=== PATIENT | female | born 2005 | race Caucasian/White ===

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

== ENCOUNTER 2025-08-13 18:49 | Emergency (ER) | payer OTHER, SELFPAY ==
--- OUTSIDE RECORDS SUMMARY | 2025-05-02 09:30 | XMS_ITS ---
Author Organization [facility] Address [address] [place] [address] Care Team Providers Care Hearing Aid Assembly Supervisor Name Role Phone Julieta Zelaya Primary Care Provider [phone] None, No PCP Unavailable Unavailable REASON FOR VISIT Annual Encounters Encounter Location Date Provider Diagnosis [facility] [address] [place] [address] 05/02/2025 Julieta Zelaya Plan Of Treatment Next Appt Details Provider Name:Julieta Zelaya , 04/19/2026 01:00:00 PM, [address], [place], [address], Progress Notes * Bárbara ARIASDOB:2005 (20 yo F)Acc No.[id number]:05/02/2025 Patient: Scott BEARia Provider: Shiela Zelaya D.O. :2005 A ge:20 Y S ex:Female Date:05/02/2025 Address:[address] [id number] Subjective: * Chief Complaints: * 1 . Annual. * Medical History: Objective: * Vitals: Assessment: Plan: * Treatment: * Images: Billing Information: * Visit Code: * Procedure Codes: * Electronic signature of Kimmy Zelaya MD on 08/13/2025 at 06:53 PM PERIODONTAL ASSISTANT Sign off status: Pending * Provider: Shiela Zelaya D.O. Date: 0 05/02/2025 Generated for Yasmin baez/Paolo/Leonid on: 1 10/13/2024 06:53 PM PERIODONTAL ASSISTANT
--- OUTSIDE RECORDS SUMMARY | 2025-06-29 13:30 | XMS_ITS | Encounter Summary ---
Author Organization [facility] Address [address] [place] [address]. [place] [address] Care Team Providers Care Chief Optometry Service Name Role Phone Misti Harrison MD Unavailable [facility] Primary Ca re Provider Etta Ocampo MD Unavailable [phone] Rhina Osullivan MD Unavailable Unavailable Ashley Diaz APRN GUEST REQUEST RUNNER Unavaila ble Delmy Hoffman PA-C Unavailable [phone] Reason for Visit * Diagnostic Imaging XR (Routine) - Pending Review Specialty Diagnoses / Procedures Referred By Contpelon t Referred To Contact Radiology. Diagnoses Rectal prolapse Procedures XR Defecography Delmy Hoffman PA-C [address] [place] [address] Phone: tel: fax: Referral ID Status Reason Start Date Expiration Date V isits Requested Visits Authorized [id number] Pending Review 06/07/2025 06/07/2026 1 1 Encounter Details Date Type Department Care Team (Latest Contact Info) Description 06/29/2025 2:30 PM CDT Ancillary Procedure [facility] Xray [address] [place] [address] Delmy Hoffman PA-C [address] [place] [address] Rectal prolapse Social History Tobacco Use Types Packs/Day Years Used Date Smoking Tobacco: Never Passive Smoke Exposure: Never Smokeless Tobacco: Never Alcohol Use Standard Drinks/Week Comments No 0 (1 standard drink = 0.6 oz pur e alcohol) PHQ-2 Answer Date Recorded PHQ-2 Score 0 05/05/2024 Hunger Vital Sign Answer Date Recorded Within the past 12 months, y ou worried that your food would run out before you got the money to buy more. Never true 03/05/20 23 Within the past 12 months, t he food you bought just didn't last and you didn't have money to get more. Never true 03/05/2023 PRAPARE - Transportation Answer Date Re corded In the past 12 months, has l ack of transportation kept you from medical appointments or from getting medications? No 03/05/2023 Lack of Transportation (Non-Medical) Not on file 03/05/2023 Housing Stability Vital Sign Answer Avel e Recorded In the last 12 months, was t here a time when you were not able to pay the mortgage or rent on time? No 03/05/2023 Number of Places Lived in the Last Year Not on f ile 03/05/2023 In the last 12 months, was t here a time when you did not have a steady place to sleep or slept in a [place] (including now)? No 03/05/2023 Adolescent Education Answer Date Record ed Getting School Help Needed Not on file 06/13 Comments No Sex and Gender Information Value Date Recorded Sex Assigned at Female 04/09/2023 3:22 PM CDT Legal Sex Female 12:17 PM CDT Gender Identity Female 04/09/2023 3:22 PM CDT Sexual Orientation Bisexual 04/09/2023 3: 22 PM CDT documented as of this encounter Plan of Treatment Upcoming Encounters Date Type Department Care Team (Late st Contact Info) Description 08/31/2025 12:40 PM RETAIL OPERATIONS SPECIALIST Therapy Visit [facility] [address] [facility] [address] [place] [address] [place] [address] [place] [address] 09/06/2025 10:10 AM RETAIL OPERATIONS SPECIALIST Therapy Visit [facility] [address] [place] [address] [place] [address] [place] [address] 09/20/2025 10:10 AM RETAIL OPERATIONS SPECIALIST Therapy Visit [facility] [address] [facility] [address] [place] [phone] [place] [address] [place] [address] documented as of this encounter Procedures Procedure Name Priority Date/Time Associated Diagnosis Comments XR DEFECOGRAPHY Routine 06/29/2025 3:29 PM CDT Rectal prolapse documented in this encounter Results * XR Defecography (06/29/2025 3:29 PM CDT) Anatomical Region Laterality Modality Colon Radio Fluoroscop y Impressions 07/05/2025 11:31 AM CDT IMPRESSION: Abnormal descent of middle and posterior compartments. Rectocele measuring 4.6 cm, with retention of contrast. Intraanal intussusception bordering on external anal os. Cul-de-sac hernia that reduces spontaneously. Difficulty initiating evacuation with external sphincter only relaxing under high pressure. I have personally reviewed the examination and initial interpretation and I agree with the findings. JOLENE SPENCE MD Narrative 07/05/2025 11:31 AM CDT XR Defecogram INDICATION: Concern for rectal prolapse, obstructive defecation. FLUOROSCOPY TIME: Less than 3 minutes FINDINGS: Route Driver AP radiograph of lower abdomen and pelvis is unremarkable, other than high colonic stool burden. Approximately 180 cc of thick barium inserted into rectum. Barium paste was also inserted into the vagina. A small BB marker sticker was placed on the perineal body. The patient was then positioned in a Commode chair in lateral projection and a barium tablet was taped to the thigh for calibration purposes. Video and spot images obtained in resting, maximal retention, straining, evacuating and post evacuation states. Ability to retain contrast: Yes Organ configuration and position at rest abnormally low anorectal junction 4.2 cm below the PC line, and rectocele apparent at rest. Anorectal angle was in the range of 130 degrees. Squeeze and strain: Anorectal angle decreased with maximal squeezing/retention. Anorectal angle increased appropriately with straining. No incontinence with straining. Defecation/evacuation: Initiation of evacuation was effortless and accomplished with abnormal descent of anorectal junction to 6.6 cm below PC line, from baseline of 4.2 cm below PC line. Evacuation was incomplete, with retention in the rectocele. There was paradoxical contraction of sphincter during evacuation. Anorectal angle increases with evacuation. Intussusception: Intraanal intussusception reaching the lower end of anal canal Prolapse: No definitive prolapse, but the intussusception reaches the external anal opening. Rectocele: Rectocele measuring 4.6 cm in largest AP measurement Vaginal [place]: Abnormal descent to 1.9 cm below PC line, from baseline of 1.7 cm above PC line. Extra rectal structures (if visible): 5 cm cul-de-sac hernia seen best in third defecogram series Other findings: None Procedure Note Jolene Spence MD - 07/05/2025 XR Defecogram INDICATION: Concern for rectal prolapse, obstructive defecation. FLUOROSCOPY TIME: Less than 3 minutes FINDINGS: Route Driver AP radiograph of lower abdomen and pelvis is unremarkable, other than high colonic stool burden. Approximately 180 cc of thick barium inserted into rectum. Barium paste was also inserted into the vagina. A small BB marker sticker was placed on the perineal body. The patient was then positioned in a Commode chair in lateral projection and a barium tablet was taped to the thigh for calibration purposes. Video and spot images obtained in resting, maximal retention, straining, evacuating and post evacuation states. Ability to retain contrast: Yes Organ configuration and position at rest abnormally low anorectal junction 4.2 cm below the PC line, and rectocele apparent at rest. Anorectal angle was in the range of 130 degrees. Squeeze and strain: Anorectal angle decreased with maximal squeezing/retention. Anorectal angle increased appropriately with straining. No incontinence with straining. Defecation/evacuation: Initiation of evacuation was effortless and accomplished with abnormal descent of anorectal junction to 6.6 cm below PC line, from baseline of 4.2 cm below PC line. Evacuation was incomplete, with retention in the rectocele. There was paradoxical contraction of sphincter during evacuation. Anorectal angle increases with evacuation. Intussusception: Intraanal intussusception reaching the lower end of anal canal Prolapse: No definitive prolapse, but the intussusception reaches the external anal opening. Rectocele: Rectocele measuring 4.6 cm in largest AP measurement Vaginal [place]: Abnormal descent to 1.9 cm below PC line, from baseline of 1.7 cm above PC line. Extra rectal structures (if visible): 5 cm cul-de-sac hernia seen best in third defecogram series Other findings: None IMPRESSION: Abnormal descent of middle and posterior compartments. Rectocele measuring 4.6 cm, with retention of contrast. Intraanal intussusception bordering on external anal os. Cul-de-sac hernia that reduces spontaneously. Difficulty initiating evacuation with external sphincter only relaxing under high pressure. I have personally reviewed the examination and initial interpretation and I agree with the findings. JOLENE SPENCE MD Delmy Hoffman PA-C [facility] Final Result documented in this encounter Visit Diagnoses Diagnosis Rectal prolapse documented in this encounter Administered Medications Inactive Administered Medications - up to 3 most recent administrations Medication Order MAR Action Action Date Dose Rate Site barium sulfate (EZ PAQUE) oral suspension 96% Oral, ONCE, On Fri06/29/25 at 1500, For 1 dose $Given 06/29/2025 3:10 PM CDT 150 mLs barium sulfate (VARIBAR) 40 % pudding/paste 25 mL 25 mL, Oral, ONCE, On Fri06/29/25 at 1500, For 1 dose $Given 06/29/2025 3:10 PM CDT 25 mLs documented in this encounter Additional Health Concerns Assessment Noted Time PHQ-9 Depression Total Score: 3 05/05/20 24 12:58 PM CDT documented as of this encounter Care Teams Chief Optometry Service Relationship Specialty Start Date End Date Clinic - [facility] [address] [place] [phone] PCP - General Clinic 08/19/23 08/02/25 Misti Harrison MD [id number] [place], [place] [id number] brush holder assembler & Neurology - Child & Adolescent Psychiatry 11/29/19 Etta Ocampo MD [address] [facility] [address] [place] [address] Assigned PCP 06/14/24 Rhina Osullivan MD [address] [place] [address] Resident Family Medicine 05/24/25 Ashley Diaz, HOSPITAL ADMITTING CLERK GUEST REQUEST RUNNER [address] [place] [address] [address] [place], [place] [address] Nurse Practitioner Colon & Rectal 05/24/25 Delmy Hoffman PA-C [address] [place], [place] [phone] Assigned Surgical Provider 06/14/25 documented as of this encounter
--- OUTSIDE RECORDS SUMMARY | 2025-07-13 06:15 | XMS_ITS ---
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 Name Role Phone Julieta Zelaya Primary Care Provider None, No PCP Unavailable Unavailable REASON FOR VISIT Lightheadedness Medications Medication SIG (Take, Route, Frequency, Duration) Notes Start Date End Date Status hydrOXYzine HCl 25 MG 1 tablet as needed Orally Once a day; Duration: 30 days Active buPROPion HCl ER (XL) 150 MG 1 tablet in the morning Orally Once a day; Duration: 90 days Active PROzac 10 MG 1 capsule Orally Onc e a day; Duration: 90 days Active FLUoxetine HCl 20 MG 1 capsule Orally On ce a day; Duration: 90 days Active FLUoxetine HCl 10 MG 1 capsule Orally On ce a day; Duration: 90 days 04/19/2025 Active Fluticasone Propionate HFA 110 MCG/ACT 2 puffs Inhalation Twice a day Active Albuterol Sulfate HFA 108 (90 Base) MCG/ACT 1 puff as needed Inhalation every 4 hrs Active Problems Problem Type SNOMED Code ICD Code Onset Dates Problem Status W/U Status Risk Notes Problem Herniation of rectum into vagina (000723500) Rectocele (N81.6) Active confirmed Problem Dizziness (018175681) Dizziness (R42) Active confirmed Vital Signs Height 66.5 in 07/13/2025 Encounters Encounter Location Date Provider Diagnosis [facility] [address] [place] [address] 07/13/2025 Julieta Zelaya Dizziness R42 ; Trem or R25.1 ; Constipation K59.00 ; Rectocele N81.6 and Encounter for counseling regarding contraception Z30.09 Assessments Encounter Date Diagnosis (ICD Code) Assessment Notes Treatment Notes Treatment Clinical Notes Section Notes 07/13/2025 Dizziness (ICD-10 - R42) 07/13/2025 Tremor (ICD-10 - R25.1) 07/13/2025 Constipation (ICD-10 - K59.00) 07/13/2025 Rectocele (ICD-10 - N81.6) 07/13/2025 Encounter for counseling regarding contraception (ICD-10 - Z30.09) 07/13/2025 Richie Arias presents with persistent dizziness and shakiness affecting daily activities, along with ongoing constipation and unilateral sinus symptoms. Persistent dizziness and shakiness Assessment: Patient reports ongoing dizziness and shakiness that occurs unpredictably, including episodes in the morning requiring food intake for relief. Symptoms were previously discussed in March visit along with weight loss, though patient reports weight has stabilized. Episodes occasionally occur in the afternoon but not frequently after eating. Patient denies hot flashes or sweating but reports feeling cold. Previous workup revealed low B12 levels. Patient has been taking daily B12 supplementation with improvement in hand tingling but persistent shakiness. The dizziness causes anxiety for the patient. Differential considerations include hypoglycemia, vitamin deficiency, or anxiety-related symptoms. Plan: - Continue daily B12 supplementation - Previously recommended increased protein intake and pt has not been doing that. Reiterated that recommendation. -Discussed when back from [place] if still symptomatic, would have her consider seeing neuro as potentially exhibiting signs of MS with the dizziness and weakness. Indicates grandfather had hx of MS Constipation Assessment: Patient reports significant bowel movement difficulties requiring self-evacuation at times. Recent evaluation by colorectal specialist with X-ray demonstrating fecal impaction. Patient was previously stable on regular laxatives. Has upcoming appointment with colorectal surgeon next week for further management. Plan: - Follow up with colorectal surgeon appointment next week Unilateral sinus symptoms Assessment: Patient reports worsening allergies with right-sided facial discomfort and asymmetric sinus symptoms. Unilateral sinus thickening can occur and may indicate possible sinus infection, particularly if symptoms are persistent and not improving over time. Plan: - Use warm washcloth on face twice daily - Perform sinus massage to promote natural drainage - Start Flonase nasal spray - Shake well, direct toward outer ear, spray twice daily in each nostril - Will help decrease sinus inflammation and improve drainage - Use Flonase at start of cold or allergy season for prevention of recurrent sinus infectionsThis visit was conducted with the use of audio and video telecommunications system that permits real time communication between the patient and provider. Patient consent for virtual visit was obtained. Contraceptive counseling- pt interested in getting on OCP. Discussed starting low dose. Originating site: [facility] Distant site: pt home Start time: 12:20 Stop time: 12:50 30 minutes spent in chart review, discussing with patient and documentation regarding: - review of previous records - preparation for visit - ordering medications, labs or imaging - documenting visit - Discussing plan of care and management - discussion of care with another health career specialist - direct face to face time with patient including obtaining relevant history, physical exam and discussion of plan of care Patient encouraged to call with any further questions or concerns Plan Of Treatment Treatment Notes Assessment Notes Other Bárbara Arias presents with persistent dizziness and shakiness affecting daily activities, along with ongoing constipation and unilateral sinus symptoms. Persistent dizziness and shakiness Assessment: Patient reports ongoing dizziness and shakiness that occurs unpredictably, including episodes in the morning requiring food intake for relief. Symptoms were previously discussed in March visit along with weight loss, though patient reports weight has stabilized. Episodes occasionally occur in the afternoon but not frequently after eating. Patient denies hot flashes or sweating but reports feeling cold. Previous workup revealed low B12 levels. Patient has been taking daily B12 supplementation with improvement in hand tingling but persistent shakiness. The dizziness causes anxiety for the patient. Differential considerations include hypoglycemia, vitamin deficiency, or anxiety-related symptoms. Plan: - Continue daily B12 supplementation - Previously recommended increased protein intake and pt has not been doing that. Reiterated that recommendation. -Discussed when back from [place] if still symptomatic, would have her consider seeing neuro as potentially exhibiting signs of MS with the dizziness and weakness. Indicates grandfather had hx of MS Constipation Assessment: Patient reports significant bowel movement difficulties requiring self-evacuation at times. Recent evaluation by colorectal specialist with X-ray demonstrating fecal impaction. Patient was previously stable on regular laxatives. Has upcoming appointment with colorectal surgeon next week for further management. Plan: - Follow up with colorectal surgeon appointment next week Unilateral sinus symptoms Assessment: Patient reports worsening allergies with right-sided facial discomfort and asymmetric sinus symptoms. Unilateral sinus thickening can occur and may indicate possible sinus infection, particularly if symptoms are persistent and not improving over time. Plan: - Use warm washcloth on face twice daily - Perform sinus massage to promote natural drainage - Start Flonase nasal spray - Shake well, direct toward outer ear, spray twice daily in each nostril - Will help decrease sinus inflammation and improve drainage - Use Flonase at start of cold or allergy season for prevention of recurrent sinus infectionsThis visit was conducted with the use of audio and video telecommunications system that permits real time communication between the patient and provider. Patient consent for virtual visit was obtained. Contraceptive counseling- pt interested in getting on OCP. Discussed starting low dose. Originating site: [facility] Distant site: pt home Start time: 12:20 Stop time: 12:50 30 minutes spent in chart review, discussing with patient and documentation regarding: - review of previous records - preparation for visit - ordering medications, labs or imaging - documenting visit - Discussing plan of care and management - discussion of care with another health career specialist - direct face to face time with patient including obtaining relevant history, physical exam and discussion of plan of care Patient encouraged to call with any further questions or concerns Next Appt Details Provider Name:Julieta Zelaya , 04/19/2026 01:00:00 PM, [address], [address], [address], Progress Notes * JUANA, BárbaraDOB:2005 (20 yo F)Acc No.[id number]:07/13/2025 Patient: Scott BEARia Provider: Shiela Zelaya D.O. :2005 A ge:20 Y S ex:Female Date:07/13/2025 Address:[address] [place], [place] [address] Subjective: * Chief Complaints: * 1 . Lightheadedness. * HPI: G eneral: Patient presents today for a telemedicine visit. Patient gives permission to be treated with tele/audio communication. History of Present Illness Bárbara Arias returns with persistent dizziness that has been affecting her daily life, along with ongoing gastrointestinal issues and sinus problems. According to Bárbara- The patient continues to experience dizziness that she describes as coming out of nowhere, accompanied by shakiness. These episodes typically occur in the afternoon rather than mornings. This morning she felt shaky and had to eat something for relief. She reports that these symptoms occasionally happen after eating, though not frequently. The dizziness causes her anxiety when it occurs. Since her last visit in March, she is no longer losing weight after previously trying to return to normal eating habits following significant weight loss. She denies hot flashes or sweating but reports feeling cold. She has been taking B12 supplements daily as recommended, which has improved the tingling in her hands, though the shaking persists. Regarding gastrointestinal concerns, she continues to have significant stomach problems and has seen a colorectal specialist. An X-ray showed she was full of stool. She experiences difficulty with bowel movements, sometimes requiring self-evacuation, though she was previously stable with regular laxatives. She has an appointment scheduled with a colorectal surgeon next week. The patient also reports worsening allergies and sinus issues, with the right side of her face feeling off and her sinuses feeling worse on one side compared to the other. Patient would also like to discuss OCP and get on control. She also has forms that need to be filled out for medical clearance for her to travel abroad to [place]. Medical History - Vitamin B12 deficiency with associated peripheral neuropathy (tingling in hands) - Chronic constipation requiring laxative use and manual disimpaction - History of significant weight loss - Recurrent allergic rhinitis/sinusitis Medications and Supplements - B12 supplement by mouth daily - Tingling in hands has improved - Regular laxatives - Was stable with these Allergies - Environmental allergies (specific allergens not specified) Social History - Diet and nutrition: Patient reports trying to return to normal eating habits with focus on increasing protein intake Review of Systems General: Positive for shakiness, negative for weight loss, negative for hot flashes or sweating, positive for feeling cold. HEENT: Positive for allergies, positive for sinus symptoms with right-sided facial discomfort. Gastrointestinal: Positive for constipation with difficulty moving bowels. Neurological: Positive for dizziness, negative for tingling in hands. Psychiatric: Positive for anxiety related to dizziness. * ROS: X ray abdomen - MPRESSION: Abnormal descent of middle and posterior compartments. Rectocele measuring 4.6 cm, with retention of contrast. Intraanal intussusception bordering on external anal os. Cul-de-sac hernia that reduces spontaneously. Difficulty initiating evacuation with external sphincter only relaxing under high pressure. * Medical History: * Surgical History: w isdom teeth 04/04/2025. * Medications: T aking Albuterol Sulfate HFA 108 (90 Base) MCG/ACT Aerosol Solution 1 puff as needed Inhalation every 4 hrs , Taking Fluticasone Propionate HFA 110 MCG/ACT Aerosol 2 puffs Inhalation Twice a day , Taking PROzac 10 MG Capsule 1 capsule Orally Once a day , Taking hydrOXYzine HCl 25 MG Tablet 1 tablet as needed Orally Once a day , Taking buPROPion HCl ER (XL) 150 MG Tablet Extended Release 24 Hour 1 tablet in the morning Orally Once a day , Taking FLUoxetine HCl 20 MG Capsule 1 capsule Orally Once a day , Taking FLUoxetine HCl 10 MG Capsule 1 capsule Orally Once a day Objective: * Vitals: H t: 66.5 in. * Examination: * General Examination: PSYCH: alert, oriented, judgment and insight good. ? Assessment: * Assessment: 1. D izziness - R42 (Primary) 2 . T remor - R25.1 3 . C onstipation - K59.00 4 . R ectocele - N81.6 5 . E ncounter for counseling regarding contraception - Z30.09 Plan: * Treatment: * Images: Billing Information: * Visit Code: 82037 Office Visit, Est Pt., Level 4. * Procedure Codes: * OLOIST Sign off status: Completed true * Provider: Shiela Zelaya DAlOAl Date: Generated for Yasmin baez/Paolo/Leonid on: 10/13/2024 06:52 PM PICCOLOIST History and Physical Notes * HPI (History of Present Illness) Category Sub-Category Detail Notes Category Not es General Patient presents today for a telemedicine visit. Patient gives permission to be treated with tele/audio communication. History of Present Illness Bárbara Arias returns with persistent dizziness that has been affecting her daily life, along with ongoing gastrointestinal issues and sinus problems. According to Bárbara- The patient continues to experience dizziness that she describes as coming out of nowhere, accompanied by shakiness. These episodes typically occur in the afternoon rather than mornings. This morning she felt shaky and had to eat something for relief. She reports that these symptoms occasionally happen after eating, though not frequently. The dizziness causes her anxiety when it occurs. Since her last visit in March, she is no longer losing weight after previously trying to return to normal eating habits following significant weight loss. She denies hot flashes or sweating but reports feeling cold. She has been taking B12 supplements daily as recommended, which has improved the tingling in her hands, though the shaking persists. Regarding gastrointestinal concerns, she continues to have significant stomach problems and has seen a colorectal specialist. An X-ray showed she was full of stool. She experiences difficulty with bowel movements, sometimes requiring self-evacuation, though she was previously stable with regular laxatives. She has an appointment scheduled with a colorectal surgeon next week. The patient also reports worsening allergies and sinus issues, with the right side of her face feeling off and her sinuses feeling worse on one side compared to the other. Patient would also like to discuss OCP and get on control. She also has forms that need to be filled out for medical clearance for her to travel abroad to [place]. Medical History - Vitamin B12 deficiency with associated peripheral neuropathy (tingling in hands) - Chronic constipation requiring laxative use and manual disimpaction - History of significant weight loss - Recurrent allergic rhinitis/sinusitis Medications and Supplements - B12 supplement by mouth daily - Tingling in hands has improved - Regular laxatives - Was stable with these Allergies - Environmental allergies (specific allergens not specified) Social History - Diet and nutrition: Patient reports trying to return to normal eating habits with focus on increasing protein intake Review of Systems General: Positive for shakiness, negative for weight loss, negative for hot flashes or sweating, positive for feeling cold. HEENT: Positive for allergies, positive for sinus symptoms with right-sided facial discomfort. Gastrointestinal: Positive for constipation with difficulty moving bowels. Neurological: Positive for dizziness, negative for tingling in hands. Psychiatric: Positive for anxiety related to dizziness. Examination Category Sub-Category Detail Notes Category Not es *General Examination PSYCH: alert, orie nted, judgment and insight good
--- OUTSIDE RECORDS SUMMARY | 2025-07-18 10:30 | XMS_ITS | Encounter Summary ---
Author Organization [facility] Address [address] [place] [address]. [place] [address] Care Team Providers Care School Plant Consultant Name Role Phone Misti Harrison MD Unavailable [facility] Primary Ca re Provider Etta Ocampo MD Unavailable [phone] Rhina Osullivan MD Unavailable Unavailable Ashley Diaz APRN NETWORK INTELLIGENCE ANALYST Unavaila ble Delmy Hoffman PA-C Unavailable [phone] Reason for Visit * Reason Comments Consult Discuss rectopexy Encounter Details Date Type Department Care Team (Late st Contact Info) Description 07/18/2025 11:30 AM CDT Office Visit [facility] Colon and Rectal Surgery Clinic [address] [place] [address] Yaquelin Ag MD [address] [place] [address] Obstructive defecation (H) (Primary Dx) Social History Tobacco Use Types Packs/Day Years Used Date Smoking Tobacco: Never Passive Smoke Exposure: Never Smokeless Tobacco: Never Tobacco Cessation:Counseling Given: Not Answered Alcohol Use Standard Drinks/Week Comments No 0 (1 standard drink = 0.6 oz pur e alcohol) PHQ-2 Answer Date Recorded PHQ-2 Score 0 05/05/2024 Hunger Vital Sign Answer Date Recorded Within the past 12 months, y ou worried that your food would run out before you got the money to buy more. Never true 03/05/20 Within the past 12 months, t he [...] place to sleep or slept in a alf (including now)? No 03/05/2023 Adolescent Education Answer Date Record ed Getting School Help Needed Not on file 06/13 Comments No Sex and Gender Information Value Date Recorded Sex Assigned at Female 04/09/2023 3:22 PM CDT Legal Sex Female 12:17 PM CDT Gender Identity Female 04/09/2023 3:22 PM CDT Sexual Orientation Bisexual 04/09/2023 3: 22 PM CDT documented as of this encounter Last Filed Vital Signs Vital Sign Reading Time Taken Comments Blood Pressure 112/71 07/18/2025 11:44 AM CDT Pulse 70 07/18/2025 11:44 AM CDT Temperature - - Respiratory Rate - - Oxygen Saturation 98% 07/18/2025 11:44 AM CDT Inhaled Oxygen Concentration - - Weight 70.8 kg (156 lb 1.6 oz) 07/18/2025 11:44 AM CDT Height 168.9 cm (5' 6.5) 07/18/2025 11:44 AM CD T Body Mass Index 24.82 07/18/2025 11:44 AM CDT documented in this encounter Patient Instructions * Patient Instructions* Candie Blank 07/18/2025 11:30 AM CDT Start a daily fiber supplement such as Citrucel or Metamucil POWDER. Start with one tablespoon daily and slowly increase up to three times a day, if needed, over the next 4-6 weeks. *I sent this to your pharmacy Work with pelvic floor physical therapy for a few months then we can follow up with a video visit and see how things are going! Follow up: Please call with any questions or concerns regarding your clinic visit today. It is a pleasure being involved in your health care. Contacts post-consultation depending on your need: Radiology Appointments [phone] Schedule Clinic Appointments [phone] # 1 M-F 7:30 - 5 pm YONAS Schreiber [phone] documented in this encounter Progress Notes * Yaquelin Ag MD - 07/18/2025 11:30 AM CDT Colon and Rectal Surgery Clinic Note RE: Bárbara Arias. : 2005. LEIGHANN: 07/18/2025. Reason for visit: rectocele, intussusception, ODS. HPI: Bárbara is a 20 year old female who presents to clinic for evaluation of pelvic floor dysfunction. She initially saw Delmy SELLERS in our clinic last month. She reports rectal prolapse symptoms since she was 13. She was seen by a Colorectal surgeon at [facility] and reports she was told the prolapse was not severe and to treat with Miralax. Patient feels the tissue prolapse has gotten worse, she cannot tell how much it prolapses out. It does spontaneously reduce. She denies any mucus leakage or rectal bleeding. She endorses symptoms of obstructive defecation. She often has to strain very hard. She has at least one bowel movement a day, usually only small amounts. Stools are small hard pellets mixed with liquid. She takes Miralax once a day, and a multivitamin with fiber in it. Feels that the Miralax helps but not entirely. No fecal incon tinence. She does also endorse intermittent difficulty with urination, where she has to strain moreto pass urine. Has never worked with pelvic floor PT. She had a defecography done on 06/29 which showed a rectocele measuring 4.6 cm with retention of contrast, a 5 cm cul-de-sac hernia that reduces spontaneously, and intra-anal intussusception borderingon the external anal os. Also showed difficulty initiating evacuation with external sphincter only relaxing under high pressure. Delmy reviewed results with patient and ordered pelvic floor physical therapy with biofeedback andreferral to surgeon to discuss possible surgical intervention. No prior anorectal surgeries. No vaginal deliveries. No history of fecal incontinence. XR Defecography (06/29/25) Ability to retain contrast: Yes Organ configuration [...] 4.6 cm in largest AP measurement Vaginal [place]: Abnormal descent to 1.9 cm below PC [...] external sphincter only relaxing under high pressure. Medical history: Past Medical History: Diagnosis Date SANTIAGO (generalized anxiety disorder) Intermittent asthma Surgical history: Knee surgery x 2 Family history: Family History Problem Relation Age of Onset Anxiety Disorder Mother Arthritis Mother Kidney Disease Mother Autism Spectrum Disorder Father Depression Father Cerebrovascular Disease Father Anxiety Disorder Maternal Grandmother Depression Maternal Grandmother Arthritis Maternal Grandmother Anxiety Disorder Paternal Grandmother Autism Spectrum Disorder Paternal Grandfather No Known Problems Mother No Known Problems Father No Hx of IBD or GI malignancy Medications: Current Outpatient Medications Medication Sig Dispense Refill buPROPion (WELLBUTRIN XL) 150 MG 24 hr tablet TAKE 1 TABLET BY MOUTH EVERY MORNING 90 tablet 0 FLUoxetine (PROZAC) 10 MG capsule TAKE 1 CAPSULE BY MOUTH DAILY WITH ONE 20 MG CAPSULE FOR A TOTAL DAILY DOSE OF 30 MG. 90 capsule 1 FLUoxetine (PROZAC) 20 MG capsule TAKE 1 CAPSULE BY MOUTH DAILY WITH ONE 10 MG CAPSULE FOR TOTAL DAILY DOSE OF 30 MG. 90 capsule 1 hydrOXYzine (ATARAX) 25 MG tablet Take 12.5-25 mg by mouth up to three times a day for anxiety. 45 tablet 0 methylcellulose (CITRUCEL) powder Take 0.3 g (1.05 teaspoonful) by mouth 3 times daily as needed. Start with once daily and increase to three times daily as needed 454 g 5 polyethylene glycol (MIRALAX) 17 GM/Dose powder Take 17 g (1 Capful) by mouth daily. 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 Marital status: single. ROS: A complete review of systems was performed with the patient and all systems negative except as per HPI. Physical Examination: BP 112/71 (BP Location: Left arm, Patient Position: Sitting, Cuff Size: Adult Regular) Pulse 70 Ht 1.689 m (5' 6.5) Wt 70.8 kg (156 lb 1.6 oz) LMP 07/05/2025 (Exact Date) SpO2 98% BMI 24.82 kg/m?? Exam was chaperoned by MIGUEL Quevedo General: Well hydrated. No acute distress. Abdomen: Soft, NT, ND. Perianal external examination: Perianal skin: Intact with no excoriation or lichenification. Lesions: No evidence of an external lesion, nodularity, or induration in the perianal region. Eversion of buttocks: There was not evidence of an anal fissure. Skin tags or external hemorrhoids: No. Digital rectal examination: Was performed. Sphincter tone and squeeze function are within normal. No palpable lesions. Moderate rectocele appreciated on bearing down. Rectal intussusception to the low anal canal, no full thickness rectal prolapse. No levator ani tenderness. Bimanual examination was performed. Anoscopy: Was performed. Hemorrhoids: No significant internal hemorrhoids. Lesions: No Laboratory values reviewed: Recent Labs Lab Test 03/05/23 1522 01/01/22 0748 05/15/21 1741 12/12/20 1419 08/14/20 1141 WBC 9.8 < > 8.7 < > 6.5 HGB 12.9 < > 11.7 < > 13.5 PLT 357 < > 314 < > 338 CR -- -- -- -- 0.67 ALBUMIN -- -- -- -- 4.3 BILITOTAL -- -- -- -- 0.3 ALKPHOS -- -- -- -- 131 ALT -- -- -- -- 18 AST -- -- -- -- 12 INR -- -- 0.98 < > -- < > = values in this interval not displayed. Imaging personally reviewed by me: Defecography as above ASSESSMENT Bárbara Arias is a 20 year old female with dyssynergic defecation, moderate rectocele, cul-de-sac hernia and grade IV rectal intussusception. We had a lengthy discussion about rectal prolapse and treatment options. Surgical correction of prolapse with ventral mesh rectopexy could be considered to restore normal anatomy. I believe that durability of repair would be better if this is performed after she completes pelvic floor PT with biofeedback first to retrain the pelvic floor and address dyssynergia, particularly given her young age. I also recommend initiation of fiber to help improve stool consistency. She understood and her questions were answered to her satisfaction. When we are getting closer to scheduling surgery I will plan to refer her to Urogynecology to see if there is a role for vaginal apical support with uterosacral ligament plication at the time of surgery. PLAN 1. Proceed with pelvic floor PT with biofeedback 2. Start Citrucel fiber supplement with total fiber goal 30 grams per day 3. Anticipate scheduling robotic ventral mesh rectopexy surgery in the future - timing to be determined 4. Video visit follow up in a few months after PT Risks, benefits, and alternatives of operative treatment were thoroughly discussed with the patient, she understands these well and agrees to proceed. Time spent: 30 minutes spent on the date of encounter performing chart review, history and exam, documentation and further activities as noted above. Yaquelin Ag MD Colon & Rectal Surgery [facility] Referring Provider: Delmy Hoffman PA-C [address] [place] [address] Primary Care Provider: Ej - Jimmy [facility] LEAD documented in this encounter Nursing Notes * Yana Malcolm EMT - 07/18/2025 11:30 AM CDT Chief Complaint Patient presents with Consult Discuss rectopexy Vitals: 07/18/25 1144 BP: 112/71 BP Location: Left arm Patient Position: Sitting Cuff Size: Adult Regular Pulse: 70 SpO2: 98% Weight: 156 lb 1.6 oz Height: 5' 6.5 Body mass index is 24.82 kg/m??. MIGUEL Quevedo documented in this encounter Plan of Treatment Upcoming Encounters Date Type Department Care Team (Late st Contact Info) Description 08/31/2025 12:40 PM HUB LEAD [facility] [id number] [place] [address] [place] [phone] [place] [address] [address] [place] [address] 09/06/2025 10:10 AM HUB LEAD [facility] [address] [place] [address] [place] [phone] [place] [address] [address] [place] [address] 09/20/2025 10:10 AM HUB LEAD [facility] [address] [place] [phone] [place] [address] [facility] [address] [place] [address] documented as of this encounter Procedures Procedure Name Priority Date/Time Associated Diagnosis Comments CA ANOSCOPY W/WO BRUSH/WASH Routine 07/25/2025 7:57 PM HUB LEAD Obstructive defecation (H) documented in this encounter Visit Diagnoses Diagnosis Obstructive defecation (H)- Primary documented in this encounter Additional Health Concerns Assessment Noted Time PHQ-9 Depression Total Score: 3 05/05/20 24 12:58 PM CDT documented as of this encounter Care Teams School Plant Consultant Relationship Specialty Start Date End Date Clinic - [facility], [facility] [address] [place] [phone] PCP - General Clinic 08/19/23 08/02/25 [place] [address] [place], [place] [id number] [place], [place] [phone] purchasing and fiscal clerk & Neurology - Child & Adolescent Psychiatry 11/29/19 Etta Ocampo MD [address] [facility] [address] [place], [place] [phone] Assigned PCP 06/14/24 Rhina Osullivan MD [address] [facility] [address] [place] [address] Resident Family Medicine 05/24/25 Ashley Diaz APRN NETWORK INTELLIGENCE ANALYST [address] [place] [address] [address] [place], [place] [phone] Nurse Practitioner Colon & Rectal 05/24/25 Delmy Hoffman PA-C [address] [place] [address] Assigned Surgical Provider 06/14/25 documented as of this encounter
--- OUTSIDE RECORDS SUMMARY | 2025-08-03 10:50 | XMS_ITS | Encounter Summary ---
Author Organization [facility] Address [address] [place] [address]. [place] [address] Care Team Providers Care Head Of Commission Department Name Role Phone Misti Harrison MD Unavailable Etta Ocampo MD Unavailable [phone] Rhina Osullivan MD Unavailable Unavailable Ashley Diaz APRN CASINO DUTY MANAGER Unavaila ble Delmy Hoffman PA-C Unavailable [phone] Julieta Zelaya MD Primary Care Provider [phone] Reason for Visit * Rehab Therapy Physical Therapy (Routine: Next available opening) - Authorized Specialty Diagnoses / Procedures Referred By Contac t Referred To Contact Physical Therapy Diagnoses Obstructive defecation (H) [facility] [address] [place] [phone] Phone: tel: Referral ID Status Reason Start Date Expiration Date V isits Requested Visits Authorized [id number] Authorized 07/21/2025 09/21/2025 365 365 Encounter Details Date Type Department Care Team (Latest Contact Info) Description 08/03/2025 10:50 AM VENEER SAWYER Therapy Visit [facility] [address] [facility] [address] [place] [address] [place] [address] [address] [place] [phone] Pelvic floor dysfunction in female (Primary Dx); Obstructive defecation (H) Social History Tobacco Use Types Packs/Day Years [...] place to sleep or slept in a mcc (including now)? No 03/05/2023 Adolescent Education Answer Date Record ed Getting School Help Needed Not on file 06/13 Comments No Sex and Gender Information Value Date Recorded Sex Assigned at Female 04/09/2023 3:22 PM CDT Legal Sex Female 12:17 PM CDT Gender Identity Female 04/09/2023 3:22 PM CDT Sexual Orientation Bisexual 04/09/2023 3: 22 PM CDT documented as of this encounter Progress Notes * Lexus Huitorn, PT - 08/03/2025 10:50 AM CST PHYSICAL THERAPY EVALUATION Type of Visit: Evaluation Fall Risk Screen: Have you fallen 2 or more times in the past year?: No Have you fallen and had an injury in the past year?: No Subjective Prolapse present since 13yo -- saw colorectal at [facility] and was told it wasn't bad but use Miralax. Feels sx are worsening. Will spontaneously reduce. Daily BM but hard and small. Intermittent difficulty with urination and having to force urine stream to start. She doesn't splint externally. Taking Miralax daily (usually around lunch), multi-supplement with fiber in it, recommended fiber supplement but she hasn't started it. Active with dance for her major in school. Presenting condition or subjective complaint: rectocele, intussusception, ODS Date of onset: 07/06/25 (date of PT orders) Relevant medical history: Dates & types of surgery: 2 knee surgeries in 2019 and 2020 Prior diagnostic imaging/testing results: X-ray 06/29 = defecography w/+rectocele She had a defecography done on 06/29 which showed a rectocele measuring 4.6 cm with retention of contrast, a 5 cm cul-de-sac hernia that reduces spontaneously, and intra-anal intussusception bordering on the external anal os. Also showed difficulty initiating evacuation with external sphincter only relaxing under high pressure. Prior therapy history for the same diagnosis, illness or injury: No Prior Level of Function Transfers: Independent Ambulation: Independent ADL: Independent IADL: Independent Living Environment Social support: Alone Type of home: Other Stairs to enter the home: No Ramp: No Stairs inside the home: No Help at home: None Equipment owned: Employment: Not Applicable Hobbies/Interests: Patient goals for therapy: sucsesfully pass bowel movements In school for dance and [employer]. Objective PELVIC EVALUATION ADDITIONAL HISTORY: Sex assigned at : Female Gender identity: Female Pronouns: She/Her Hers Bladder History: Feels bladder filling: Yes Triggers for feeling of inability to wait to go to the bathroom: No How long can you wait to urinate: Gets up at night to urinate: Yes 2 Can stop the flow of urine when urinating: Volume of urine usually released: Small Other issues: Straining to pass urine; Slow or hesitant urine stream; Trouble emptying bladder completely Number of bladder infections in last 12 months: Fluid intake per day: drinking 2-3 water bottles/day (40oz); 1 coffee/day; drinking yogurt protein Vegetarian diet -- breakfast = veggie sausage, egg, potatoes; beans Medications taken for bladder: No Activities causing urine leak: Amount of urine typically leaked: Pads used to help with leaking: Bowel History: Caroline stool mostly 1-2, occasional 3 Frequency of bowel movement: 2 times a week Consistency of stool: Hard Ignores the urge to defecate: Sometimes Other bowel issues: Pain when pooping; Loss of gas; Straining to have bowel movement Length of time spent trying to have a bowel movement: 5 minutes Waking up around the same time daily around 8am. Going to bed around 11pm/12am. Eating breakfast right away in the morning. Does better with snacks during the day rather than big meals. Random sense of her ugency to void BM. Does try to respond to that urge right away. Sexual Function History: Sexual orientation: Bisexual Sexually active: Yes Lubrication used: No No Pelvic pain: Pain or difficulty with orgasms/erection/ejaculation: No State of menopause: Perimenopause (have not gone through menopause yet) Hormone medications: No Are you currently : No Have you been diagnosed with pelvic prolapse or abdominal separation: No Do you get regular exercise: Yes I do this type of exercise: dance Have you tried pelvic floor strengthening exercises for 4 weeks: No Do you have any history of trauma that is relevant to your care that you???d like to share: No Discussed reason for referral regarding pelvic health needs and external/internal pelvic floor muscle examination with patient/guardian. Opportunity provided to ask questions and verbal consent for assessment and intervention was given. POSTURE: WNL LUMBAR SCREEN: AROM WNL PELVIC EXAM External Visual Inspection: At rest: Elevated perineal body With voluntary pelvic floor contraction: Perineal elevation Relaxation of PFM: Yes With intra-abdominal pressure: Cough: Perineal descent Bearing down as defecation: Perineal descent, minimal Integumentary: Introitus: Tight Anal: no concerns External Digital Palpation per Perineum: Ischiocavernosis: Unremarkable Transverse perineal: Tenderness Levator ani: Tenderness Perineal body: Tightness, Tenderness Coccyx: Unremarkable Internal Digital Palpation: Per Vagina: Power = 2/5. Endurance = 8 seconds. Reps = 10. Minimal ability to bulge. Good relaxation post contraction. No prolapse visualized. Tone and tenderness at transverse perineal muscle. Per Rectum: Power = 3/5. Endurance = 10 seconds. Reps = 8 with some delayed relaxation. Good ability to bulge initially, then with increased sense of urge with exam, she was rachel rather than relaxing PFM. EAS with decreased endurance (~8 second hold) but no tension with initial palpation. Min-mod tension at puborectalis and rectocele palpable. Will capture balloon rectal test next visit. ABDOMINAL ASSESSMENT No tenderness with abdominal palpation, minimal restriction palpated over descending colon today. Abdominal Activation/Strength: good ability to contract TA. Assessment & Plan CLINICAL IMPRESSIONS Medical Diagnosis: Obstructive defecation (H); prolapse. PFPT with biofeedback. Treatment Diagnosis: Pelvic floor dysfunction, constipation, urinary hesistancy Impression/Assessment: Patient is a 20 year old female with constipation and rectocele complaints. The following significant findings have been identified: Pain, Decreased proprioception, Impaired muscle performance, and Decreased activity tolerance. These impairments interfere with their ability to perform self care tasks and recreational activities as compared to previous level of function. Clinical Decision Making (Complexity): Clinical Presentation: Stable/Uncomplicated Clinical Presentation Rationale: based on medical and personal factors listed in PT evaluation Clinical Decision Making (Complexity): Low complexity PLAN OF CARE Treatment Interventions: Modalities: Biofeedback, Cryotherapy, Cupping, Dry Needling, E-stim, Hot Pack, Ultrasound Interventions: Gait Training, Manual Therapy, Neuromuscular Re-education, Therapeutic Activity, Therapeutic Exercise, Self-Care/Home Management Half-Way Goals PT Goal 1 Goal Identifier: Bowel Movement Goal Description: She will report ability to have a bowel movement without pain. Rationale: to maximize safety and independence with performance of ADLs and functional tasks;to maximize safety and independence with self cares Target Date: 10/26/25 PT Goal 2 Goal Identifier: Bladder Goal Description: She will report ability to fully empty bladder without straining and without pain. Rationale: to maximize safety and independence with self cares;to maximize safety and independence with performance of ADLs and functional tasks Target Date: 10/26/25 Frequency of Treatment: 1x/week for 1 month, then 2x/month Duration of Treatment: 12 weeks Education Assessment: Learner/Method: Patient;No Barriers to Learning;Listening;Reading;Demonstration;Pictures/Video Education Comments: Educated the patient on HEP with demonstration/picture/verbal instruction. Educated on role of PT and recommended POC. Reviewed goals. Pt reported understanding. Risks and benefits of evaluation/treatment have been explained. Patient/Family/caregiver agrees with Plan of Care. Evaluation Time: Signing Clinician: Lexus Huitron PT ER SAWYER documented in this encounter Plan of Treatment Upcoming Encounters Date Type Department Care Team (Late st Contact Info) Description 08/31/2025 12:40 PM VENEER SAWYER Therapy Visit [address] [phone] [place] [address] [place] [phone] 09/06/2025 10:10 AM VENEER SAWYER Therapy Visit [address] [phone] [place] [address] GO[address] [place] [address] 09/20/2025 10:10 AM VENEER SAWYER Therapy Visit [address] [phone] [place] [address] GO[address] [place] [phone] documented as of this encounter Visit Diagnoses Diagnosis Pelvic floor dysfunction in female- Primary Obstructive defecation (H) documented in this encounter Additional Health Concerns Assessment Noted Time PHQ-9 Depression Total Score: 3 05/05/20 24 12:58 PM CDT documented as of this encounter Care Teams Head Of Commission Department Relationship Specialty Start Date End Date Julieta Zelaya MD [address] [place] [address] PCP - General Family Medicine 08/03/25 Misti Harrison MD [id number] [place] [address] senior qa automation engineer & Neurology - Child & Adolescent Psychiatry 11/29/19 Etta Ocampo MD 10[address] [facility] 100 [place], [place] [phone] Assigned PCP 06/14/24 Rhina Osullivan MD 10[address] [facility] [address] [place] [address] Resident Family Medicine 05/24/25 Ashley Diaz APRN CASINO DUTY MANAGER [address] [place] [address] [address] [place] [address] Nurse Practitioner Colon & Rectal 05/24/25 Delmy Hoffman PA-C [address] [place] [address] Assigned Surgical Provider 06/14/25 documented as of this encounter
--- OUTSIDE RECORDS SUMMARY | 2025-08-13 18:52 | XMS_ITS | Encounter Summary ---
Author Organization [place] Address [address] [place] [address] Care Team Providers Care Fiscal Technician Name Role Phone Misti Harrison MD Unavailable Misti Harrison MD Unavailable Ashley Lopez MD Unavailable [phone] Rhianna Hess MD Unavailable Bell Little MD Primary Care Provid er Siddhartha Cardoso MD Unavailable [phone] Rhianna Hess MD Unavailable Bell Little MD Unavailable + [phone] [facility] re Provider Barbi Guy MD Unavailable Etta Ocampo MD Unavailable [phone] Rhina Osullivan MD Unavailable Unavailable Ashley Diaz APRN SHIRT IRONER Unavaila ble Delmy Hoffman PA-C Unavailable [phone] Julieta Zelaya MD Primary Care Provider + [phone] Encounter Details Date Type Department Care Team (Late st Contact Info) Description 11/26/[address] [facility] [address] [place] [address] Misti Harrison MD [address] [place] [address] [address] [place] [address] Social History Tobacco Use Types Packs/Day Years Used Date Smoking Tobacco: Never Smokeless Tobacco: Never Alcohol Use Standard Drinks/Week Comments No 0 (1 standard drink = 0.6 oz pur e alcohol) PHQ-2 Answer Date Recorded PHQ-2 Score 2 06/19/2021 Comments No Sex and Gender Information Value Date Recorded Sex Assigned at Female 04/09/2023 3:22 PM CDT Legal Sex Female 12:17 PM CDT Gender Identity Female 04/09/2023 3:22 PM CDT Sexual Orientation Bisexual 04/09/2023 3: 22 PM CDT COVID-19 Exposure Response Date Recorded In the last month, have you been in contact with someone who was confirmed or suspected to have Coronavirus / COVID-19? No / Unsure 11/08/2021 11:38 AM SPINNING LATHE OPERATOR HYDRAULIC documented as of this encounter Plan of Treatment Upcoming Encounters Date Type Department Care Team (Late st Contact Info) Description 08/31/2025 12:40 PM SPINNING LATHE OPERATOR HYDRAULIC Therapy Visit [facility] [address] [facility] [address] [place] [phone] [place] [address] [place] [address] 09/06/2025 10:10 AM SPINNING LATHE OPERATOR HYDRAULIC Therapy Visit [facility] [address] [facility] [address] [place] [phone] [place] [address] [place] [address] 09/20/2025 10:10 AM SPINNING LATHE OPERATOR HYDRAULIC Therapy Visit [facility] [address] [facility] [address] [place] [phone] [place] [address] [facility] 300 [place] [address] documented as of this encounter Visit Diagnoses Not on filedocumented in this encounter Additional Health Concerns Assessment Noted Time PHQ-9 Depression Total Score: 0 11/14/19 8:41 AM SPINNING LATHE OPERATOR HYDRAULIC documented as of this encounter Care Teams Fiscal Technician Relationship Specialty Start Date End Date Bell Little MD [address] [place], [place] [address] PCP - General Pediatrics 04/11/21 08/18/23 Clinic - [facility] 2535 [place] [phone] PCP - General Clinic 08/19/23 08/02/25 [place] [address] [place] [phone] PCP - General Family Medicine 08/03/25 Misti Harrison MD [address] [place] [address] [phone] plastics tooling engineer & Neurology - Child & Adolescent Psychiatry 11/29/19 Misti Harrison MD [facility] [address] 593574 Assigned Behavioral Health Provider 07/14/20 04/12/24 Ashley Lopez MD 909 [place] [address] Assigned Musculoskeletal Provider 11/19/20 05/17/22 Rhianna Hess MD [address] [place] [address] Assigned PCP 11/19/20 08/23/22 Siddhartha Cardoso MD [address] 505 [place] [address] Assigned Pediatric Specialist Provider 04/27/22 07/25/23 Rhianna Hess MD 202 [place] [address] Assigned PCP 08/24/22 05/09/23 Bell Little MD 1021 [facility] 100 [place] [address] Assigned PCP 05/10/23 10/15/23 Barbi Guy MD 717 [facility] 370 [place] [address] Assigned PCP 10/16/23 06/13/24 Etta Ocampo MD [address] [facility] 100 [place] [address] Assigned PCP 06/14/24 Rhina Osullivan MD [address] [facility] 100 [place] [address] Resident Family Medicine 05/24/25 Ashley Diaz, AUTOPSY PATHOLOGIST SHIRT IRONER 420 [facility] 450 [place] [address] Nurse Practitioner Colon & Rectal 05/24/25 Delmy Hoffman PA-C 9 [place] [address] Assigned Surgical Provider 06/14/25 documented as of this encounter
--- OUTSIDE RECORDS SUMMARY | 2025-08-13 18:52 | XMS_ITS | Encounter Summary ---
Author Organization [facility] Address [address] [place] [address] Care Team Providers Care House Designer Name Role Phone Misti Harrison MD Unavailable Misti Harrison MD Unavailable Ashley Lopez MD Unavailable [phone] Rhianna Hess MD Unavailable Bell Little MD Primary Care Provid er Siddhartha Cardoso MD Unavailable [phone] Rhianna Hess MD Unavailable Bell Little MD Unavailable + [phone] [facility] re Provider Barbi uGy MD Unavailable Etta Ocampo MD Unavailable [phone] Rhina Osullivan MD Unavailable Unavailable Ashley Diaz APRN AUTO STRIPER Unavaila ble Delmy Hoffman PA-C Unavailable [phone] Julieta Zelaya MD Primary Care Provider [phone] Encounter Details Date Type Department Care Team (Late st Contact Info) Description 05/08/2022 MyC Medical Advice [facility] 2024 [place] [address] Andrea Barraza Social History Tobacco Use Types Packs/Day Years Used Date Smoking Tobacco: Never Smokeless Tobacco: Never Alcohol Use Standard Drinks/Week Comments No 0 (1 standard drink = 0.6 oz pur e alcohol) PHQ-2 Answer Date Recorded PHQ-2 Score 0 01/21/2022 Comments No Sex and Gender Information Value Date Recorded Sex Assigned at Female 04/09/2023 3:22 PM CDT Legal Sex Female 12:17 PM CDT Gender Identity Female 04/09/2023 3:22 PM CDT Sexual Orientation Bisexual 04/09/2023 3: 22 PM CDT documented as of this encounter Plan of Treatment Upcoming Encounters Date Type Department Care Team (Late st Contact Info) Description 08/31/2025 12:40 PM SPECIAL MACHINE OPERATOR Therapy Visit [address] [place] [phone] [place] [address] [place] [address] 09/06/2025 10:10 AM SPECIAL MACHINE OPERATOR Therapy Visit [address] [place] [phone] [place] [address] [address] 300 [place] [address] 09/20/2025 10:10 AM SPECIAL MACHINE OPERATOR Therapy Visit [address] [place] [phone] [place] [address] [address] [place] [address] documented as of this encounter Visit Diagnoses Not on filedocumented in this encounter Additional Health Concerns Assessment Noted Time PHQ-9 Depression Total Score: 0 11/14/19 8:41 AM SPECIAL MACHINE OPERATOR documented as of this encounter Care Teams House Designer Relationship Specialty Start Date End Date Bell Little MD 2024 [place] [address] PCP - General Pediatrics 04/11/21 08/18/23 Clinic - [address] [phone] PCP - General Clinic 08/19/23 08/02/25 Julieta Zelaya MD [address] [place] [address] PCP - General Family Medicine 08/03/25 Misti Harrison MD [address] [place] [address] cutter v groove & Neurology - Child & Adolescent Psychiatry 11/29/19 Misti Harrison MD [address] [address] Assigned Behavioral Health Provider 07/14/20 04/12/24 Ashley Lopez MD 909 [place] [address] Assigned Musculoskeletal Provider 11/19/20 05/17/22 Rhianna Hess MD 2024 [place] [address] Assigned PCP 11/19/20 08/23/22 Siddhartha Cardoso MD [address]50 [address] 505 [place] [address] Assigned Pediatric Specialist Provider 04/27/22 07/25/23 Rhianna Hess MD [address] [place] [address] Assigned PCP 08/24/22 05/09/23 Bell Little MD [facility]21 [facility] 100 [place], [place] [phone] Assigned PCP 05/10/23 10/15/23 Barbi Guy MD 717 [facility] [address] 370 [place], [place] 149785 Assigned PCP 10/16/23 06/13/24 Etta Ocampo MD [address] 100 [place], [place] [phone] Assigned PCP 06/14/24 Rhina Osullivan MD [address] [facility] 100 [place] [address] Resident Family Medicine 05/24/25 Ashley Diaz, HAM CLERK AUTO STRIPER 420 [facility] 450 [place] [address] Nurse Practitioner Colon & Rectal 05/24/25 Delmy Hoffman PA-C 909 [facility] [address] Assigned Surgical Provider 06/14/25 documented as of this encounter
--- OUTSIDE RECORDS SUMMARY | 2025-08-13 18:52 | XMS_ITS | Encounter Summary ---
Author Organization [place] Address [address] [place] [address]. [place] [address] Care Team Providers Care Glove Brusher Name Role Phone Misti Harrison MD Unavailable [facility] Primary Ca re Provider Etta Ocampo MD Unavailable [phone] Rhina Osullivan MD Unavailable Unavailable Ashley Diaz APRN DISBURSEMENT CLERK Unavaila ble Delmy Hoffman PA-C Unavailable [phone] Reason for Referral * Rehab Therapy Physical Therapy (Routine: Next available opening) - Authorized Specialty Diagnoses / Procedures Referred By Contpelon t Referred To Contact Physical Therapy Diagnoses Obstructive defecation (H) [facility] [address] [place] [phone] Phone: tel: Referral ID Status Reason Start Date Expiration Date V isits Requested Visits Authorized [id number] Authorized 07/21/2025 09/21/2025 365 365 Question Answer Course of Action: Evaluation and Treatment Specialty Services: Pelvic Health Pelvic Health: Obstructive Defecation, Prolapse Patient Scheduling Instructions: [facility] will call you to coordinate your care as prescribed by your provider. If you don't hear from a outside sales representative insurance within 2 business days, please call . Additional Information: Pelvic floor physical therapy with biofeedback. Comments Please be aware that coverage of these services is subject to the terms and limitations of your health insurance plan. Call member services at your health plan with any benefit or coverage questions. [facility] will call you to coordinate your care as prescribed by your provider. If you don't hear from a outside sales representative insurance within 2 business days, please call . Encounter Details Date Type Department Care Team (Late st Contact Info) Description 07/06/2025 Orders Only [facility] [address] [address] Delmy Hoffman PA-C 909 [place], [place] 219055 Obstructive defecation (H) (Primary Dx) Social History [...] place to sleep or slept in a detention (including now)? No 03/05/2023 Adolescent Education Answer [...] st Contact Info) Description 08/31/2025 12:40 PM VIDEOGAME DESIGNER Therapy Visit [facility] [id number] [place] [address] [place] [phone] [place] [address] [place] [address] 09/06/2025 10:10 AM VIDEOGAME DESIGNER Therapy Visit [facility] [id number] [place], [place] [address] [address] [place] [address] [place] [address] [facility] [address] [place] [address] 09/20/2025 10:10 AM VIDEOGAME DESIGNER Therapy Visit [address] [facility] [address] [place] [phone] [place] [address] [place] [address] Scheduled Referrals Name Type Priority Associated Diagnoses Orde r Schedule Physical Therapy Photovoltaic Installation Technician Referral Referral Routine: Next available opening Obstructive defecation (H) Expected: 07/06/2025 (Approximate), Expires: 07/06/2026 documented as of this encounter Visit Diagnoses Diagnosis Obstructive defecation (H)- Primary documented in this encounter Additional Health Concerns Assessment Noted Time PHQ-9 Depression Total Score: 3 05/05/20 24 12:58 PM CDT documented as of this encounter Care Teams Glove Brusher Relationship Specialty Start Date End Date Clinic - [place] [address] [place] [phone] PCP - General Clinic 08/19/23 08/02/25 Misti Harrison MD [address] [place] [id number] [place] [address] stitch bonding machine tender helper & Neurology - Child & Adolescent Psychiatry 11/29/19 Etta Ocampo MD 1099 [facility] 100 [place], [place] [phone] Assigned PCP 06/14/24 Rhina Osullivan MD [address] [address] Resident Family Medicine 05/24/25 Ashley Diaz APRN DISBURSEMENT CLERK 420 [facility] 450 [place], [place] 563455 Nurse Practitioner Colon & Rectal 05/24/25 Delmy Hoffman PA-C 909 [place], [place] 189805 Assigned Surgical Provider 06/14/25 documented as of this encounter
--- OUTSIDE RECORDS SUMMARY | 2025-08-13 18:52 | XMS_ITS | Encounter Summary ---
Author Organization [place] Address [address] [place] [address]. [place] [address] Care Team Providers Care Desk Top Publisher Name Role Phone Misti Harrison MD Unavailable [facility] Primary Ca re Provider Etta Ocampo MD Unavailable [phone] Rhina Osullivan MD Unavailable Unavailable Ashley Diaz APRN EXCELLENCE MANAGER Unavaila ble Delmy Hoffman PA-C Unavailable Reason for Visit * Reason Onset Date Comments Appointment 07/07/2025 New patient Encounter Details Date Type Department Care Team (Late st Contact Info) Description 07/07/2025 [facility] Colon and Rectal Surgery [address] [place] [address] Yaquelin Ag MD [address] [place] [address] Appointment (New patient ) Social History Tobacco Use Types Packs/Day Years [...] place to sleep or slept in a assisted (including now)? No 03/05/2023 Adolescent Education Answer Date Record ed Getting School Help Needed Not on file 06/13 Comments No Sex and Gender Information Value Date Recorded Sex Assigned at Female 04/09/2023 3:22 PM CDT Legal Sex Female 12:17 PM CDT Gender Identity Female 04/09/2023 3:22 PM CDT Sexual Orientation Bisexual 04/09/2023 3: 22 PM CDT documented as of this encounter Miscellaneous Notes * Telephone Encounter - Brea Shannon - 07/07/2025 11:02 AM CDT Patient confirmed scheduled appointment: Date: 07/18/25 Time: 1130 am Visit type: New Patient Provider: Location: [facility] Testing/imaging: n/a Additional notes: discuss potential rectopexy documented in this encounter Plan of Treatment Upcoming Encounters Date Type Department Care Team (Late st Contact Info) Description 08/31/2025 12:40 PM MONOGRAM OPERATOR Therapy Visit [facility] [address] [place] [phone] [place] [address] [place] [address] 09/06/2025 10:10 AM MONOGRAM OPERATOR Therapy Visit [facility] [address] [place] [address] 300 [place] [phone] [place] [address] [place] [address] 09/20/2025 10:10 AM MONOGRAM OPERATOR Therapy Visit [address] [phone] [place] [address] [place] [address] documented as of this encounter Visit Diagnoses Not on filedocumented in this encounter Additional Health Concerns Assessment Noted Time PHQ-9 Depression Total Score: 3 05/05/20 24 12:58 PM CDT documented as of this encounter Care Teams Desk Top Publisher Relationship Specialty Start Date End Date Clinic - [facility] 2535 [place] [phone] PCP - General Clinic 08/19/23 08/02/25 Misti Harrison MD [address] [place] [phone] [place] [address] assistant refinery operator & Neurology - Child & Adolescent Psychiatry 11/29/19 Etta Ocampo MD 1099 [facility] 100 [place] [address] Assigned PCP 06/14/24 Rhina Osullivan MD 1099 [address] 100 [place] [address] Resident Family Medicine 05/24/25 Ashley Diaz APRN EXCELLENCE MANAGER [address] [place] [address] 450 [place], [place] 221925 Nurse Practitioner Colon & Rectal 05/24/25 Delmy Hoffman PA-C [address] [place] [address] Assigned Surgical Provider 06/14/25 documented as of this encounter
--- OUTSIDE RECORDS SUMMARY | 2025-08-13 18:52 | XMS_ITS | Encounter Summary ---
Author Organization [place] Address [address] [place] [address] Care Team Providers Care Condominium Association Manager Name Role Phone Misti Harrison MD Unavailable Misti Harrison MD Unavailable Ashley Lopez MD Unavailable [phone] Rhianna Hess MD Unavailable Bell Little MD Primary Care Provid er Siddhartha Cardoso MD Unavailable [phone] Rhianna Hess MD Unavailable Bell Little MD Unavailable + [phone] [employer] re Provider Barbi Guy MD Unavailable Etta Ocampo MD Unavailable [phone] Rhina Osullivan MD Unavailable Unavailable Ashley Diaz APRN BLINTZE ROLLER Unavaila ble Delmy Hoffman PA-C Unavailable [phone] Julieta Zelaya MD Primary Care Provider [phone] Encounter Details Date Type Department Care Team (Late st Contact Info) Description 12/11/2021 MyC Medical Advice [facility] 2024 [place] [address] Misti Harrison MD [address] [facility] F[address] [place] [address] Social History Tobacco Use Types Packs/Day Years [...] st Contact Info) Description 08/31/2025 12:40 PM NURSING UNIT MANAGER Therapy Visit [address] [phone] [place] [address] [address] [place] [address] 09/06/2025 10:10 AM NURSING UNIT MANAGER Therapy Visit [address] [place] [phone] [place] [address] [address] 300 [place] [address] 09/20/2025 10:10 AM NURSING UNIT MANAGER Therapy Visit [address] [place] [phone] [place] [address] [address] 300 [place], [place] 896667 documented as of this encounter Visit Diagnoses Not on filedocumented in this encounter Additional Health Concerns Assessment Noted Time PHQ-9 Depression Total Score: 0 11/14/19 21 8:41 AM NURSING UNIT MANAGER documented as of this encounter Care Teams Condominium Association Manager Relationship Specialty Start Date End Date Bell Little MD [address] [place] [address] PCP - General Pediatrics 04/11/21 08/18/23 Clinic - [address] [phone] PCP - General Clinic 08/19/23 08/02/25 Julieta Zelaya MD [address] [place] [address] [phone] PCP - General Family Medicine 08/03/25 Misti Harrison MD [address] [place] [address] long filler cigar roller machine & Neurology - Child & Adolescent Psychiatry 11/29/19 Misti Harrison MD [address] [place] [address] Assigned Behavioral Health Provider 07/14/20 04/12/24 Ashley Lopez MD 909 [place] [address] Assigned Musculoskeletal Provider 11/19/20 05/17/22 Rhianna Hess MD [address] [place] [address] Assigned PCP 11/19/20 08/23/22 Siddhartha Cardoso MD [address] 505 [place] [address] Assigned Pediatric Specialist Provider 04/27/22 07/25/23 Rhianna Hess MD [address] [place] [address] Assigned PCP 08/24/22 05/09/23 Bell Little MD 1021 [facility] 100 [place], [place] [phone] Assigned PCP 05/10/23 10/15/23 Barbi Guy MD 717 [facility] 370 [place] [address] Assigned PCP 10/16/23 06/13/24 Etta Ocampo MD 1099 [facility] 100 [place], [place] [phone] Assigned PCP 06/14/24 Rhina Osullivan MD 1099 [facility] 100 [place] [address] Resident Family Medicine 05/24/25 Ashley Diaz, CONFERENCE COORDINATOR BLINTZE ROLLER 420 [facility] 450 [place], [place] 6[address] Nurse Practitioner Colon & Rectal 05/24/25 Delmy Hoffman, SIA 909 [place], [place] 855525 Assigned Surgical Provider 06/14/25 documented as of this encounter
--- OUTSIDE RECORDS SUMMARY | 2025-08-13 18:52 | XMS_ITS | Encounter Summary ---
Author Organization [facility] Address [address] [place] [address] Care Team Providers Care Cable Coverer Name Role Phone Misti Harrison MD Unavailable Misti Harrison MD Unavailable Rhianna Hess MD Unavailable Bell Little MD Primary Care Provid er Siddhartha Cardoso MD Unavailable [phone] Rhianna Hess MD Unavailable Bell Little MD Unavailable [phone] [facility] Primary Ca re Provider Barbi Guy MD Unavailable Etta Ocampo MD Unavailable [phone] Rhina Osullivan MD Unavailable Unavailable Ashley Diaz APRN HAND TUFTER Unavaila ble Delmy Hoffman PA-C Unavailable [phone] Julieta Zelaya MD Primary Care Provider +- [phone] Encounter Details Date Type Department Care Team (Late st Contact Info) Description 05/23/2022 MyC Medical Advice [facility] 2024 [place] [address] Andrea Barraza Social History Tobacco [...] st Contact Info) Description 08/31/2025 12:40 PM SALES ACCOUNT DIRECTOR Therapy Visit [address] [phone] [place] [address] [address] [place] [address] 09/06/2025 10:10 AM SALES ACCOUNT DIRECTOR Therapy Visit [address] [phone] [place] [address] [address] [place] [address] 09/20/2025 10:10 AM SALES ACCOUNT DIRECTOR Therapy Visit [address] [phone] [place] [address] [address] [place] [address] documented as of this encounter Visit Diagnoses Not on filedocumented in this encounter Additional Health Concerns Assessment Noted Time PHQ-9 Depression Total Score: 0 11/14/19 8:41 AM SALES ACCOUNT DIRECTOR documented as of this encounter Care Teams Cable Coverer Relationship Specialty Start Date End Date Bell Little MD 2024 [place] [address] PCP - General Pediatrics 04/11/21 08/18/23 Clinic - [place] [address] [place] [phone] PCP - General Clinic 08/19/23 08/02/25 Julieta Zelaya MD [address] [place] [phone] PCP - General Family Medicine 08/03/25 [place] [address] [place] [address] nurse anesthesia program director & Neurology - Child & Adolescent Psychiatry 11/29/19 Misti Harrison MD [facility] [address] [address] Assigned Behavioral Health Provider 07/14/20 04/12/24 Rhianna Hess MD 2024 [place] [address] Assigned PCP 11/19/20 08/23/22 Siddhartha Cardoso MD [address] [place] [address] Assigned Pediatric Specialist Provider 04/27/22 07/25/23 Rhianna Hess MD 2025 [place] [address] Assigned PCP 08/24/22 05/09/23 Bell Little MD 1021 [facility] E [facility] 100 [place] [address] Assigned PCP 05/10/23 10/15/23 Barbi Guy MD 717 [facility] 370 [place] [address] Assigned PCP 10/16/23 06/13/24 Etta Ocampo MD [address] [facility] 100 [place], [place] [phone] Assigned PCP 06/14/24 Rhina Osullivan MD 10[address] [facility] 100 [place] [address] Resident Family Medicine 05/24/25 Ashley Diaz, PLUMBER GASFITTER HAND TUFTER 420 [facility] 450 [place] [address] Nurse Practitioner Colon & Rectal 05/24/25 Delmy Hoffman PA-C 909 [place], [place] 938845 Assigned Surgical Provider 06/14/25 documented as of this encounter
--- OUTSIDE RECORDS SUMMARY | 2025-08-13 18:52 | XMS_ITS | Encounter Summary ---
Author Organization [place] Address [address] [place] [address]. [place] [address] Care Team Providers Care Private Equity Associate Name Role Phone Misti Harrison MD Unavailable [facility] Primary Ca re Provider Etta Ocampo MD Unavailable [phone] Rhina Osullivan MD Unavailable Unavailable Ashley Diaz APRN BUSINESS CASE ANALYST Unavaila ble Delmy Hoffman PA-C Unavailable [phone] Encounter Details Date Type Department Care Team (Latest Contact Info) Description 06/29/2025 Travel Social History Tobacco Use Types Packs/Day Years [...] st Contact Info) Description 08/31/2025 12:40 PM BRIDGE OPERATOR Therapy Visit [address] [place] [phone] [place] [address] [address] [place] [address] 09/06/2025 10:10 AM BRIDGE OPERATOR Therapy Visit [address] [place] [phone] [place] [address] [address] [place] [address] 09/20/2025 10:10 AM BRIDGE OPERATOR Therapy Visit [address] [facility] [address] [place] [phone] [place] [address] [address] [place] [address] documented as of this encounter Visit Diagnoses Not on filedocumented in this encounter Additional Health Concerns Assessment Noted Time PHQ-9 Depression Total Score: 3 05/05/20 24 12:58 PM CDT documented as of this encounter Care Teams Private Equity Associate Relationship Specialty Start Date End Date Clinic - [facility] 2535 [place] [phone] PCP - General Clinic 08/19/23 08/02/25 Misti Harrison MD [address] [place], [place] [address] probation and patrol agent & Neurology - Child & Adolescent Psychiatry 11/29/19 Etta Ocampo MD 1099 [facility] 100 [place] [address] Assigned PCP 06/14/24 Rhina Osullivan MD 1099 [facility] 100 [place] [address] Resident Family Medicine 05/24/25 Ashley Diaz APRN BUSINESS CASE ANALYST [address] [place] [address] 450 [place] [address] Nurse Practitioner Colon & Rectal 05/24/25 Delmy Hoffman PA-C 909 [place], [place] [address] Assigned Surgical Provider 06/14/25 documented as of this encounter
--- OUTSIDE RECORDS SUMMARY | 2025-08-13 18:52 | XMS_ITS | Encounter Summary ---
Author Organization [place] Address [address] [place] [address]. [place] [address] Care Team Providers Care Hose Finisher Name Role Phone ArmanibrunoMisti valenzuela MD Unavailable [facility] Primary Ca re Provider Etta Ocampo MD Unavailable [phone] Rhina Osullivan MD Unavailable Unavailable Ashley Diaz APRN DEEP TISSUE MASSAGE THERAPIST Unavaila ble Delmy Hoffman PA-C Unavailable [phone] Julieta Zelaya MD Primary Care Provider [phone] Reason for Visit * Reason Onset Date Comments Call Back 07/04/2025 Results 07/04/2025 Encounter Details Date Type Department Care Team ([facility] st Contact Info) Description 07/04/2025 [facility] [address] [phone] Delmy Hoffman PA-C 909 [place] [address] Call Back; Results Social History Tobacco Use Types Packs/Day Years [...] place to sleep or slept in a correction (including now)? No 03/05/2023 Adolescent Education Answer [...] encounter Miscellaneous Notes * Telephone Encounter - Agus Salas - 07/04/2025 10:04 AM CDT [facility] Phone Message May a detailed message be left on voicemail: yes Reason for Call: Requesting call back in regards to defecography and x ray results. Action Taken: Other: clr Travel Screening: Not Applicable Date of Service: documented in this encounter Plan of Treatment Upcoming Encounters Date Type Department Care Team (Late st Contact Info) Description 08/31/2025 12:40 PM TENDERIZER TENDER Therapy Visit [facility] [address] [employer] [address] [place] [phone] [place] [address] [place] [address] 09/06/2025 10:10 AM TENDERIZER TENDER Therapy Visit [facility] [address] [place] [address] 300 [place] [phone] [place] [address] [place] [address] 09/20/2025 10:10 AM TENDERIZER TENDER Therapy Visit [facility] [address] [place] [phone] [place] [address] [place] [address] documented as of this encounter Visit Diagnoses Not on filedocumented in this encounter Additional Health Concerns Assessment Noted Time PHQ-9 Depression Total Score: 3 05/05/20 24 12:58 PM CDT documented as of this encounter Care Teams Hose Finisher Relationship Specialty Start Date End Date Clinic - [facility] 2535 [place] [phone] PCP - General Clinic 08/19/23 08/02/25 Julieta Zelaya MD 1687 [place], [place] [phone] PCP - General Family Medicine 08/03/25 Misti Harrison MD [address] [place], [place] [phone] [place] [address] mix maker & Neurology - Child & Adolescent Psychiatry 11/29/19 Etta Ocampo MD 1099 [facility] 100 [place] [address] Assigned PCP 06/14/24 Rhina Osullivan MD 1099 [facility] 100 [place] [address] Resident Family Medicine 05/24/25 Ashley Diaz APRN DEEP TISSUE MASSAGE THERAPIST [address] [place] [address] 450 [place] [address] Nurse Practitioner Colon & Rectal 05/24/25 Delmy Hoffman PA-C 909 [place] [address] Assigned Surgical Provider 06/14/25 documented as of this encounter
--- OUTSIDE RECORDS SUMMARY | 2025-08-13 18:52 | XMS_ITS | Encounter Summary ---
Author Organization [place] Address [address] [place] [address]. [place] [address] Care Team Providers Care Belt Molder Name Role Phone Misti Harrison MD Unavailable [facility] Primary Ca re Provider Etta Ocampo MD Unavailable [phone] Rhina Osullivan MD Unavailable Unavailable Ashley Diaz APRN BALL ENDER Unavaila ble Delmy Hoffman PA-C Unavailable [phone] Reason for Visit * Reason Onset Date Comments Appointment 07/06/2025 New patient Encounter Details Date Type Department Care Team (Late st Contact Info) Description 07/06/2025 [facility] Colon and Rectal Surgery [address] [place] [address] Yaquelin Ag MD [address] [place] [address] Appointment (New patient ) Social History [...] place to sleep or slept in a [facility] (including now)? No 03/05/2023 Adolescent Education Answer [...] * Telephone Encounter - Brea Shannon - 07/06/2025 12:59 PM CDT Left Voicemail (1st Attempt) and Sent Mychart (1st Attempt) for the patient to call back and schedule the following: Appointment type: New Patient Provider: Return date: next available Specialty phone number: [phone] Additional appointment(s) needed: n/a Additonal Notes: discuss potential rectopexy documented in this encounter Plan of Treatment Upcoming Encounters Date Type Department Care Team (Late st Contact Info) Description 08/31/2025 12:40 PM COMPRESSOR BATTERY PELLETS Therapy Visit [facility] [address] [facility] [address] [place] [phone] [place] [address] [place] [address] 09/06/2025 10:10 AM COMPRESSOR BATTERY PELLETS Therapy Visit [facility] [address] [place] [address] [address] [place] [phone] [place] [address] [place], [place] [phone] 09/20/2025 10:10 AM COMPRESSOR BATTERY PELLETS Therapy Visit [address] [phone] [place] [address] [place], [place] [address] documented as of this encounter Visit Diagnoses Not on filedocumented in this encounter Additional Health Concerns Assessment Noted Time PHQ-9 Depression Total Score: 3 05/05/20 24 12:58 PM CDT documented as of this encounter Care Teams Belt Molder Relationship Specialty Start Date End Date Clinic - [facility] 2535 [place] [phone] PCP - General Clinic 08/19/23 08/02/25 Misti Harrison MD [address] [place], [place] [phone] [place], [place] [address] portable machine cutter & Neurology - Child & Adolescent Psychiatry 11/29/19 Etta Ocampo MD 1099 [facility] 100 [place], [place] [phone] Assigned PCP 06/14/24 Rhina Osullivan MD 1099 [facility] 100 [place] [address] Resident Family Medicine 05/24/25 Ashley Diaz APRN BALL ENDER [address] [address] Nurse Practitioner Colon & Rectal 05/24/25 Delmy Hoffman PA-C 909 [place] [address] Assigned Surgical Provider 06/14/25 documented as of this encounter
--- OUTSIDE RECORDS SUMMARY | 2025-08-13 18:52 | XMS_ITS | Encounter Summary ---
Author Organization [place] Address [address] [place] [address]. [place] [address] Care Team Providers Care Exercise Instruct Name Role Phone ArmanibrunoMisti valenzuela MD Unavailable [facility] Primary Ca re Provider Etta Ocampo MD Unavailable [phone] Rhina Osullivan MD Unavailable Unavailable Ashley Diaz APRN FUNCTIONAL TESTER Unavaila ble Delmy Hoffman PA-C Unavailable [phone] Julieta Zelaya MD Primary Care Provider [phone] Encounter Details Date Type Department Care Team (Late st Contact Info) Description 07/04/2025 [facility] Colon and Rectal Surgery Clinic [address] [place] [address] Delmy Hoffman PA-C [address] [place] [address] Social History Tobacco Use Types Packs/Day Years [...] place to sleep or slept in a nursing home (including now)? No 03/05/2023 Adolescent Education Answer [...] st Contact Info) Description 08/31/2025 12:40 PM BOTTLE SELECTOR Therapy Visit [facility] [address] [facility] [address] [place] [phone] [place] [address] [address] [place] [address] 09/06/2025 10:10 AM BOTTLE SELECTOR Therapy Visit [facility] [address] [address] [facility] [address] [place] [phone] [place] [address] [address] [place] [address] 09/20/2025 10:10 AM BOTTLE SELECTOR Therapy Visit [facility] [address] [place] [phone] [place] [address] [place] [address] documented as of this encounter Visit Diagnoses Not on filedocumented in this encounter Additional Health Concerns Assessment Noted Time PHQ-9 Depression Total Score: 3 05/05/20 24 12:58 PM CDT documented as of this encounter Care Teams Exercise Instruct Relationship Specialty Start Date End Date Clinic - [facility] 2535 [facility] [place] [phone] PCP - General Clinic 08/19/23 08/02/25 Julieta Zelaya MD [address] [place] [phone] PCP - General Family Medicine 08/03/25 Misti Harrison MD [address] [place] [phone] [place], [place] [phone] under sheriff & Neurology - Child & Adolescent Psychiatry 11/29/19 Etta Ocampo MD [address] [facility] 100 [place], [place] [phone] Assigned PCP 06/14/24 Rhina Osullivan MD [address] [place] [address] [place] [address] Resident Family Medicine 05/24/25 Ashley Diaz, SIDE STAPLER FUNCTIONAL TESTER [address] [address] Nurse Practitioner Colon & Rectal 05/24/25 Delmy Hoffman PA-C [address] [place] [address] Assigned Surgical Provider 06/14/25 documented as of this encounter
--- OUTSIDE RECORDS SUMMARY | 2025-08-13 18:52 | XMS_ITS | Encounter Summary ---
Author Organization [place] Address 2450 [facility] [place] [address] Care Team Providers Care Epic Professional Name Role Phone Misti Harrison MD Unavailable [facility] Primary Ca re Provider Etta Ocampo MD Unavailable [phone] Rhina Osullivan MD Unavailable Unavailable Ashley Diaz APRN BATTERY FILLER Unavaila ble Delmy Hoffman PA-C Unavailable [phone] Julieta Zelaya MD Primary Care Provider [phone] Encounter Details Date Type Department Care Team (Late st Contact Info) Description 06/16/2025 My[facility] Medical Advice [facility] [address] [place] [address] Kaye Robb, CONSUMER SERVICES CONSULTANT Social History Tobacco Use Types Packs/Day Years [...] st Contact Info) Description 08/31/2025 12:40 PM MONOMER RECOVERY OPERATOR Therapy Visit [facility] [address] [place] [address] [place] [phone] [place] [address] [place] [address] 09/06/2025 10:10 AM MONOMER RECOVERY OPERATOR Therapy Visit [facility] [address] [facility] [address] [place] [phone] [place] [address] [place] [address] 09/20/2025 10:10 AM MONOMER RECOVERY OPERATOR Therapy Visit [facility] [address] [facility] [address] [place] [phone] [place] [address] [facility] [address] [place] [address] documented as of this encounter Visit Diagnoses Not on filedocumented in this encounter Additional Health Concerns Assessment Noted Time PHQ-9 Depression Total Score: 3 05/05/20 24 12:58 PM CDT documented as of this encounter Care Teams Epic Professional Relationship Specialty Start Date End Date Clinic - [facility] [address]35 [place] [phone] PCP - General Clinic 08/19/23 08/02/25 Julieta Zelaya MD [address] [place] [phone] PCP - General Family Medicine 08/03/25 Misti Harrison MD [address] [place], [place] [address] [place], [place] [address] paper processing machine helper & Neurology - Child & Adolescent Psychiatry 11/29/19 Etta Ocampo MD [address] [id number] Assigned PCP 06/14/24 Rhina Osullivan MD [address] [address] Resident Family Medicine 05/24/25 Ashley Diaz, VICKI BATTERY FILLER [address] [place] [address] 450 [place], [place] [address] Nurse Practitioner Colon & Rectal 05/24/25 Delmy Hoffman PA-C 9 [place] [address] Assigned Surgical Provider 06/14/25 documented as of this encounter
--- OUTSIDE RECORDS SUMMARY | 2025-08-13 18:52 | XMS_ITS | Clinical Summary ---
Author Organization [place] Address [address] [place] [address] Care Team Providers Care Operating System Designer Name Role Phone Misti Harrison MD Unavailable Etta Ocampo MD Unavailable [phone] Rhina Osullivan MD Unavailable Unavailable Ashley Diaz APRN LIFE SKILLS INSTRUCTOR Unavaila ble Delmy Hoffman PA-C Unavailable [phone] Julieta Zelaya MD Primary Care Provider [phone] Allergies Active Allergy Reactions Criticality Noted Date Comments Seasonal Allergies 07/18/2025 Medications hydrOXYzine (ATARAX) 25 MG tabletIndicatio ns:Generalized anxiety disorder Take 12.5-25 mg by mouth up to three times a day for anxiety. 45 tablet 11/08/2022 Active FLUoxetine (PROZAC) 10 MG capsuleIndicati ons:Generalized anxiety disorder,Separa tion anxiety disorder TAKE 1 CAPSULE BY MOUTH DAILY WITH ONE 20 MG CAPSULE FOR A TOTAL DAILY DOSE OF 30 MG. 90 capsule 1 05/13/2023 Active FLUoxetine (PROZAC) 20 MG capsuleIndicati ons:Generalized anxiety disorder,Separa tion anxiety disorder TAKE 1 CAPSULE BY MOUTH DAILY WITH ONE 10 MG CAPSULE FOR TOTAL DAILY DOSE OF 30 MG. 90 capsule 1 05/13/2023 Active buPROPion (WELLBUTRIN XL) 150 MG 24 hr tabletIndicatio ns:Generalized anxiety disorder,Separa tion anxiety disorder TAKE 1 TABLET BY MOUTH EVERY MORNING 90 tablet 08/18/2023 Active polyethylene glycol (MIRALAX) 17 GM/Dose powderIndicatio ns:Rectal prolapse Take 17 g (1 Capful) by mouth daily. Start with 1 capful daily, can increase to 2 capfuls daily if needed 850 g 05/21/2025 Active methylcellulose (CITRUCEL) powderIndicatio ns:Obstructive defecation (H) Take 0.3 g (1.05 teaspoonful) by mouth 3 times daily as needed. Start with once daily and increase to three times daily as needed 454 g 5 07/18/2025 Active Active Problems Problem Noted Date Diagnosed Date Obstructive defecation 08/03/2025 Pelvic floor dysfunction in female 08/03/2025 Autism 02/07/2021 Separation anxiety disorder 02/09/2020 Vegetarian 07/29/2019 Rectal prolapse 01/04/2019 Popliteal fullness 03/17/2018 Fibroma of right foot 03/17/2018 Environmental allergies 09/03/2017 Resolved Problems Problem Noted Date Diagnosed Date Resolved Date Generalized anxiety disorder 02/09/2020 09/23/2021 Right knee pain, unspecified chronicity 05/11/2019 05/11/2019 Patellar instability of both knees 05/11/2019 05/11/2019 Gastroesophageal reflux dise ase without esophagitis 09/03/2017 03/05/2023 Anxiety 03/05/2017 09/23/2021 Slow transit constipation 03/05/2017 Encounters Date Type Department Care Team Description 08/03/2025 10:50 AM HEAT TREAT WORKER Therapy [facility] [address] [facility] [address] [place] [address] Lexus Huitron PT Pelvic floor dysfunction in female (Primary Dx); Obstructive defecation (H) 08/03/2025 Travel 07/18/2025 11:30 AM CDT Office [facility] [address] [address] Yaquelin Ag MD Obstructive defecation (H) (Primary Dx) 07/18/2025 Travel 07/18/2025 PRE VISIT [facility] [address] [address] Yaquelin Ag MD Previsit 07/07/2025 Telephone [facility] [address] [address] Yaquelin Ag MD Appointment (New patient ) 07/06/2025 Telephone [facility] [address] [phone] Yaquelin Ag MD Appointment (New patient ) 07/06/2025 Results Follow-Up [facility] [address] [phone] Delmy Hoffman PA-C Subj: Defecography results 07/06/2025 Orders Only [facility] [address] [phone] Delmy Hoffman PA-C Obstructive defecation (H) (Primary Dx) 07/04/2025 MyC Medical Advice [facility] [address] [phone] Delmy Hoffman PA-C 07/04/2025 Telephone [facility] [address] [phone] Delmy Hoffman PA-C Call Back; Results 06/30/2025 MyC Medical Advice [facility] [address] [place] [phone] Kaye Robb, ROUNDHOUSE SUPERVISOR 06/29/2025 2:30 PM CDT Ancillary Procedure [facility] [address] [place] [address] Delmy Hoffman PA-C Rectal prolapse 06/29/2025 Travel 06/16/2025 MyC Medical Advice [facility] [address] [place] [address] Kaye Robb, ROUNDHOUSE SUPERVISOR 06/07/2025 8:00 AM CDT Office [facility] [address] [phone] Rhina Osullivan MD Christensen, Kelsey, PA-C Rectal prolapse 06/07/2025 Travel 06/07/2025 PRE VISIT [facility] [address] [address] Delmy Hoffman PA-C Previsit 06/02/2025 Travel 05/24/2025 Telephone [facility] [address] [phone] None Referral (Rectal prolapse [K62.3]) 05/21/2025 2:35 PM CDT [facility] Visit [facility] [address] [address] Rhina Osullivan MD Rectal prolapse (Primary Dx) 05/21/2025 Travel from Last 3 Months Immunizations Immunization Administration Dates Next Due COVID-19 MONOVALENT 12+ (Pfizer) 09/21/2021 DTAP (<7y) 2005,2005,2005 DTAP-IPV, <7Y (QUADRACEL/KINRIX) 03/19/2010 DTaP/HepB/IPV 06/09/2006 HEPA 10/01/2006,03/18/2006 HIB (PRP-T) 06/09/2006 HPV 05/28/2016 HepB 2005,2005 Influenza Vaccine >6 months,quad, PF ,08/14/2020,07/14/2017,2009,08/21/2009,08/02/2008 Influenza vaccine ages 6-35 months 08/18/2007,,07/25/2006 MMR (MMRII) 03/19/2010 MMR/V (Proquad) 06/09/2006 Meningococcal ACWY (Menactra ) 03/17/2018 Meningococcal ACWY (Menveo ) 05/28/2016 Pneumococcal (PCV 7) 06/19/2006,03/18/20 06,2005,2004 Poliovirus, inactivated (IPV) 2005, 005 TDAP Vaccine (Boostrix) 05/28/2016 Varicella (Varivax) 03/19/2010 Family History Medical History Relation Comments Autism Spectrum Disorder Father Cerebrovascular Disease Father Depression Father No Known Problems Father Anxiety Disorder Maternal Grandmother Arthritis Maternal Grandmother Depression Maternal Grandmother Anxiety Disorder Mother Arthritis Mother Kidney Disease Mother No Known Problems Mother Autism Spectrum Disorder Paternal Grandfather Anxiety Disorder Paternal Grandmother Relation Status Comments Father Maternal Grandmother Mother Paternal Grandfather Paternal Grandmother Sister Alive Social History Tobacco Use Types Packs/Day Years [...] place to sleep or slept in a penitentiary (including now)? No 03/05/2023 Adolescent Education Answer Date Record ed Getting School Help Needed Not on file 06/13 Comments No Sex and Gender Information Value Date Recorded Sex Assigned at Female 04/09/2023 3:22 PM CDT Legal Sex Female 12:17 PM CDT Gender Identity Female 04/09/2023 3:22 PM CDT Sexual Orientation Bisexual 04/09/2023 3: 22 PM CDT Last Filed Vital Signs Vital Sign Reading Time Taken Comments Blood Pressure 112/71 07/18/2025 11:44 AM CDT Pulse 70 07/18/2025 11:44 AM CDT Temperature 36.9 C (98.5 F) 05/21/2025 2:40 PM CDT Respiratory Rate 20 05/21/2025 2:40 PM CDT Oxygen Saturation 98% 07/18/2025 11:44 AM CDT Inhaled Oxygen Concentration - - Weight 70.8 kg (156 lb 1.6 oz) 07/18/2025 11:44 AM CDT Height 168.9 cm (5' 6.5) 07/18/2025 11:44 AM CD T Body Mass Index 24.82 07/18/2025 11:44 AM CDT Plan of Treatment Upcoming Encounters Date Type Department Care Team (Late st Contact Info) Description 08/31/2025 12:40 PM HEAT TREAT WORKER Therapy Visit [facility] [id number] [place] [address] [place] [phone] [place] [address] [address] [place] [address] 09/06/2025 10:10 AM HEAT TREAT WORKER Therapy Visit [facility] [address] [place] [phone] [place] [address] [address] [place] [address] 09/20/2025 10:10 AM HEAT TREAT WORKER Therapy Visit [facility] [address] [place] [address] [place] [address] [place] [address] Health Maintenance Due Date Last Done Comments ADVANCE CARE PLANNING 2005 ANNUAL REVIEW OF HM ORDERS 2005 DEPRESSION ACTION PLAN 2005 HPV VACCINE (2 - 2-dose series) 11/25/2016 05/28/2016 HIV SCREENING 2020 MENINGITIS B VACCINE (1 of 2 - Standard) 2021 HEPATITIS C SCREENING 2023 PHQ-9 11/05/2024 05/05/2024, 02/20, 07/01/2022, Additional history exists COVID-19 VACCINE ( season) 2025 06/23/2024, 09/21/2021, 03/01/2021, Additional history exists INFLUENZA VACCINE (#1) 2025 , 09/21/2021, 08/14/2020, Additional history exists YEARLY PREVENTIVE VISIT 04/19/2026 04/19/20 25, 04/19/2025, 06/15/2024, Additional history exists DTAP/TDAP/TD VACCINE (7 - Td or Tdap) 05/28/2026 05/28/2016, 03/19/2010, 06/09/2006, Additional history exists ZOSTER VACCINE (1 of 2) 2055 HEPATITIS B VACCINE Completed 06/09/2006, 2005, 2005 PNEUMOCOCCAL VACCINE: PEDIATRICS (0 to 5 YEARS) AND AT-RISK PATIENTS (6 to 49 YEARS) Aged Out 06/19/2006, 03/18/2006, 2005, Additional history exists No longer eligible based on patient's age to complete this topic MENINGITIS VACCINE Aged Out 03/17/2018, 05/28/2016 No longer eligible based on patient's age to complete this topic Procedures Procedure Name Priority Date/Time Associated Diagnosis Comments LA ANOSCOPY W/WO BRUSH/WASH Routine 07/25/2025 7:57 PM HEAT TREAT WORKER Obstructive defecation (H) XR DEFECOGRAPHY Routine 06/29/2025 3:29 PM CDT Rectal prolapse LA ANOSCOPY W/WO BRUSH/WASH Routine 06/07/2025 9:35 AM CDT Rectal prolapse from Last 3 Months Results * XR Defecography (06/29/2025 3:29 PM [...] and I agree with the findings. JOLENE PAREDES MD Narrative 07/05/2025 11:31 AM CDT XR Defecogram INDICATION: Concern for rectal prolapse, obstructive defecation. FLUOROSCOPY TIME: Less than 3 minutes FINDINGS: Attending Physician AP radiograph of lower abdomen and pelvis [...] 4.6 cm in largest AP measurement Vaginal Cornish: Abnormal descent to 1.9 cm below PC line, from baseline of 1.7 cm above PC line. Extra rectal structures (if visible): 5 cm cul-de-sac hernia seen best in third defecogram series Other findings: None Procedure Note Jolene Paredes MD - 07/05/2025 XR Defecogram INDICATION: Concern for rectal prolapse, obstructive defecation. FLUOROSCOPY TIME: Less than 3 minutes FINDINGS: Attending Physician AP radiograph of lower abdomen and pelvis [...] 4.6 cm in largest AP measurement Vaginal Cornish: Abnormal descent to 1.9 cm below PC [...] and I agree with the findings. JOLENE PAREDES MD Delmy Hoffman PA-C IMG DIAGNOSTIC IMAGING O RDERABLES Final Result from Last 3 Months Insurance MEDICA IF BOLD MEDICA IFB BOLD Care Teams Operating System Designer Relationship Specialty Start Date End Date Julieta Zelaya MD [address] [place] [address] [phone] PCP - General Family Medicine 08/03/25 Misti Harrison MD [address] [place] [address] [id number] rehab director occupational therapist & Neurology - Child & Adolescent Psychiatry 11/29/19 Etta Ocampo MD [address] [phone] Assigned PCP 06/14/24 Rhina Osullivan MD [address] [address] Resident Family Medicine 05/24/25 Ashley Diaz, FUEL CELL ENGINEER LIFE SKILLS INSTRUCTOR [address] [place] [address] [address] [place] [address] Nurse Practitioner Colon & Rectal 05/24/25 Delmy Hoffman PA-C [address] [place], [place] [phone] Assigned Surgical Provider 06/14/25
--- OUTSIDE RECORDS SUMMARY | 2025-08-13 18:52 | XMS_ITS | Encounter Summary ---
Author Organization [place] Address [address] [place] [address]. [place] [address] Care Team Providers Care Adobe Maker Name Role Phone ArmanibrunoMisti valenzuela MD Unavailable [facility] Primary Ca re Provider Etta Ocampo MD Unavailable [phone] Rhina Osullivan MD Unavailable Unavailable Ashley Diaz APRN SOLDER DEPOSIT OPERATOR Unavaila ble Delmy Hoffman PA-C Unavailable [phone] Julieta Zelaya MD Primary Care Provider [phone] Encounter Details Date Type Department Care Team (Latest Contact Info) Description 07/06/2025 Results Follow-Up [facility] [address] [place] [address] Delmy Hoffman PA-C [address] [place] [address] Subj: Defecography results Social History Tobacco Use Types Packs/Day Years [...] place to sleep or slept in a custodial (including now)? No 03/05/2023 Adolescent Education Answer [...] st Contact Info) Description 08/31/2025 12:40 PM STILL PUMP OPERATOR Therapy Visit [facility] [address] [facility] [address] [place] [phone] Lexus Huitron, PT [address] [place] [address] [address] [place] [address] 09/06/2025 10:10 AM STILL PUMP OPERATOR Therapy Visit [facility] [address] [facility] [address] [place] [phone] [place] [address] [place] [address] 09/20/2025 10:10 AM STILL PUMP OPERATOR Therapy Visit [facility] [address] [facility] [address] [place] [phone] [place] [address] [place] [address] documented as of this encounter Visit Diagnoses Not on filedocumented in this encounter Additional Health Concerns Assessment Noted Time PHQ-9 Depression Total Score: 3 05/05/20 24 12:58 PM CDT documented as of this encounter Care Teams Adobe Maker Relationship Specialty Start Date End Date Clinic - [facility] [address]35 [place] [phone] PCP - General Clinic 08/19/23 08/02/25 Julieta Zelaya MD [address] [place] [address] [phone] PCP - General Family Medicine 08/03/25 Misti Harrison MD [address] [place] [address] 115264 door assembler & Neurology - Child & Adolescent Psychiatry 11/29/19 Etta Ocampo MD [address] [facility] [address] [facility] 100 [place], [place] [phone] Assigned PCP 06/14/24 Rhina Osullivan MD [address] [facility] 100 [place] [address] Resident Family Medicine 05/24/25 Ashley Diaz, RELIGIOUS EDUCATOR SOLDER DEPOSIT OPERATOR [address] [place] [address] Nurse Practitioner Colon & Rectal 05/24/25 Delmy Hoffman PA-C [address] [place] [address] Assigned Surgical Provider 06/14/25 documented as of this encounter
--- OUTSIDE RECORDS SUMMARY | 2025-08-13 18:52 | XMS_ITS | Encounter Summary ---
Author Organization [place] Address [address] [facility] [place] [address] Care Team Providers Care Director Case Name Role Phone Misti Harrison MD Unavailable [facility] Primary Ca re Provider Etta Ocampo MD Unavailable [phone] Rhina Osullivan MD Unavailable Unavailable Ashley Diaz APRN HAND TAPPER Unavaila ble Delmy Hoffman PA-C Unavailable [phone] Julieta Zelaya MD Primary Care Provider [phone] Encounter Details Date Type Department Care Team (Late st Contact Info) Description 06/30/2025 MyC Medical Advice [facility] [address] [place] [phone] Kaye Robb, RETAIL INTERIOR DESIGNER Social History Tobacco Use Types Packs/Day Years [...] st Contact Info) Description 08/31/2025 12:40 PM BILINGUAL TEACHER ASSISTANT Therapy Visit [facility] [address] [place] [address] [place] [phone] [place] [address] [place] [address] 09/06/2025 10:10 AM BILINGUAL TEACHER ASSISTANT Therapy Visit [facility] [address] [facility] [address] [place] [phone] [place] [address] [place] [address] 09/20/2025 10:10 AM BILINGUAL TEACHER ASSISTANT Therapy Visit [facility] [address] [facility] [address] [place] [phone] [place] [address] [facility] [address] [place] [address] documented as of this encounter Visit Diagnoses Not on filedocumented in this encounter Additional Health Concerns Assessment Noted Time PHQ-9 Depression Total Score: 3 05/05/20 24 12:58 PM CDT documented as of this encounter Care Teams Director Case Relationship Specialty Start Date End Date Clinic - [facility] [address] [place] [phone] PCP - General Clinic 08/19/23 08/02/25 Julieta Zelaya MD [address] [place] [address] [phone] PCP - General Family Medicine 08/03/25 Misti Harrison MD [address] [place], [place] [phone] [place], [place] 675034 frame feeder & Neurology - Child & Adolescent Psychiatry 11/29/19 Etta Ocampo MD [address] [phone] Assigned PCP 06/14/24 Rhina Osullivan MD [address] [address] Resident Family Medicine 05/24/25 Ashley Diaz, VICKI HAND TAPPER [address] [place] [address] 450 [place], [place] 084425 Nurse Practitioner Colon & Rectal 05/24/25 Delmy Hoffman PA-C [address] [place] [address] Assigned Surgical Provider 06/14/25 documented as of this encounter
--- OUTSIDE RECORDS SUMMARY | 2025-08-13 18:52 | XMS_ITS | Encounter Summary ---
Author Organization [place] Address [address] [place] [address] Care Team Providers Care Professor Of Biological Sciences Name Role Phone Misti Harrison MD Unavailable Misti Harrison MD Unavailable Rhianna Hess MD Unavailable Bell Little MD Primary Care Provid er Siddhartha Cardoso MD Unavailable [phone] Rhianna Hess MD Unavailable Bell Little MD Unavailable [phone] [facility] Primary Ca re Provider Barbi Guy MD Unavailable Etta Ocampo MD Unavailable [phone] Rhina Osullivan MD Unavailable Unavailable Ashley Diaz APRN INSURANCE FOLLOW UP REP Unavaila ble Delmy Hoffman PA-C Unavailable [phone] Julieta Zelaya MD Primary Care Provider [phone] Encounter Details Date Type Department Care Team (Late st Contact Info) Description 05/23/2022 MyC Medical Advice [facility] [address] [place] [phone] Bell Little MD [address] [place] [address] Social History Tobacco Use Types Packs/Day Years [...] st Contact Info) Description 08/31/2025 12:40 PM AUTOMOTIVE PARTS COUNTER ASSISTANT Therapy Visit [address] [place] [phone] [place] [address] [place] [address] 09/06/2025 10:10 AM AUTOMOTIVE PARTS COUNTER ASSISTANT Therapy Visit [address] [place] [phone] [place] [address] [address] [place] [address] 09/20/2025 10:10 AM AUTOMOTIVE PARTS COUNTER ASSISTANT Therapy Visit [address] [place] [phone] [place] [address] [address] [place] [address] documented as of this encounter Visit Diagnoses Not on filedocumented in this encounter Additional Health Concerns Assessment Noted Time PHQ-9 Depression Total Score: 0 11/14/19 8:41 AM AUTOMOTIVE PARTS COUNTER ASSISTANT documented as of this encounter Care Teams Professor Of Biological Sciences Relationship Specialty Start Date End Date Bell Little MD [address] [place] [address] PCP - General Pediatrics 04/11/21 08/18/23 Clinic - [place] [address] [place] [phone] PCP - General Clinic 08/19/23 08/02/25 Julieta Zelaya MD [address] [place] [address] [phone] PCP - General Family Medicine 08/03/25 Misti Harrison MD [address] 333[address] seaman & Neurology - Child & Adolescent Psychiatry 11/29/19 Misti Harrison MD [facility] [address] 738284 Assigned Behavioral Health Provider 07/14/20 04/12/24 Rhianna Hess MD [address] [place] [address] Assigned PCP 11/19/20 08/23/22 Siddhartha Cardoso MD [address]50 [facility] 505 [place], [place] 991014 Assigned Pediatric Specialist Provider 04/27/22 07/25/23 Rhianna Hess MD [address] [place] [address] Assigned PCP 08/24/22 05/09/23 Bell Little MD [facility] [address] [place], [place] [phone] Assigned PCP 05/10/23 10/15/23 Brabi Guy MD [address] [facility] [address] [place], [place] [address] Assigned PCP 10/16/23 06/13/24 Etta Ocampo MD [address] [place], [place] [phone] Assigned PCP 06/14/24 Rhina Osullivan MD [address] [place] [address] Resident Family Medicine 05/24/25 Ashley Diaz, BAR ROLLER INSURANCE FOLLOW UP REP [address] [facility] 450 [place] [address] Nurse Practitioner Colon & Rectal 05/24/25 Delmy Hoffman PA-C [address] [facility] [place] [address] Assigned Surgical Provider 06/14/25 documented as of this encounter
--- OUTSIDE RECORDS SUMMARY | 2025-08-13 18:52 | XMS_ITS | Encounter Summary ---
Author Organization [facility] Address [address] [place] [address]. [place] [address] Care Team Providers Care Commutator Assembler Name Role Phone Misti Harrison MD Unavailable [facility] Primary Ca re Provider Etta Ocampo MD Unavailable [phone] Rhina Osullivan MD Unavailable Unavailable Ashley Diaz APRN ROD FILLER Unavaila ble Delmy Hoffman PA-C Unavailable [phone] Reason for Visit * Reason Onset Date Comments Previsit 07/18/2025 Encounter Details Date Type Department Care Team (Late st Contact Info) Description 07/18/2025 PRE VISIT [facility] [place] [address] [facility] [address] [place] [address] Yaquelin Ag MD [address] [place] [address] Previsit Social History Tobacco Use Types Packs/Day Years [...] place to sleep or slept in a half-way (including now)? No 03/05/2023 Adolescent Education Answer [...] encounter Miscellaneous Notes * Telephone Encounter - Ashley Srivastava - 07/12/2025 9:47 AM CDT Diagnosis, Referred by & from: Rectal prolapse and referred by Dr. Rhina Osullivan, per patient's mom - Mary. Records in [facility], per patient. (No pelvic floor testing, per patient.) Appt date: 07/18/25 NOTES STATUS DETAILS OFFICE NOTE from referring provider Internal 05/21/25 - OV OFFICE NOTE from other specialist Internal [facility]: 01/21/22, 01/04/19 - OV Siddhartha Cardoso MD 08/14/20, 07/29/19, 12/23/18 - Bell Grover MD MEDICATION LIST Internal IMAGING (DISC & REPORT) XRAY Internal [facility]: 06/29/25 - xr defecography documented in this encounter Plan of Treatment Upcoming Encounters Date Type Department Care Team (Late st Contact Info) Description 08/31/2025 12:40 PM MORTGAGE PROCESSING MANAGER Therapy Visit [facility] [address] [facility] [address] [place] [phone] [place] [address] [place], [place] [address] 09/06/2025 10:10 AM MORTGAGE PROCESSING MANAGER Therapy Visit [facility] [address] [facility] [address] [place] [phone] [place] [address] [place], [place] [phone] 09/20/2025 10:10 AM MORTGAGE PROCESSING MANAGER Therapy Visit [facility] [address] [facility] [address] [place] [phone] [place] [address] [place], [place] 47[address] documented as of this encounter Visit Diagnoses Not on filedocumented in this encounter Additional Health Concerns Assessment Noted Time PHQ-9 Depression Total Score: 3 05/05/20 24 12:58 PM CDT documented as of this encounter Care Teams Commutator Assembler Relationship Specialty Start Date End Date Clinic - [facility] [address] [place] [phone] PCP - General Clinic 08/19/23 08/02/25 Misti Harrison MD [address] [place] [address] granulating machine operator & Neurology - Child & Adolescent Psychiatry 11/29/19 Etta Ocampo MD [address] [address] Assigned PCP 06/14/24 Rhina Osullivan MD [address] [place] [address] Resident Family Medicine 05/24/25 Ashley Diaz, VICKI ROD FILLER [address] [place] [address] 450 [place], [place] 5[address]35 Nurse Practitioner Colon & Rectal 05/24/25 Delmy Hoffman PA-C [address]09 [place], [place] [address] Assigned Surgical Provider 06/14/25 documented as of this encounter
--- OUTSIDE RECORDS SUMMARY | 2025-08-13 18:53 | XMS_ITS | Encounter Summary ---
Author Organization [place] Address [address] [place] [address]. [place] [address] Care Team Providers Care Central Office Equipment Installer Name Role Phone Misti Harrison MD Unavailable [facility] Primary Ca re Provider Etta Ocampo MD Unavailable [phone] Rhina Osullivan MD Unavailable Unavailable Ashley Diaz APRN FACEPIECE LINE SUPERVISOR Unavaila ble Delmy Hoffman PA-C Unavailable [phone] Julieta Zelaya MD Primary Care Provider [phone] Reason for Visit * Reason Onset Date Comments Referral 05/24/2025 Rectal prolapse [K62.3] Encounter Details Date Type Department Care Team (Late st Contact Info) Description 05/24/2025 [facility] [address] [place] [address] None Referral (Rectal prolapse [K62.3]) Social History Tobacco Use Types Packs/Day Years [...] place to sleep or slept in a retirement (including now)? No 03/05/2023 Adolescent Education Answer [...] encounter Miscellaneous Notes * Telephone Encounter - Tao Daniel - 05/24/2025 11:54 AM CDT [facility] Phone Message May a detailed message be left on voicemail: no Reason for Call: Appointment Intake Referring Provider Name: Rhina Osullivan MD Diagnosis and/or Symptoms: Received referral for Rectal prolapse [K62.3]. Sending high priority message for review per protocols. Action Taken: Message routed to: [facility] Travel Screening: Not Applicable documented in this encounter Plan of Treatment Upcoming Encounters Date Type Department Care Team (Late st Contact Info) Description 08/31/2025 12:40 PM ARC CUTTER PLASMA ARC [facility] [address] [place] [address] [address] [place] [phone] [place] [address] [place] [address] 09/06/2025 10:10 AM ARC CUTTER PLASMA ARC Therapy Visit [address] [place] [phone] [place] [address] [place], [place] [phone] 09/20/2025 10:10 AM ARC CUTTER PLASMA ARC Therapy Visit [address] [phone] [place] [address] [place] [address] documented as of this encounter Visit Diagnoses Not on filedocumented in this encounter Additional Health Concerns Assessment Noted Time PHQ-9 Depression Total Score: 3 05/05/20 24 12:58 PM CDT documented as of this encounter Care Teams Central Office Equipment Installer Relationship Specialty Start Date End Date Clinic - [facility] 2535 [place] [phone] PCP - General Clinic 08/19/23 08/02/25 Julieta Zelaya MD 1687 [place], [place] [phone] PCP - General Family Medicine 08/03/25 Misti Harrison MD [address] [place], [place] [phone] [place] [address] rn new grad & Neurology - Child & Adolescent Psychiatry 11/29/19 Etta Ocampo MD [address] [id number] Assigned PCP 06/14/24 Rhina Osullivan MD [address] [address] Resident Family Medicine 05/24/25 Ashley Diaz, VICKI FACEPIECE LINE SUPERVISOR [address] [place] [address] 450 [place], [place] [address] Nurse Practitioner Colon & Rectal 05/24/25 Delmy Hoffman PA-C 909 [place], [place] 4[address] Assigned Surgical Provider 06/14/25 documented as of this encounter
--- OUTSIDE RECORDS SUMMARY | 2025-08-13 18:53 | XMS_ITS | Encounter Summary ---
Author Organization [place] Address [address] [place] [address] Care Team Providers Care Gem Setter Name Role Phone Misti Harrison MD Unavailable Misti Harrison MD Unavailable Rhianna Hess MD Unavailable Bell Little MD Primary Care Provid er Siddhartha Cardoso MD Unavailable [phone] Rhianna Hess MD Unavailable Bell Little MD Unavailable [phone] [facility] re Provider Barbi Guy MD Unavailable Etta Ocampo MD Unavailable [phone] Rhina Osullvian MD Unavailable Unavailable Ashley Diaz APRN SPRING MANUFACTURING SET UP TECHNICIAN Unavaila ble Delmy Hoffman PA-C Unavailable [phone] Julieta Zelaya MD Primary Care Provider [phone]- [phone] Reason for Visit * Reason Comments Medication Refill Encounter Details Date Type Department Care Team (Late st Contact Info) Description 08/13/2022 Refill [facility] 2024 [place] [address] Misti Harrison MD [address] [facility] [address] [place] [address] Medication Refill Social History Tobacco Use Types Packs/Day Years Used Date Smoking Tobacco: Never Smokeless Tobacco: Never Alcohol Use Standard Drinks/Week Comments No 0 (1 standard drink = 0.6 oz pur e alcohol) PHQ-2 Answer Date Recorded PHQ-2 Score 2 07/01/2022 Comments No Sex and Gender Information Value Date Recorded Sex Assigned at Female 04/09/2023 3:22 PM CDT Legal Sex Female 12:17 PM CDT Gender Identity Female 04/09/2023 3:22 PM CDT Sexual Orientation Bisexual 04/09/2023 3: 22 PM CDT documented as of this encounter Plan of Treatment Upcoming Encounters Date Type Department Care Team (Late st Contact Info) Description 08/31/2025 12:40 PM IT PROGRAMMER ANALYST Therapy Visit [address] [place] [phone] [place] [address] [place] [address] 09/06/2025 10:10 AM IT PROGRAMMER ANALYST Therapy Visit [address] [place] [phone] [place] [address] [place] [address] 09/20/2025 10:10 AM IT PROGRAMMER ANALYST Therapy Visit [address] [place] [phone] [place] [address] [place] [address] documented as of this encounter Visit Diagnoses Diagnosis Generalized anxiety disorder Separation anxiety disorder documented in this encounter Additional Health Concerns Assessment Noted Time PHQ-9 Depression Total Score: 14 022 11:32 AM CDT documented as of this encounter Care Teams Gem Setter Relationship Specialty Start Date End Date Bell Little MD 2024 [place] [address] PCP - General Pediatrics 04/11/21 08/18/[address] [phone] PCP - General Clinic 08/19/23 08/02/25 Julieta Zelaya MD [address] [place] [phone] PCP - General Family Medicine 08/03/25 [place] [address] [place] [address] industrial maintenance repairer & Neurology - Child & Adolescent Psychiatry 11/29/19 Misti Harrison MD [address] [place] [address] Assigned Behavioral Health Provider 07/14/20 04/12/24 Rhianna Hess MD 2024 [place] [address] Assigned PCP 11/19/20 08/23/22 Siddhartha Cardoso MD [address] [place] [address] 505 [place] [address] Assigned Pediatric Specialist Provider 04/27/22 07/25/23 Rhianna Hess MD [address] [place] [address] Assigned PCP 08/24/22 05/09/23 Bell Little MD 1021 [facility] [address] [place] [address] Assigned PCP 05/10/23 10/15/23 Barbi Guy MD 717 [facility] [address] [place] [address] Assigned PCP 10/16/23 06/13/24 Etta Ocampo MD [address] [place], [place] [phone] Assigned PCP 06/14/24 Rhina Osullivan MD [address] [facility] 100 [place] [address] Resident Family Medicine 05/24/25 Ashley Diaz, SHIP BOAT OR BARGE MATE SPRING MANUFACTURING SET UP TECHNICIAN 420 [facility] M[facility] 450 [place] [address] Nurse Practitioner Colon & Rectal 05/24/25 Delmy Hoffman PA-C 909 [place], [place] 7[address]25 Assigned Surgical Provider 06/14/25 documented as of this encounter
--- OUTSIDE RECORDS SUMMARY | 2025-08-13 18:53 | XMS_ITS | Encounter Summary ---
Author Organization [facility] Address [address] [place] [address] Care Team Providers Care Heater Operator Helper Name Role Phone Misti Harrison MD Unavailable Etta Ocampo MD Unavailable [phone] Rhina Osullivan MD Unavailable Unavailable Ashley Diaz APRN CRUDE OIL TREATER Unavaila ble Delmy Hoffman PA-C Unavailable [phone] Julieta Zelaya MD Primary Care Provider [phone] Encounter Details Date Type Department Care Team (Latest Contact Info) Description 08/03/2025 Travel Social History Tobacco Use Types Packs/Day [...] place to sleep or slept in a fci (including now)? No 03/05/2023 Adolescent Education Answer [...] st Contact Info) Description 08/31/2025 12:40 PM MANAGER PRODUCT Therapy Visit [address] [place] [phone] [place] [address] [address] [place] [address] 09/06/2025 10:10 AM MANAGER PRODUCT Therapy Visit [address] [facility] [address] [place] [phone] [place] [address] [address] [place] [address] 09/20/2025 10:10 AM MANAGER PRODUCT Therapy Visit [address] [facility] [address] [place] [phone] [place] [address] [address] [place] [address] documented as of this encounter Visit Diagnoses Not on filedocumented in this encounter Additional Health Concerns Assessment Noted Time PHQ-9 Depression Total Score: 3 05/05/20 24 12:58 PM CDT documented as of this encounter Care Teams Heater Operator Helper Relationship Specialty Start [place] [address] [place] [address] PCP - General Family Medicine 08/03/25 Misti Harrison MD [address] [facility] [address] [place], [place] [address] web marketing intern & Neurology - Child & Adolescent Psychiatry 11/29/19 tEta Ocampo MD 1099 [facility] [address] [place], [place] [phone] Assigned PCP 06/14/24 Rhina Osullivan MD [address] [place] [address] Resident Family Medicine 05/24/25 Ashley Diaz, VICKI CRUDE OIL TREATER 420 [facility] 450 [place] [address] Nurse Practitioner Colon & Rectal 05/24/25 Delmy Hoffman PA-C 909 [facility] [place], [place] 27[address] Assigned Surgical Provider 06/14/25 documented as of this encounter
--- OUTSIDE RECORDS SUMMARY | 2025-08-13 18:53 | XMS_ITS | Encounter Summary ---
Author Organization [facility] Address [address] [place] [address] Care Team Providers Care Production Support Consultant Name Role Phone Bell Little MD Primary Care Provid er Bell Little MD Unavailable [phone] Misti Harrison MD Unavailable Venkatesh Valenzuela NP Unavailable [phone] Ashley Lopez MD Unavailable [phone] Misti Harrison MD Unavailable Ashley Lopez MD Unavailable [phone] Rhianna Hess MD Unavailable Lisa Singh DO Primary Care Provider [phone] Bell Little MD Primary Care Provid er Siddhartha Cardoso MD Unavailable [phone] Rhianna Hess MD Unavailable Bell Little MD Unavailable [phone] [facility] Provider Barbi Guy MD Unavailable Etta Ocampo MD Unavailable [phone] Rhina Osullivan MD Unavailable Unavailable Ashley Diaz APRN LOOP MACHINE OPERATOR Unavaila ble Delmy Hoffman PA-C Unavailable [phone] Julieta Zelaya MD Primary Care Provider [phone] Encounter Details Date Type Department Care Team (Late st Contact Info) Description 04/17/2020 MyC Medical Advice [facility] [place] [id number] [address] [address] Misti Harrison MD [facility] [address] [address] Social History Tobacco Use Types Packs/Day Years Used Date Smoking Tobacco: Never Smokeless Tobacco: Never Alcohol Use Standard Drinks/Week Comments No 0 (1 standard drink = 0.6 oz pur e alcohol) PHQ-2 Answer Date Recorded PHQ-2 Score 2 11/17/2019 Comments No Sex and Gender Information Value Date Recorded Sex Assigned at Female 04/09/2023 3:22 PM CDT Legal Sex Female 12:17 PM CDT Gender Identity Female 04/09/2023 3:22 PM CDT Sexual Orientation Bisexual 04/09/2023 3: 22 PM CDT documented as of this encounter Plan of Treatment Upcoming Encounters Date Type Department Care Team (Late Contact Info) Description 08/31/2025 12:40 PM MEDICAL CLAIMS EXAMINER Therapy Visit [facility] [address] [facility] 300 [place] [phone] [place] [address] [facility] [place] 300 [place], [place] [phone] 09/06/2025 10:10 AM MEDICAL CLAIMS EXAMINER Therapy Visit [facility] [address] [facility] [address] [place] [address] [place] [address] [place] [address] 09/20/2025 10:10 AM MEDICAL CLAIMS EXAMINER Therapy Visit [facility] [address] [facility] [address] [place] [phone] [place] [address] [place] [address] documented as of this encounter Visit Diagnoses Not on filedocumented in this encounter Additional Health Concerns Assessment Noted Time PHQ-9 Depression Total Score: 5 11/17/19 20 8:44 AM MEDICAL CLAIMS EXAMINER documented as of this encounter Care Teams Production Support Consultant Relationship Specialty Start Date End Date Bell Little MD PCP - General Pediatrics 07/11/17 12/11/20 Lisa Singh DO 2024 [place] [address] PCP - General 12/12/20 04/10/21 Bell Little MD PCP - General Pediatrics 04/11/21 08/18/23 Clinic - [facility] [address] [place] [phone] PCP - General Clinic 08/19/23 08/02/25 Julieta Zelaya MD 1687 [place] [address] PCP - General Family Medicine 08/03/25 Bell Little MD 1021 [facility] [address] [place] [address] Assigned PCP 11/10/16 11/18/20 Misti Harrison MD [address] [place] [address] accountancy professor & Neurology - Child & Adolescent Psychiatry 11/29/19 Venkatesh Valenzuela, GAS LOAD DISPATCHER [address] [facility] [place] [address] Assigned Pediatric Specialist Provider 07/14/20 11/18/20 Ashley Lopez MD [address] [place] [address] Assigned Musculoskeletal Provider 07/14/20 11/11/20 Misti Harrison MD [address] [place] [address] Assigned Behavioral Health Provider 07/14/20 04/12/24 Ashley Lopez MD [address] [place] [address] Assigned Musculoskeletal Provider 11/19/20 05/17/22 Rhianna Hess MD [address] [place], [place] [address] Assigned PCP 11/19/20 08/23/22 Siddhartha Cardoso MD [address] [place] [address] [place], [place] [address]28[address] Assigned Pediatric Specialist Provider 04/27/22 07/25/23 Rhianna Hess MD [address] [place] [address] Assigned PCP 08/24/22 05/09/23 Bell Little MD [address] [place], [place] [phone] Assigned PCP 05/10/23 10/15/23 Barbi Guy MD 717 [facility] [address] [place], [place] [address] Assigned PCP 10/16/23 06/13/24 Etta Ocampo MD [address] [place], [place] [phone] Assigned PCP 06/14/24 Rhina Osullivan MD [address] [place] [address] Resident Family Medicine 05/24/25 Ashley Diaz, VICKI LOOP MACHINE OPERATOR 420 [facility] 450 [place] [address] Nurse Practitioner Colon & Rectal 05/24/25 Delmy Hoffman PA-C 909 [facility] [place] [address] Assigned Surgical Provider 06/14/25 documented as of this encounter
--- OUTSIDE RECORDS SUMMARY | 2025-08-13 18:53 | XMS_ITS | Encounter Summary ---
Author Organization [facility] [place] Address [address] [place] [address] Care Team Providers Care Motor Coach Chauffeur Name Role Phone Misti Harrison MD Unavailable Misti Harrison MD Unavailable Bell Little MD Primary Care Provid er Siddhartha Cardoso MD Unavailable [phone] Rhianna Hess MD Unavailable Bell Little MD Unavailable + [phone] [facility] [place] Ca re Provider Barbi Guy MD Unavailable Etta Ocampo MD Unavailable [phone] Rhina Osullivan MD Unavailable Unavailable Ashley Diaz APRN CHILD WELFARE CASEWORKER Unavaila ble Delmy Hoffman PA-C Unavailable [phone] Julieta Zelaya MD Primary Care Provider [phone]- [phone] Encounter Details Date Type Department Care Team (Late st Contact Info) Description 12/18/2022 [facility] Medical Advice [facility] 2024 [place] [phone] Misti Harrison MD [address] [place], [place] [phone] [place] [address] Social History Tobacco Use Types Packs/Day Years [...] st Contact Info) Description 08/31/2025 12:40 PM PURCHASER Therapy Visit [address] [place] [phone] [place] [address] [place] [address] 09/06/2025 10:10 AM PURCHASER Therapy Visit [address] [place] [phone] [place] [address] [place] [address] 09/20/2025 10:10 AM PURCHASER Therapy Visit [address] [place] [phone] [place] [address] [place] [address] documented as of this encounter Visit Diagnoses Not on filedocumented in this encounter Additional Health Concerns Assessment Noted Time PHQ-9 Depression Total Score: 14 022 11:32 AM CDT documented as of this encounter Care Teams Motor Coach Chauffeur Relationship Specialty Start Date End Date Bell Little MD [address] [place] [address] PCP - General Pediatrics 04/11/21 08/18/23 Clinic - [address] [phone] PCP - General Clinic 08/19/23 08/02/25 Julieta Zelaya MD [address] [place] [address] PCP - General Family Medicine 08/03/25 Misti Harrison MD [address] [place] [address] tie binder & Neurology - Child & Adolescent Psychiatry 11/29/19 Misti Harrison MD [address] [place] [address] Assigned Behavioral Health Provider 07/14/20 04/12/24 Siddhartha Cardoso MD 2450 [facility] 505 [place] [address] Assigned Pediatric Specialist Provider 04/27/22 07/25/23 Rhianna Hess MD [address] [place] [address] Assigned PCP 08/24/22 05/09/23 Bell Little MD [address] [place] [address] Assigned PCP 05/10/23 10/15/23 Barbi Guy MD 717 [facility] [address] [place], [place] [address] Assigned PCP 10/16/23 06/13/24 Etta Ocampo MD [address] [place], [place] [phone] Assigned PCP 06/14/24 Rhina Osullivan MD [address] [facility] 100 [place] [address] Resident Family Medicine 05/24/25 Ashley Diaz, COMPRESSOR MECHANIC CHILD WELFARE CASEWORKER 420 [facility] 450 [place] [address] Nurse Practitioner Colon & Rectal 05/24/25 Delmy Hoffman PA-C 909 [place] [address] Assigned Surgical Provider 06/14/25 documented as of this encounter
--- OUTSIDE RECORDS SUMMARY | 2025-08-13 18:53 | XMS_ITS | Encounter Summary ---
Author Organization [place] Address [address] [place] [address] Care Team Providers Care Inspector General Name Role Phone Misti Harrison MD Unavailable Misti Harrison MD Unavailable Ashley Lopez MD Unavailable [phone] Rhianna Hess MD Unavailable Lisa Singh DO Primary Care Provider [phone] Bell Little MD Primary Care Provid er Siddhartha Cardoso MD Unavailable [phone] Rhianna Hess MD Unavailable Bell Little MD Unavailable + [phone] [facility] Primary Id re Provider Barbi Guy MD Unavailable Etta Ocampo MD Unavailable [phone] Rhina Osullivan MD Unavailable Unavailable Ashley Diaz APRN V BELT FINISHER Unavaila ble Delmy Hoffman PA-C Unavailable [phone] Julieta Zelaya MD Primary Care Provider [phone] Encounter Details Date Type Department Care Team (Late Contact Info) Description 02/06/2021 MyC Medical Advice [facility] [address] 1[address] Floor, [address] [place] [address] Misti Harrison MD [address] [place] [address] [address]275 [place] [address] Social History Tobacco Use Types Packs/Day Years Used Date Smoking Tobacco: Never Smokeless Tobacco: Never Alcohol Use Standard Drinks/Week Comments No 0 (1 standard drink = 0.6 oz pur e alcohol) PHQ-2 Answer Date Recorded PHQ-2 Score 0 11/14/2020 Comments No Sex and Gender Information Value [...] have Coronavirus / COVID-19? No / Unsure 01/11/2021 9:16 AM CDT documented as of this encounter Plan of Treatment Upcoming Encounters Date Type Department Care Team (Late Contact Info) Description 08/31/2025 12:40 PM IMMIGRATION ASSOCIATE Therapy Visit [facility] [address] [facility] [address] [place] [phone] [place] [address] [place], [place] [address] 09/06/2025 10:10 AM IMMIGRATION ASSOCIATE Therapy Visit [facility] [address] [facility] [address] [place] [phone] [place] [address] [place], [place] [phone] 09/20/2025 10:10 AM IMMIGRATION ASSOCIATE Therapy Visit [facility] [address] [facility] [address] [place] [phone] [place] [address] [facility] [address] [place] [address] documented as of this encounter Visit Diagnoses Not on filedocumented in this encounter Additional Health Concerns Assessment Noted Time PHQ-9 Depression Total Score: 0 11/14/19 8:41 AM IMMIGRATION ASSOCIATE documented as of this encounter Care Teams Inspector General Relationship Specialty Start Date End Date Lisa Singh DO 2024 [place] [address] PCP - General 12/12/20 04/10/21 Bell Little MD 2024 [place] [address] PCP - General Pediatrics 04/11/21 08/18/23 Clinic - [facility] 2535 [place] [phone] PCP - General Clinic 08/19/23 08/02/25 Julieta eZlaya MD 1687 [place] [address] PCP - General Family Medicine 08/03/25 Misti Harrison MD [address] [place], [place] [address] [place] [address] egg processor & Neurology - Child & Adolescent Psychiatry 11/29/19 Misti Harrison MD [address] [facility] [address] [place] [address] Assigned Behavioral Health Provider 07/14/20 04/12/24 Ashley Lopez MD 909 [place] [address] Assigned Musculoskeletal Provider 11/19/20 05/17/22 Rhianna Hess MD [address] [place] [address] Assigned PCP 11/19/20 08/23/22 Siddhartha Cardoso MD 2450 [facility] 505 [place] [address] Assigned Pediatric Specialist Provider 04/27/22 07/25/23 Rhianna Hess MD 2025 [place] [address] Assigned PCP 08/24/22 05/09/23 Bell Little MD 1021 [facility] E [facility] 100 [place] [address] Assigned PCP 05/10/23 10/15/23 Barbi Guy MD 717 [facility] 370 [place] [address] Assigned PCP 10/16/23 06/13/24 Etta Ocampo MD 1099 [facility] 100 [place] [address] Assigned PCP 06/14/24 Rhina Osullivan MD [address] 100 [place] [address] Resident Family Medicine 05/24/25 Ashley Diaz APRN V BELT FINISHER [address] [place] [address] 450 [place] [address] Nurse Practitioner Colon & Rectal 05/24/25 Delmy Hoffman PA-C [address] [place] [address] Assigned Surgical Provider 06/14/25 documented as of this encounter
--- OUTSIDE RECORDS SUMMARY | 2025-08-13 18:53 | XMS_ITS | Encounter Summary ---
Author Organization [place] Address [address] [place] [address] Care Team Providers Care Director Check Name Role Phone Misti Harrison MD Unavailable Misti Harrison MD Unavailable Ashley Lopez MD Unavailable [phone] Rhianna Hess MD Unavailable Lisa Singh DO Primary Care Provider [phone] Bell Little MD Primary Care Provid er Siddhartha Cardoso MD Unavailable [phone] Rhianna Hess MD Unavailable Bell Little MD Unavailable + [phone] [facility] Primary Ny re Provider Barbi Guy MD Unavailable Etta Ocampo MD Unavailable [phone] Rhina Osullivan MD Unavailable Unavailable Ashley Diaz APRN COLLECTION SYSTEMS TECHNICIAN Unavaila ble Delmy Hoffman PA-C Unavailable [phone] Julieta Zelaya MD Primary Care Provider [phone] Encounter Details Date Type Department Care Team (Late st Contact Info) Description 04/09/[address] [facility] Pediatric Specialty Clinic [facility] [address] 1[address] Floor, [address] [place] [phone] Misti Harrison MD [address] [place] [address] [address] [place] [address] Generalized anxiety disorder; Separation anxiety disorder Social History Tobacco Use Types Packs/Day Years [...] 3:22 PM CDT Sexual Orientation Bisexual 04/09/2023 3 :22 PM CDT documented as of this encounter Plan of Treatment Upcoming Encounters Date Type Department Care Team (Late st Contact Info) Description 08/31/2025 12:40 PM BACTERIOLOGIST FOOD Therapy Visit [address] [place] [phone] [place] [address] [place] [address] 09/06/2025 10:10 AM BACTERIOLOGIST FOOD Therapy Visit [address] [place] [phone] [place] [address] [place] [address] 09/20/2025 10:10 AM BACTERIOLOGIST FOOD Therapy Visit [address] 300 [place] [phone] [place] [address] [facility] 300 [place], [place] [address] documented as of this encounter Visit Diagnoses Diagnosis Generalized anxiety disorder Separation anxiety disorder documented in this encounter Additional Health Concerns Assessment Noted Time PHQ-9 Depression Total Score: 0 11/14/19 8:41 AM BACTERIOLOGIST FOOD documented as of this encounter Care Teams Director Check Relationship Specialty Start Date End Date Lisa Singh DO [address] [place] [place], [place] [address] PCP - General 12/12/20 04/10/21 Bell Little MD [address] [place] [place], [place] [address]184 PCP - General Pediatrics 04/11/21 08/18/23 Clinic - [place] [address] [place] [phone] PCP - General Clinic 08/19/23 08/02/25 Julieta Zelaya MD 1687 [place], [place] [phone] PCP - General Family Medicine 08/03/25 Misti Harrison MD [address] [facility] [address] [place], [place] [phone] pacs specialist & Neurology - Child & Adolescent Psychiatry 11/29/19 Misti Harrison MD [address] [facility] [address] [place], [place] [phone] Assigned Behavioral Health Provider 07/14/20 04/12/24 Ashley Lopez MD 909 [place] [address] Assigned Musculoskeletal Provider 11/19/20 05/17/22 Rhianna Hess MD 2025 [place] [address] Assigned PCP 11/19/20 08/23/22 Siddhartha Cardoso MD 2450 [facility] 505 [place], [place] [address] Assigned Pediatric Specialist Provider 04/27/22 07/25/23 Rhianna Hess MD 2024 [place] [address] Assigned PCP 08/24/22 05/09/23 Bell Little MD 1021 [facility] 100 [place] [address] Assigned PCP 05/10/23 10/15/23 Barbi Guy MD 717 [facility] 370 [place] [address] Assigned PCP 10/16/23 06/13/24 Etta Ocampo MD [address] [facility] [address] [facility] 100 [place], [place] [id number] Assigned PCP 06/14/24 Rhina [place] MD 10[address] [facility] 100 [place] [address] Resident Family Medicine 05/24/25 Ashley Diaz, FORM SETTER [employer] COLLECTION SYSTEMS TECHNICIAN 420 [facility] 450 [place], [place] [address] Nurse Practitioner Colon & Rectal 05/24/25 Delmy Hoffman PA-C 909 [place], [place] [address] Assigned Surgical Provider 06/14/25 documented as of this encounter
--- OUTSIDE RECORDS SUMMARY | 2025-08-13 18:53 | XMS_ITS | Encounter Summary ---
Author Organization [place] Address [address] [place] [address] Care Team Providers Care Sharepoint Admin Name Role Phone Misti Harrison MD Unavailable Misti Harrison MD Unavailable Rhianna Hess MD Unavailable Bell Little MD Primary Care Provid er Siddhartha Cardoso MD Unavailable [phone] Rhianna Hess MD Unavailable Bell Little MD Unavailable [phone] [facility] Primary Ca re Provider Barbi Guy MD Unavailable Etta Ocampo MD Unavailable [phone] Rhina [place] MD Unavailable Unavailable Ashley Diaz APRN MAJOR APPLIANCE ASSEMBLY SUPERVISOR Unavaila ble Delmy Hoffman PA-C Unavailable [phone] Julieta Zelaya MD Primary Care Provider [phone] Encounter Details Date Type Department Care Team (Late st Contact Info) Description 08/13/2022 MyC Medical Advice [facility] 2024 [place] [address] Misti Harrison MD [address] [facility] [address] [place] [address] Social History Tobacco Use Types Packs/Day Years [...] encounter Miscellaneous Notes * Telephone Encounter - Yris Braxton RN - 08/13/2022 3:[address] Somewhat unclear dispense history as provided by pharmacy staff today (08/13/22) given the staggered pickups of the 10mg and 20mg strength capsules. Additionally, older prescriptions were used out oforder from newer prescriptions, though in general, it does appear that the patient has been consistently taking at least 20mg of fluoxetine daily for the last year. Limited dispense history obtained from pharmacy: 03/23 Fluoxetine 20mg #90 06/11 fluoxetine 20mg #30 06/11 fluoxetine 10mg #30 07/26 fluoxetine 20mg #[address] documented in this encounter Plan of Treatment Upcoming Encounters Date Type Department Care Team (Late st Contact Info) Description 08/31/2025 12:[address] Therapy Visit [facility] Specialty [place] [address] [facility] [address] [place] [phone] [place] [address] [facility] 300 [place] [address] 09/06/2025 10:[address] Therapy Visit [facility] [address] [facility] [address] [place] [phone] [place] [address] [place] [address] 09/20/2025 10:[address] Therapy Visit [facility] [address] [facility] [address] [place] [phone] [place] [address] [place], [place] [phone] documented as of this encounter Visit Diagnoses Not on filedocumented in this encounter Additional Health Concerns Assessment Noted Time PHQ-9 Depression Total Score: 14 022 11:32 AM CDT documented as of this encounter Care Teams Sharepoint Admin Relationship Specialty Start Date End Date Bell Little MD [address] [place], [place] [address] PCP - General Pediatrics 04/11/21 08/18/23 Clinic - [facility] 2535 [place] [phone] PCP - General Clinic 08/19/23 08/02/25 Julieta Zelaya MD 1687 [place] [address] PCP - General Family Medicine 08/03/25 Misti Harrison MD [address] [place] [address] [address] [place] [address] color control supervisor & Neurology - Child & Adolescent Psychiatry 11/29/19 Misti Harrison MD [address] [facility] [address] [place] [address] Assigned Behavioral Health Provider 07/14/20 04/12/24 Rhianna Hess MD [address] [place] [address] Assigned PCP 11/19/20 08/23/22 Siddhartha Cardoso MD [address] [facility] 505 [place], [place] [address] Assigned Pediatric Specialist Provider 04/27/22 07/25/23 Rhianna Hess MD 20[address] [place] [address] Assigned PCP 08/24/22 05/09/23 Bell Little MD 1021 [facility] 100 [place] [address] Assigned PCP 05/10/23 10/15/23 Barbi Guy MD 717 [facility] 370 [place], [place] [address] Assigned PCP 10/16/23 06/13/24 Etta Ocampo MD [address] [facility] [address] [facility] 100 [place], [place] [id number] Assigned PCP 06/14/24 Rhina [place] MD 1099 [facility] 100 [place] [address] Resident Family Medicine 05/24/25 Ashley Diaz, WEEDER THINNER MAJOR APPLIANCE ASSEMBLY SUPERVISOR 420 [facility] 450 [place], [place] [address] Nurse Practitioner Colon & Rectal 05/24/25 Delmy Hoffman PA-C 909 [place], [place] [address] Assigned Surgical Provider 06/14/25 documented as of this encounter
--- OUTSIDE RECORDS SUMMARY | 2025-08-13 18:53 | XMS_ITS | Encounter Summary ---
Author Organization [place] Address [address] [place] [address] Care Team Providers Care Customer Experience Leader Name Role Phone Bell Little MD Primary Care Provid er Misti Harrison MD Unavailable Misti Harrison MD Unavailable Ashley Lopez MD Unavailable [phone] Rhianna Hess MD Unavailable Lisa Singh DO Primary Care Provider [phone] Bell Little MD Primary Care Provid er Siddhartha Cardoso MD Unavailable [phone] Rhianna Hess MD Unavailable Bell Little MD Unavailable + [phone] [facility] Provider Barbi Guy MD Unavailable Etta Ocampo MD Unavailable [phone] Rhina [place] MD Unavailable Unavailable Ashley Diaz APRN RESEARCH AND DEVELOPMENT CHEMIST Unavaila ble Delmy Hoffman PA-C Unavailable Julieta Zelaya MD Primary Care Provider [phone] Encounter Details Date Type Department Care Team (Late st Contact Info) Description 11/22/2020 MyC Medical Advice [facility] Pediatric Specialty Clinic [facility] [address] 1[address], [address] [place] [phone] Misti Harrison MD [address] [place] [address] [address] [place] [address] Social History Tobacco Use Types [...] st Contact Info) Description 08/31/2025 12:40 PM RISK SPECIALIST Therapy Visit Psychiatric [address] [place] [address] [address] [place] [phone] [place] [address] [place] [address] 09/06/2025 10:10 AM RISK SPECIALIST Therapy Visit Psychiatric [address] [facility] [address] [place] [phone] [place] [address] [place] [address] 09/20/2025 10:10 AM RISK SPECIALIST Therapy Visit [facility] [address] [facility] [address] [place] [phone] [place] [address] [facility] [address] [place] [address] documented as of this encounter Visit Diagnoses Not on filedocumented in this encounter Additional Health Concerns Assessment Noted Time PHQ-9 Depression Total Score: 0 11/14/19 8:41 AM RISK SPECIALIST documented as of this encounter Care Teams Customer Experience Leader Relationship Specialty Start Date End Date Bell Little MD PCP - General Pediatrics 07/11/17 12/11/20 Lisa Singh DO [address] [place] [address] PCP - General 12/12/20 04/10/21 Bell Little MD PCP - General Pediatrics 04/11/21 08/18/23 Clinic - [facility] 2535 [place] [address] PCP - General Clinic 08/19/23 08/02/25 Julieta Zelaya MD 1687 [place] [address] PCP - General Family Medicine 08/03/25 Misti Harrison MD [facility] [place] [id number] [place] [address] boat and plant utility supervisor & Neurology - Child & Adolescent Psychiatry 11/29/19 Misti Harrison MD [address] [place] [address] Assigned Behavioral Health Provider 07/14/20 04/12/24 Ashley Lopez MD 909 [facility] [place] [address] Assigned Musculoskeletal Provider 11/19/20 05/17/22 Rhianna Hess MD [address] [place] [address] Assigned PCP 11/19/20 08/23/22 Siddhartha Cardoso MD 2450 [facility] 505 [place] [address] Assigned Pediatric Specialist Provider 04/27/22 07/25/23 Rhianna Hess MD [address] [place] [address] Assigned PCP 08/24/22 05/09/23 Bell Little MD 1021 [facility] 100 [place] [address] Assigned PCP 05/10/23 10/15/23 Barbi Guy MD 717 [facility] 370 [place] [address] Assigned PCP 10/16/23 06/13/24 Etta Ocampo MD 1099 [facility] 100 [place] [address] Assigned PCP 06/14/24 hRina Os[place] MD 1099 [facility] 100 [place] [address] Resident Family Medicine 05/24/25 Ashley Diaz APRN RESEARCH AND DEVELOPMENT CHEMIST 420 [facility] 450 [place], [place] [address] Nurse Practitioner Colon & Rectal 05/24/25 Delmy Hoffman PA-C 909 [place], [place] [address] Assigned Surgical Provider 06/14/25 documented as of this encounter
--- OUTSIDE RECORDS SUMMARY | 2025-08-13 18:53 | XMS_ITS | Patient Health Record ---
Author Organization [facility] Address [address] [place] [address] Care Team Providers Care Transcript Evaluator Name Role Phone Garcia Julieta Primary Care Provider [phone] None, No PCP Unavailable Unavailable Mary Horne Unavailable [phone] Allergies No Known Allergies Results Component Value Reference Range Notes IRON, TIBC AND FERRITIN PANE L Reviewed date:04/21/2025 06:21:10 AM Interpretation: Performing Lab:DON [facility]-DDRdrive [id number] Mittel [employer]Guide, Wutsat [id number] Thomas Shelby Notes/Report: 0 0 0 0 IRON, TOTAL 52 40-190 mcg/dL IRON BINDING CAPACITY 344 250-450 mcg/dL (lilliana c) % SATURATION 15 16-45 % (calc) FERRITIN 35 16-154 ng/mL LIPID PANEL Reviewed date:04/21/2025 06:21:11 AM Interpretation: Performing Lab:DON Wayger [id number] Mittel [employer], Wutsat [id number] Thomas Shelby Notes/Report: 0 0 0 0 CHOLESTEROL, TOTAL 148 <200 mg/dL HDL CHOLESTEROL 58 > OR = 50 mg/dL TRIGLYCERIDES 90 <150 mg/dL LDL-CHOLESTEROL 73 Reference range: <100 Desirable range <100 mg/dL for primary prevention; <70 mg/dL for patients with CHD or diabetic patients with > or = 2 CHD risk factors. LDL-C is now calculated using the Tom-Alexandre calculation, which is a validated novel method providing better accuracy than the Friedewald equation in the estimation of LDL-C. Tom SS et al. DEBBI. 2013;310(02): 5259-2174 (http://education.Link Trigger/faq/RQW730) CHOL/HDLC RATIO 2.6 <5.0 (calc) NON HDL CHOLESTEROL 90 <130 mg/dL (calc) For patients with diabetes plus 1 major ASCVD risk factor, treating to a non-HDL-C goal of <100 mg/dL (LDL-C of <70 mg/dL) is considered a therapeutic option. COMPREHENSIVE METABOLIC PANE L (CMP) Reviewed date:04/21/2025 06:21:11 AM Interpretation: Performing Lab:DON, [facility]-[id number] [address], Wutsat [id number] Thomas Shelby Notes/Report: 0 0 0 0 GLUCOSE 78 65-99 mg/dL Fasting reference interval UREA NITROGEN (BUN) 8 7-25 mg/dL CREATININE 0.71 0.50-0.96 mg/dL EGFR 125 > OR = 60 mL/min/1.73m2 BUN/CREATININE RATIO SEE NOTE: 6-22 (calc) Not Reported: BUN and Creatinine are within reference range. SODIUM 138 135-146 mmol/L POTASSIUM 4.5 3.5-5.3 mmol/L CHLORIDE 103 98-110 mmol/L CARBON DIOXIDE 27 20-32 mmol/L CALCIUM 10.0 8.6-10.2 mg/dL PROTEIN, TOTAL 7.5 6.1-8.1 g/dL ALBUMIN 4.9 3.6-5.1 g/dL GLOBULIN 2.6 1.9-3.7 g/dL (calc) ALBUMIN/GLOBULIN RATIO 1.9 1.0-2.5 (calc) BILIRUBIN, TOTAL 0.3 0.2-1.2 mg/dL ALKALINE PHOSPHATASE 69 31-125 U/L AST 16 10-30 U/L ALT 16 6-29 U/L VITAMIN B12 Reviewed date:04/21/2025 06:21:11 AM Interpretation: Performing Lab:DON [facility] [id number], SeaWell [id number] Thomas Shelby Notes/Report: 0 0 0 0 VITAMIN B12 508 072-3673 pg/mL Please Note: Although the reference range for vitamin B12 is 200-1100 pg/mL, it has been reported that between 5 and 10% of patients with values between 200 and 400 pg/mL may experience neuropsychiatric and hematologic abnormalities due to occult B12 deficiency; less than 1% of patients with values above 400 pg/mL will have symptoms. CBC w/ 5-part Diff (IH) Reviewed date:04/21/2025 06:21:11 AM Interpretation: Performing Lab: Notes/Report: Manager Decision Support: LAB [facility] 520 ([facility]) [place] - Lab Reason For Referral No Information Medications Medication SIG (Take, Route, Frequency, Duration) Notes Start Date End Date Status hydrOXYzine HCl 25 MG 1 tablet as needed Orally Once a day; Duration: 30 days Active buPROPion HCl ER (XL) 150 MG 1 tablet in the morning Orally Once a day; Duration: 90 days Active Aviane 0.1-20 MG-MCG 1 tablet Orally Onc e a day; Duration: 84 days 07/26/2025 Active Fluticasone Propionate HFA 110 MCG/ACT 2 puffs Inhalation Twice a day Active PROzac 10 MG 1 capsule Orally Onc e a day; Duration: 90 days Active FLUoxetine HCl 20 MG 1 capsule Orally On ce a day; Duration: 90 days Active FLUoxetine HCl 10 MG 1 capsule Orally On ce a day; Duration: 90 days 04/19/2025 Active Albuterol Sulfate HFA 108 (90 Base) MCG/ACT 1 puff as needed Inhalation every 4 hrs Active Immunizations Vaccine Route Administration Date Status Comme nts Varicella Unknown 03/19/2010 Administered TDAP Unknown 05/28/2016 Administered Spikevax 12+ VFC Unknown 06/23/2024 Administered Rubella (CVX 94) Unknown 06/09/2006 Administered Pneumococcal conjugate PCV 7 Unknown 2005 Adminis tered Pneumococcal conjugate PCV 7 Unknown 2005 Adminis tered Pneumococcal conjugate PCV 7 Unknown 03/18/2006 Adminis tered Pneumococcal conjugate PCV 7 Unknown 06/19/2006 Adminis tered MMR Unknown 03/19/2010 Administered Meningococcal MCV4O (CVX 136) Unknown 05/28/2016 Admini stered Meningococcal MCV4O (CVX 114) Unknown 03/17/2018 Admini stered IPV Unknown 2005 Administered IPV Unknown 2005 Administered HPV (human papillomavirus), bivalent, 3 dose schedule Unknown 05/28/2016 Administered Hib (PRP-OMP), 3 dose schedule Unknown 06/09/2006 Admin istered Hep B, adolescent or pediatr ic (11-19), 3 dose schedule Unknown 2005 Administered Hep B, adolescent or pediatr ic (11-19), 3 dose schedule Unknown 2005 Administered Hep A, ped/adol, 2 dose Unknown 03/18/2006 Administered Hep A, ped/adol, 2 dose Unknown 10/01/2006 Administered Fluzone Quadravalent .5mL syringe Unknown 07/14/2017 Ad ministered Fluzone Quadravalent .5mL syringe Unknown 08/14/2020 Ad ministered Fluzone Quadravalent .5mL syringe Unknown 09/21/2021 Ad ministered Flu vaccine no Preserv 3 and > Unknown 07/25/2006 Admin istered Flu vaccine no Preserv 3 and > Unknown 09/02/2006 Admin istered Flu vaccine no Preserv 3 and > Unknown 08/18/2007 Admin istered Flu vaccine no Preserv 3 and > Unknown 08/02/2008 Admin istered Flu vaccine no Preserv 3 and > Unknown 08/21/2009 Admin istered Flu vaccine no Preserv 3 and > Unknown 07/31/2010 Admin istered Flu vaccine no Preserv 3 and > Unknown 06/23/2024 Admin istered DTaP-IPV Unknown 03/19/2010 Administered DTaP-Hep B-IPV Unknown 06/09/2006 Administered DTaP Unknown 2005 Administered DTaP Unknown 2005 Administered DTaP Unknown 2005 Administered Social History Tobacco Use: Social History Observation Description Date Details (start date - stop date) Never Smoker NA - NA Tobacco Use/Smoking Question Answer Notes Are you a nonsmoker Problems Problem Type SNOMED Code ICD Code Onset Dates Problem Status W/U Status Risk Notes Problem Herniation of rectum into vagina (307971790) Rectocele (N81.6) Active confirmed Problem Family history of stroke (538569614) Family history of stroke (Z82.3) Active confirmed Problem Constipation (40230464) Constipation (K59.00) Active confirmed Problem Family history of breast cancer (208722162) Family history of breast cancer (Z80.3) Active confirmed Problem Dizziness (882878881) Dizziness (R42) Active confirmed Problem Autism (33523696) Autism (F84.0) 1 Active confirmed Problem Paresthesia of both hands (002018006) Paresthesia of both hands (R20.2) Active confirmed Problem Tremor (28707956) Tremor (R25.1) Active confirmed Problem Generalized anxiety disorder (00935671) [place] (generalized anxiety disorder) (F41.1) Active confirmed Problem Mild intermittent asthma (069239074) Mild intermittent asthma (J45.20) Active confirmed Vital Signs Heart Rate 65 /min 04/19/2025 Oximetry 98 % 04/19/2025 Blood pressure diastolic 58 mm Hg 04/19/2025 Height 66.5 in 07/13/2025 Blood pressure systolic 122 mm Hg 04/19/2025 Weight 155.2 lbs 04/19/2025 BMI 24.67 kg/m2 04/19/2025 Encounters Encounter Location Date Provider Diagnosis [facility] [place] [address] 04/19/2025 Julitea Zelaya Paresthesia of both hands R20.2 ; Encounter for annual general medical examination with abnormal findings in adult Z00.01 ; Constipation K59.00 and Tremor R25.1 [facility] [place] [address] 07/13/2025 Julieta Zelaya Dizziness R42 ; Tremor R25.1 ; Constipation K59.00 ; Rectocele N81.6 and Encounter for counseling regarding contraception Z30.09 [facility] [place] [address] 07/15/2025 Julieta Zelaya [facility] [place] [address] 07/13/2025 Julieta Zelaya [facility] [place] [address] 07/13/2025 Julieta Zelaya [facility] [place] [address] 06/30/2025 Julieta Zelaya [facility] [place] [address] 06/29/2025 Julieta Zelaya [facility] [place] [address] 06/23/2025 Julieta Zelaya [facility] [place] [address] 06/22/2025 Julieta Zelaya [facility] [place] [address] 06/21/2025 Julieta Zelaya [facility] [address] [place], [place] [id number] 05/19/2025 Julieta Zelaya [facility] [place] [address] 09/13/2024 Mary Horne [facility] [place] [address] 07/29/2025 Julieta Zelaya [facility] [place] [address] 07/28/2025 Julieta Zelaya [facility] [place] [address] 07/26/2025 Julieta Zelaya [facility] [place] [address] 07/25/2025 Julieta Zelaya [facility] [place] [address] 07/18/2025 Julieta Zelaya Assessments Encounter Date Diagnosis (ICD Code) Assessment Notes Treatment Notes Treatment Clinical Notes Section Notes 07/13/2025 Dizziness (ICD-10 - R42) 07/13/2025 Tremor (ICD-10 - R25.1) 04/19/2025 Encounter for annual general medical examination with abnormal findings in adult (ICD-10 - Z00.01) 04/19/2025 Paresthesia of both hands (ICD-10 - R20.2) 04/19/2025 Constipation (ICD-10 - K59.00) 07/13/2025 Constipation (ICD-10 - K59.00) 04/19/2025 Tremor (ICD-10 - R25.1) 07/13/2025 Rectocele (ICD-10 - N81.6) 07/13/2025 Encounter for counseling regarding contraception (ICD-10 - Z30.09) 04/19/2025 Other I, Deja Dean, am serving as a scribe to document services personally performed by Julieta Zelaya DO based upon my observations and the provider's statements to me. All documentation has been reviewed by the aforementioned doctor prior to being entered into the official medical record. I, Julieta Zelaya DO, attest that the above is a true reflection of my patient encounter and that I have made the final edit. 07/13/2025 Other Bárbara Arias presents with persistent dizziness [...] Reiterated that recommendation. -Discussed when back from dou[place] if still symptomatic, would have her consider [...] OCP. Discussed starting low dose. Originating site: [facility] location Distant site: pt home Start time: 12:20 Stop time: 12:50 30 minutes spent in chart review, discussing with patient and documentation regarding: - review of previous records - preparation for visit - ordering medications, labs or imaging - documenting visit - Discussing plan of care and management - discussion of care with another health foster care social worker - direct face to face time with patient including obtaining relevant history, physical exam and discussion of plan of care Patient encouraged to call with any further questions or concerns Plan Of Treatment Next Appt Details Provider Name:Julieta Zelaya , 04/19/2026 01:00:00 PM, [address], [facility] [address], [place], [address], Insurance Providers Payer Name Payer Address Payer Phone Subscriber Number Group Number Insured Name Patient Relationship to Insured Coverage Start Date Coverage End Date [employer] (PayerI D [id number]) (Ins. Bill) [address] [place], [place] [id number] Bárbara Arias Self - patient is the insured Medical (General) History Surgical History Surgery Date(Month/Year) wisdom teeth 04/04/2025
--- OUTSIDE RECORDS SUMMARY | 2025-08-13 18:53 | XMS_ITS | Encounter Summary ---
Author Organization [facility] Address [address] [place] [address] Care Team Providers Care Tool Maker Apprentice Name Role Phone Misti Harrison MD Unavailable Misti Harrison MD Unavailable Ashley Lopez MD Unavailable [phone] Rhianna Hess MD Unavailable Bell Little MD Primary Care Provid er Siddhartha Cardoso MD Unavailable [phone] Rhianna Hess MD Unavailable Bell Little MD Unavailable + [phone] [facility] re Provider Barbi Guy MD Unavailable Etta Ocampo MD Unavailable [phone] Rhina Osullivan MD Unavailable Unavailable Ashley Diaz APRN VACUUM METALIZING SUPERVISOR Unavaila ble Delmy Hoffman PA-C Unavailable [phone] Julieta Zelaya MD Primary Care Provider + [phone] Encounter Details Date Type Department Care Team (Late st Contact Info) Description 05/31/2021 MyC Medical Advice [facility] [address] 1[address] Floor, [address] [place] [phone] Rhianna Hess MD [address] [place], [place] [id number] Social History Tobacco Use Types Packs/Day Years [...] have Coronavirus / COVID-19? No / Unsure 05/15/2021 4:44 PM CDT documented as of this encounter Plan of Treatment Upcoming Encounters Date Type Department Care Team (Late st Contact Info) Description 08/31/2025 12:40 PM BELT AND LINK ASSEMBLY SUPERVISOR Therapy Visit [facility] [address] [facility] [address] [place] [phone] [place] [address] [place] [address] 09/06/2025 10:10 AM BELT AND LINK ASSEMBLY SUPERVISOR Therapy Visit [facility] [address] [place] [address] [place] [address] [place] [address] [place] [address] 09/20/2025 10:10 AM BELT AND LINK ASSEMBLY SUPERVISOR Therapy Visit [facility] [address] [facility] [address] [place] [phone] [place] [address] [facility] [address] [place] [address] documented as of this encounter Visit Diagnoses Not on filedocumented in this encounter Additional Health Concerns Assessment Noted Time PHQ-9 Depression Total Score: 0 11/14/19 8:41 AM BELT AND LINK ASSEMBLY SUPERVISOR documented as of this encounter Care Teams Tool Maker Apprentice Relationship Specialty Start Date End Date Bell Little MD [address] [place], [place] [address] PCP - General Pediatrics 04/11/21 08/18/23 Clinic - [facility] [address]35 [place] [phone] PCP - General Clinic 08/19/23 08/02/25 Julieta Zelaya MD [address] [place] [id number] PCP - General Family Medicine 08/03/25 Misti Harrison MD [address] [place] [address] 260654 sales compensation analyst & Neurology - Child & Adolescent Psychiatry 11/29/19 Misti Harrison MD [address] [place] [address]74404 Assigned Behavioral Health Provider 07/14/20 04/12/24 Ashley Lopez MD [address] [place] [address] Assigned Musculoskeletal Provider 11/19/20 05/17/22 Rhianna Hess MD [address]24 [place] [address] Assigned PCP 11/19/20 08/23/22 Siddhartha Cardoso MD [address] [place] [address] Assigned Pediatric Specialist Provider 04/27/22 07/25/23 Rhianna Hess MD [address]24 [place] [address] Assigned PCP 08/24/22 05/09/23 Bell Little MD [address] [facility] [address] [facility] 100 [place] [address] Assigned PCP 05/10/23 10/15/23 Barbi Guy MD [address] [facility] [address] [place] [address] Assigned PCP 10/16/23 06/13/24 Etta Ocampo MD [address] [place], [place] [phone] Assigned PCP 06/14/24 Rhina Osullivan MD [address] [facility] [address] [place] [address] Resident Family Medicine 05/24/25 Ashley Diaz, OFFICE MACHINE REPAIR SHOP SUPERVISOR VACUUM METALIZING SUPERVISOR [address] [facility] 450 [place] [address] Nurse Practitioner Colon & Rectal 05/24/25 Delmy Hoffman PA-C [address] [place] [address] Assigned Surgical Provider 06/14/25 documented as of this encounter
--- OUTSIDE RECORDS SUMMARY | 2025-08-13 18:53 | XMS_ITS | Encounter Summary ---
Author Organization [facility] Address [address] [place] [address] Care Team Providers Care Heavy Equipment Engine Mechanic Name Role Phone Bell Little MD Primary Care Provid er Bell Little MD Unavailable [phone] Misti Harrison MD Unavailable Venkatesh Valenzuela NP Unavailable [phone] Ashley Lopez MD Unavailable [phone] Misti Harrison MD Unavailable Ashley Lopez MD Unavailable [phone] Rhianna Hess MD Unavailable Lisa Singh DO Primary Care Provider [phone] Bell Little MD Primary Care Provid er Siddhartha Cardoso MD Unavailable [phone] Rhianna Hess MD Unavailable Bell Little MD Unavailable [phone] [facility] Provider Barbi Guy MD Unavailable Etta Ocampo MD Unavailable [phone] Rhina Osullivan MD Unavailable Unavailable Ashley Diaz APRN DOWNSTREAM BIOMANUFACTURING TECHNICIAN Unavaila ble Delmy Hoffman PA-C Unavailable [phone] Julieta Zelaya MD Primary Care Provider [phone] Reason for Visit * Reason Onset Date Comments Patient Inquiry 06/20/2020 Biofeedback Encounter Details Date Type Department Care Team (Late st Contact Info) Description 06/20/2020 MyC Medical Advice [facility] [address] [address] Misti Harrison MD [address] [address] Patient Inquiry (Biofeedback) Social History Tobacco Use Types Packs/Day Years [...] encounter Miscellaneous Notes * Telephone Encounter - Maira Blair RN - 06/21/2020 8:48 AM CDT ----- Message ----- From: Misti Harrison MD Sent: 06/20/2020 10:16 PM CDT To: Maira Blair RN Subject: FW: Do I need an appointment? Hi! In the [facility], I would recommend either Dr. Hobbs (Peds/Integrative Med) or Dr. Hess -- they are both amazing. I though Dr. Hess and Dr. Contreras both did Biofeedback and they both practice in the [facility].They are both Developmental Behavioral Peds. I'm so glad mom is going to look into this! Thanks for your help in making it happen! Omayra documented in this encounter Plan of Treatment Upcoming Encounters Date Type Department Care Team (Late st Contact Info) Description 08/31/2025 12:40 PM CARDIOTHORACIC PHYSIOTHERAPIST Therapy Visit [facility] [address] [place] [address] [place] [address] [place] [address] 09/06/2025 10:10 AM CARDIOTHORACIC PHYSIOTHERAPIST Therapy Visit [address] [place] [address] [place] [address] [place] [address] 09/20/2025 10:10 AM CARDIOTHORACIC PHYSIOTHERAPIST Therapy Visit [address] [phone] [place] [address] [place] [address] documented as of this encounter Visit Diagnoses Not on filedocumented in this encounter Additional Health Concerns Assessment Noted Time PHQ-9 Depression Total Score: 5 11/17/19 20 8:44 AM CARDIOTHORACIC PHYSIOTHERAPIST documented as of this encounter Care Teams Heavy Equipment Engine Mechanic Relationship Specialty Start Date End Date Bell Little MD PCP - General Pediatrics 07/11/17 12/11/20 iLsa Singh DO [address] [place], [place] [address] PCP - General 12/12/20 04/10/21 Bell Little MD PCP - General Pediatrics 04/11/21 08/18/23 Clinic - [facility] [address] [place] [phone] PCP - General Clinic 08/19/23 08/02/25 Julieta Zelaya MD [address] [place] [address] PCP - General Family Medicine 08/03/25 [place] [address] [place] [address] 100 [place] [address] Assigned PCP 11/10/16 11/18/20 Misti Harrison MD [address] [place] [address] naval gunfire spotter & Neurology - Child & Adolescent Psychiatry 11/29/19 Venkatesh Valenzuela, SUPERVISOR MACHINING [address] [facility] [place] [address] Assigned Pediatric Specialist Provider 07/14/20 11/18/20 Ashley Lopez MD [address] [place] [address] Assigned Musculoskeletal Provider 07/14/20 11/11/20 Misti Harrison MD [address] [place] [address] Assigned Behavioral Health Provider 07/14/20 04/12/24 Ashley Lopez MD [address] [place] [address] Assigned Musculoskeletal Provider 11/19/20 05/17/22 Rhianna Hess MD [address] [place] [address] Assigned PCP 11/19/20 08/23/22 Siddhartha Cardoso MD [address] [facility] [place] [address] Assigned Pediatric Specialist Provider 04/27/22 07/25/23 Rhianna Hess MD [address] [place] [address] Assigned PCP 08/24/22 05/09/23 Bell Little MD [address] [facility] [address] [facility] 100 [place] [address] Assigned PCP 05/10/23 10/15/23 Barbi Guy MD 717 [facility] 370 [place] [address] Assigned PCP 10/16/23 06/13/24 Etta Ocampo MD 1099 [facility] 100 [place], [place] [phone] Assigned PCP 06/14/24 Rhina Osullivan MD 1099 [facility] 100 [place] [address] Resident Family Medicine 05/24/25 Ashley Diaz APRN DOWNSTREAM BIOMANUFACTURING TECHNICIAN [address] [place] [address] 450 [place], [place] [address] Nurse Practitioner Colon & Rectal 05/24/25 Delmy Hoffman PA-C [address] [place] [address] [id number] Assigned Surgical Provider 06/14/25 documented as of this encounter
--- OUTSIDE RECORDS SUMMARY | 2025-08-13 18:53 | XMS_ITS | Encounter Summary ---
Author Organization [place] Address [address] [place] [address] Care Team Providers Care Power Brake Operator Name Role Phone Misti Harrison MD Unavailable Misti Harrison MD Unavailable Ashley Lopez MD Unavailable [phone] Rhianna Hess MD Unavailable Lisa Singh DO Primary Care Provider [phone] Bell Little MD Primary Care Provid er Siddhartha Cardoso MD Unavailable [phone] Rhianna Hess MD Unavailable Bell Little MD Unavailable + [phone] [facility] Primary Ia re Provider Barbi Guy MD Unavailable Etta Ocampo MD Unavailable +[phone] Rhina Osullivan MD Unavailable Unavailable Ashley Diaz APRN CORRECTION OFFICER REFORMATORY Unavaila ble Delmy Hoffman PA-C Unavailable +[phone] Julieta Zelaya MD Primary Care Provider [phone] Encounter Details Date Type Department Care Team (Late st Contact Info) Description 03/14/2021 MyC Medical Advice [facility] [address] 1st Floor, [address] [place] [phone] Rhianna Hess MD [address] [place], [place] [id number] Social History Tobacco Use Types Packs/Day Years [...] st Contact Info) Description 08/31/2025 12:40 PM TIMBER GRADER Therapy Visit [address] [phone] [place] [address] [place] [address] 09/06/2025 10:10 AM TIMBER GRADER Therapy Visit [address] [phone] [place] [address] [place] [address] 09/20/2025 10:10 AM TIMBER GRADER Therapy Visit [address] [phone] [place] [address] [facility] 300 [place], [place] 3185[address] documented as of this encounter Visit Diagnoses Not on filedocumented in this encounter Additional Health Concerns Assessment Noted Time PHQ-9 Depression Total Score: 0 11/14/19 8:41 AM TIMBER GRADER documented as of this encounter Care Teams Power Brake Operator Relationship Specialty Start Date End Date Lisa Singh DO 2024 [place] [address] PCP - General 12/12/20 04/10/21 Bell Little MD 2024 [place] [address] PCP - General Pediatrics 04/11/21 08/18/23 Clinic - [address] [phone] PCP - General Clinic 08/19/23 08/02/25 Julieta Zelaya MD [address] [place] [address] PCP - General Family Medicine 08/03/25 Misti Harrison MD [facility] [address] underground miner & Neurology - Child & Adolescent Psychiatry 11/29/19 Misti Harrison MD [facility] [place] [address] 609344 Assigned Behavioral Health Provider 07/14/20 04/12/24 Ashley Lopez MD 909 [place] [address] Assigned Musculoskeletal Provider 11/19/20 05/17/22 Rhianna Hess MD [address] [place] [address] Assigned PCP 11/19/20 08/23/22 Siddhartha Cardoso MD [address] 505 [place] [address] Assigned Pediatric Specialist Provider 04/27/22 07/25/23 Rhianna Hess MD 2024 [place] [address] Assigned PCP 08/24/22 05/09/23 Bell Little MD 1021 [facility] E [facility] 100 [place], [place] [phone] Assigned PCP 05/10/23 10/15/23 Barbi Guy MD 717 [facility] 370 [place] [address] Assigned PCP 10/16/23 06/13/24 Etta Ocampo MD [address] [facility] 100 [place], [place] [phone] Assigned PCP 06/14/24 Rhina Osullivan MD [address] [facility] 100 [place] [address] Resident Family Medicine 05/24/25 Ashley Diaz, PHYSICIAN SUPPORT COORDINATOR CORRECTION OFFICER REFORMATORY [address] [place] [address] Nurse Practitioner Colon & Rectal 05/24/25 Delmy Hoffman PA-C [address] [place] [address] Assigned Surgical Provider 06/14/25 documented as of this encounter
--- OUTSIDE RECORDS SUMMARY | 2025-08-13 18:53 | XMS_ITS | Encounter Summary ---
Author Organization [place] Address [address] [place] [address] Care Team Providers Care Twist Maker Name Role Phone Misti Harrison MD Unavailable Misti Harrison MD Unavailable Ashley Lopez MD Unavailable [phone] Rhianna Hess MD Unavailable Lisa Singh DO Primary Care Provider [phone] Bell Little MD Primary Care Provid er Siddhartha Cardoso MD Unavailable [phone] Rhianna Hess MD Unavailable Bell Little MD Unavailable + [phone] [facility] Primary Ma re Provider Barbi Guy MD Unavailable Etta Ocampo MD Unavailable [phone] Rhina Osullivan MD Unavailable Unavailable Ashley Diaz APRN RETAIL COSMETICS SALES BEAUTY ADVISOR Unavaila ble Delmy Hoffman PA-C Unavailable [phone] Julieta Zelaya MD Primary Care Provider [phone] Encounter Details Date Type Department Care Team (Late st Contact Info) Description 03/13/2021 MyC Medical Advice [facility]ty Clinic [facility] [address] 1st Floor, [address] [place] [phone] Rhianna Hess MD [address] [place], [place] [phone] Social History Tobacco Use Types Packs/Day Years [...] st Contact Info) Description 08/31/2025 12:40 PM DIRECTOR OF CARDIOLOGY SERVICE LINE Therapy Visit [address] [phone] [place] [address] [place] [address] 09/06/2025 10:10 AM DIRECTOR OF CARDIOLOGY SERVICE LINE Therapy Visit [address] [phone] [place] [address] [place] [address] 09/20/2025 10:10 AM DIRECTOR OF CARDIOLOGY SERVICE LINE Therapy Visit [address] [phone] [place] [address] [facility] 300 [place], [place] 0701[address] documented as of this encounter Visit Diagnoses Not on filedocumented in this encounter Additional Health Concerns Assessment Noted Time PHQ-9 Depression Total Score: 0 11/14/19 8:41 AM DIRECTOR OF CARDIOLOGY SERVICE LINE documented as of this encounter Care Teams Twist Maker Relationship Specialty Start Date End Date Lisa Singh DO 2024 [place] [address] PCP - General 12/12/20 04/10/21 Bell Little MD 2024 [place] [address] PCP - General Pediatrics 04/11/21 08/18/23 Clinic - [address] [phone] PCP - General Clinic 08/19/23 08/02/25 Julieta Zelaya MD [address] [place] [address] PCP - General Family Medicine 08/03/25 Misti Harrison MD [facility] [address] [address]63[address] attorney at law & Neurology - Child & Adolescent Psychiatry 11/29/19 Misti Harrison MD [facility] [place] [address] 823954 Assigned Behavioral Health Provider 07/14/20 04/12/24 Ashley Lopez MD 909 [place] [address] Assigned Musculoskeletal Provider 11/19/20 05/17/22 Rhianna Hess MD [address] [place] [address] Assigned PCP 11/19/20 08/23/22 Siddhartha Cardoso MD [address] 505 [place] [address] Assigned Pediatric Specialist Provider 04/27/22 07/25/23 Rhianna Hess MD 2024 [place] [address] Assigned PCP 08/24/22 05/09/23 Bell Little MD 1021 [facility] E [facility] 100 [place], [place] [id number] Assigned PCP 05/10/23 10/15/23 Barbi Guy MD 717 [facility] 370 [place] [address] Assigned PCP 10/16/23 06/13/24 Etta Ocampo MD [address] [facility] 100 [place], [place] [phone] Assigned PCP 06/14/24 Rhina Osullivan MD [address] [facility] 100 [place] [address] Resident Family Medicine 05/24/25 Ashley Diaz, WINCHER RETAIL COSMETICS SALES BEAUTY ADVISOR [address] [place] [address] Nurse Practitioner Colon & Rectal 05/24/25 Delmy Hoffman PA-C [address] [place] [address] Assigned Surgical Provider 06/14/25 documented as of this encounter
--- OUTSIDE RECORDS SUMMARY | 2025-08-13 18:53 | XMS_ITS | Encounter Summary ---
Author Organization [place] Address [address] [place] [address] Care Team Providers Care Speeder Frame Tender Name Role Phone Misti Harrison MD Unavailable Misti Harrison MD Unavailable Bell Little MD Primary Care Provid er Bell Little MD Unavailable + [phone] [facility] re Provider Barbi Guy MD Unavailable Etta Ocampo MD Unavailable [phone] Rhina Osullivan MD Unavailable Unavailable Ashley Diaz APRN ASSISTANT DIRECTOR OF RESIDENCE LIFE Unavaila ble Delmy Hoffman PA-C Unavailable [phone] Julieta Zelaya MD Primary Care Provider [phone] Reason for Visit * Reason Onset Date Comments Refill Request 08/18/2023 Encounter Details Date Type Department Care Team (Late st Contact Info) Description 08/18/2023 [facility] 2024 [place] [address] Misti Harrison MD [address] [facility] [address] [place] [address] Refill Request Social History Tobacco Use Types Packs/Day Years Used Date Smoking Tobacco: Never Passive Smoke Exposure: Never Smokeless Tobacco: Never Alcohol Use Standard Drinks/Week Comments No 0 (1 standard drink = 0.6 oz pur e alcohol) PHQ-2 Answer Date Recorded PHQ-2 Score 2 07/01/2022 Hunger Vital Sign Answer Date Recorded Within [...] place to sleep or slept in a long term (including now)? No 03/05/2023 Adolescent Education Answer [...] st Contact Info) Description 08/31/2025 12:40 PM CASTER INVESTMENT CASTING Therapy Visit [facility] [address] [facility] [address] [place] [address] [place] [address] [place] [address] 09/06/2025 10:10 AM CASTER INVESTMENT CASTING Therapy Visit [facility] [address] [facility] [address] [place] [phone] [place] [address] [place] [address] 09/20/2025 10:10 AM CASTER INVESTMENT CASTING Therapy Visit [facility] [id number] [place] [address] [place] [phone] [place] [address] [place] [address] documented as of this encounter Visit Diagnoses Diagnosis Generalized anxiety disorder Separation anxiety disorder documented in this encounter Additional Health Concerns Assessment Noted Time PHQ-9 Depression Total Score: 0 03/05/20 23 2:24 PM CDT documented as of this encounter Care Teams Speeder Frame Tender Relationship Specialty Start Date End Date Bell Little MD [facility] [place] [address] PCP - General Pediatrics 04/11/21 08/18/23 Clinic - [place] [address] [place] [phone] PCP - General Clinic 08/19/23 08/02/25 [place] [address] [place] [address] PCP - General Family Medicine 08/03/25 Misti Harrison MD [address] [place] [address] [place] [address] optometric coordinator & Neurology - Child & Adolescent Psychiatry 11/29/19 Misti Harrison MD [address] [place] [address] [address] [place] [address] Assigned Behavioral Health Provider 07/14/20 04/12/24 Bell Little MD [address] [place] 100 [place] [address] Assigned PCP 05/10/23 10/15/23 Barbi Guy MD 717 [facility] [address] [place] [address] Assigned PCP 10/16/23 06/13/24 Etta Ocampo MD [address] [place] 100 [place], [place] [phone] Assigned PCP 06/14/24 Rhina Osullivan MD [address] [place] 100 [place] [address] Resident Family Medicine 05/24/25 Ashley Diaz, LUGGAGE REPAIRER ASSISTANT DIRECTOR OF RESIDENCE LIFE 420 [facility] 450 [place] [address] Nurse Practitioner Colon & Rectal 05/24/25 Delmy Hoffman PA-C 909 [place], [place] 350935 Assigned Surgical Provider 06/14/25 documented as of this encounter
--- OUTSIDE RECORDS SUMMARY | 2025-08-13 18:53 | XMS_ITS | Encounter Summary ---
Author Organization [place] Address [address] [place] [address] Care Team Providers Care Community Sports Coordinator Name Role Phone Misti Harrison MD Unavailable Misti Harrison MD Unavailable Bell Little MD Primary Care Provid er Siddhartha Cardoso MD Unavailable [phone] Rhianna Hess MD Unavailable Bell Little MD Unavailable + [phone] [facility] Primary Ca re Provider Barbi Guy MD Unavailable Etta Ocampo MD Unavailable [phone] Rhina Osullivan MD Unavailable Unavailable Ashley Diaz APRN FRAME CARVER SPINDLE Unavaila ble Delmy Hoffman PA-C Unavailable [phone] Julieta Zelaya MD Primary Care Provider [phone] Encounter Details Date Type Department Care Team (Late st Contact Info) Description 04/07/2023 [facility] [address] [place] [address] Nathaniel Barraza Social History Tobacco Use Types Packs/Day [...] health care facility (including now)? No 03/05/2023 Comments No Sex and Gender Information Value Date Recorded Sex Assigned at Female 04/09/2023 3:22 PM CDT Legal Sex Female 12:17 PM CDT Gender Identity Female 04/09/2023 3:22 PM CDT Sexual Orientation Bisexual 04/09/2023 3: 22 PM CDT documented as of this encounter Plan of Treatment Upcoming Encounters Date Type Department Care Team (Late st Contact Info) Description 08/31/2025 12:40 PM INTERNAL CONTROL ANALYST Therapy Visit [facility] [address] [facility] [address] [place] [phone] [place] [address] [place] [address] 09/06/2025 10:10 AM INTERNAL CONTROL ANALYST Therapy Visit [facility] [address] [facility] [address] [place] [phone] [place] [address] [place] [address] 09/20/2025 10:10 AM INTERNAL CONTROL ANALYST Therapy Visit [facility] [address] [facility] [address] [place] [phone] [place] [address] [place], [place] [phone] documented as of this encounter Visit Diagnoses Not on filedocumented in this encounter Additional Health Concerns Assessment Noted Time PHQ-9 Depression Total Score: 0 03/05/20 23 2:24 PM CDT documented as of this encounter Care Teams Community Sports Coordinator Relationship Specialty Start Date End Date Bell Little MD [address] [place] [address] PCP - General Pediatrics 04/11/21 08/18/23 Clinic - [facility] 2535 [place] [phone] PCP - General Clinic 08/19/23 08/02/25 Julieta Zelaya MD 1687 [place] [address] PCP - General Family Medicine 08/03/25 Misti Harrison MD [address] [place] [address] education assistant & Neurology - Child & Adolescent Psychiatry 11/29/19 Misti Harrison MD [address] [place] [address] [place], [place] [address] Assigned Behavioral Health Provider 07/14/20 04/12/24 Siddhartha Cardoso MD [address] 505 [place] [address] Assigned Pediatric Specialist Provider 04/27/22 07/25/23 Rhianna Hess MD [address] [place], [place] 5[address] Assigned PCP 08/24/22 05/09/23 Bell Little MD [facility] [place] 100 [place], [place] [phone] Assigned PCP 05/10/23 10/15/23 Barbi Guy MD [address] [place], [place] [address] Assigned PCP 10/16/23 06/13/24 Etta Ocampo MD [address] [facility] 100 [place], [place] [phone] Assigned PCP 06/14/24 Rhina Osullivan MD [address] [facility] 100 [place] [address] Resident Family Medicine 05/24/25 Ashley Diaz APRN FRAME CARVER SPINDLE [address] [place] [address] [facility] 450 [place] [address] Nurse Practitioner Colon & Rectal 05/24/25 Delmy Hoffman PA-C 909 [place] [address] Assigned Surgical Provider 06/14/25 documented as of this encounter
--- OUTSIDE RECORDS SUMMARY | 2025-08-13 18:53 | XMS_ITS | Encounter Summary ---
Author Organization [place] Address [address] [place] [address] Care Team Providers Care Senior Planning Analyst Name Role Phone Misti Harrison MD Unavailable Misti Harrison MD Unavailable Ashley Lopez MD Unavailable [phone] Rhianna Hess MD Unavailable Bell Little MD Primary Care Provid er Siddhartha Cardoso MD Unavailable [phone] Rhianna Hess MD Unavailable Bell Little MD Unavailable + [phone] [facility] re Provider Barbi Guy MD Unavailable Etta Ocampo MD Unavailable [phone] Rhina Osullivan MD Unavailable Unavailable Ashley iDaz APRN INTERNET RETAILER Unavaila ble Delmy Hoffman PA-C Unavailable [phone] Julieta Zelaya MD Primary Care Provider + [phone] Encounter Details Date Type Department Care Team (Late st Contact Info) Description 05/15/2021 MyC Medical Advice [facility] [address] 1st Floor, [address] [place] [phone] Rhianna Hess MD [address] [place], [place] [address] Social History Tobacco Use Types Packs/Day Years [...] st Contact Info) Description 08/31/2025 12:40 PM VENDING MACHINE FILLER [facility] [address] [facility] [address] [place] [phone] [place] [address] [place] [address] 09/06/2025 10:10 AM VENDING MACHINE FILLER [facility] [address] [place] [phone] [place] [address] [place] [address] 09/20/2025 10:10 AM VENDING MACHINE FILLER [facility] [address] [facility] [address] [place] [phone] [place] [address] [facility] 300 [place] [address] documented as of this encounter Visit Diagnoses Not on filedocumented in this encounter Additional Health Concerns Assessment Noted Time PHQ-9 Depression Total Score: 0 11/14/19 8:41 AM VENDING MACHINE FILLER documented as of this encounter Care Teams Senior Planning Analyst Relationship Specialty Start Date End Date Bell Little MD 2024 [address] [place], [place] 8[address] PCP - General Pediatrics 04/11/21 08/18/23 Clinic - [facility] 2535 [place] [phone] PCP - General Clinic 08/19/23 08/02/25 Julieta Zelaya MD [address] [place] [phone] PCP - General Family Medicine 08/03/25 Misti Harrison MD [address] [place] [address] 679004 resin mixer & Neurology - Child & Adolescent Psychiatry 11/29/19 Misti Harrison MD [address] [place] [address] 990274 Assigned Behavioral Health Provider 07/14/20 04/12/24 Ashley Lopez MD [address] [place] [address] Assigned Musculoskeletal Provider 11/19/20 05/17/22 Rhianna Hess MD 2024 [place] [address] Assigned PCP 11/19/20 08/23/22 Siddhartha Cardoso MD [address] 505 [place] [address] Assigned Pediatric Specialist Provider 04/27/22 07/25/23 Rhianna Hess MD 2024 [place] [address] Assigned PCP 08/24/22 05/09/23 Bell Little MD [facility] 100 [place] [address] Assigned PCP 05/10/23 10/15/23 Barbi Guy MD 717 [facility] 370 [place] [address] Assigned PCP 10/16/23 06/13/24 Etta Ocampo MD [address] [facility] 100 [place], [place] [address] Assigned PCP 06/14/24 Rhina Osullivan MD [address] [facility] [address] [facility] 100 [place] [address] Resident Family Medicine 05/24/25 Ashley Diaz, READING INTERVENTIONIST INTERNET RETAILER 420 [facility] 450 [place] [address] Nurse Practitioner Colon & Rectal 05/24/25 Delmy Hoffman PA-C [address] [place] [address] Assigned Surgical Provider 06/14/25 documented as of this encounter
--- OUTSIDE RECORDS SUMMARY | 2025-08-13 18:53 | XMS_ITS | Encounter Summary ---
Author Organization [place] Address [address] [place] [address] Care Team Providers Care Laser Beam Trim Operator Name Role Phone Bell Little MD Primary Care Provid er Bell Little MD Unavailable [phone] Misti Harrison MD Unavailable Venkatesh Valenzuela NP Unavailable [phone] Ashley Lopez MD Unavailable [phone] Misti Harrison MD Unavailable Ashley Lopez MD Unavailable + [phone] Rhianna Hess MD Unavailable Lisa Singh DO Primary Care Provider [phone] Bell Little MD Primary Care Provid er Siddhartha Cardoso MD Unavailable + [phone] Rhianna Hess MD Unavailable Bell Little MD Unavailable [phone] [facility] Provider Barbi Guy MD Unavailable Etta Ocampo MD Unavailable [phone] Rhina Osullivan MD Unavailable Unavailable Ashley Diaz APRN ADVANCE SCOUT Unavaila ble Delmy Hoffman PA-C Unavailable [phone] Julieta Zelaya MD Primary Care Provider [phone] Encounter Details Date Type Department Care Team (Late Contact Info) Description 09/01/2020 MyC Medical Advice [facility] [address] 1st Floor, [address] [place] [address] Misti Harrison MD [address] [place] [address] [address] [place] [address] Social History Tobacco Use Types [...] have Coronavirus / COVID-19? No / Unsure 08/14/2020 10:29 AM CASE ADVOCATE documented as of this encounter Plan of Treatment Upcoming Encounters Date Type Department Care Team (Late Contact Info) Description 08/31/2025 12:40 PM CASE ADVOCATE Therapy Visit [facility] [address] [facility] [address] [place] [phone] [place] [address] [facility] [address] [place] [address] 09/06/2025 10:10 AM CASE ADVOCATE Therapy Visit [facility] [address] [facility] [address] [place] [phone] [place] [address] [place], [place] [phone] 09/20/2025 10:10 AM CASE ADVOCATE Therapy Visit [facility] [address] [facility] [address] [place] [address] [place] [address] [place], [place] [phone] documented as of this encounter Visit Diagnoses Not on filedocumented in this encounter Additional Health Concerns Assessment Noted Time PHQ-9 Depression Total Score: 5 11/17/19 20 8:44 AM CASE ADVOCATE documented as of this encounter Care Teams Laser Beam Trim Operator Relationship Specialty Start Date End Date Bell Little MD PCP - General Pediatrics 07/11/17 12/11/20 Lisa Singh DO 2024 [place] [address] PCP - General 12/12/20 04/10/21 Bell Little MD PCP - General Pediatrics 04/11/21 08/18/23 Clinic - [facility] [address] [place] [phone] PCP - General Clinic 08/19/23 08/02/25 Julieta Zelaya MD [address] [place] [address] PCP - General Family Medicine 08/03/25 Bell Little MD 1021 [facility] 100 [place] [address] Assigned PCP 11/10/16 11/18/20 Misti Harrison MD [facility] [address] [address] noteman & Neurology - Child & Adolescent Psychiatry 11/29/19 Venkatesh Valenzuela, POMOLOGY TEACHER 2530 [facility] [place] [address] Assigned Pediatric Specialist Provider 07/14/20 11/18/20 Ashley Lopez MD [address] [place] [address] Assigned Musculoskeletal Provider 07/14/20 11/11/20 Misti Harrison MD [address] [place] [address] Assigned Behavioral Health Provider 07/14/20 04/12/24 Ashley Lopez MD [address] [place] [address] Assigned Musculoskeletal Provider 11/19/20 05/17/22 Rhianna Hess MD 2025 [facility] [place] [address] Assigned PCP 11/19/20 08/23/22 Siddhartha Cardoso MD [address] 505 [place] [address] Assigned Pediatric Specialist Provider 04/27/22 07/25/23 Rhianna Hess MD [address] [place] [address] Assigned PCP 08/24/22 05/09/23 Bell Little MD [address] [place], [place] [phone] Assigned PCP 05/10/23 10/15/23 Barbi Guy MD 717 [facility] [address] [place], [place] [address] Assigned PCP 10/16/23 06/13/24 Etta Ocampo MD [address] [place], [place] [phone] Assigned PCP 06/14/24 Rhina Osullivan MD [address] [place] [address] Resident Family Medicine 05/24/25 Ashley Diaz, FILTER TIP CATCHER ADVANCE SCOUT 420 [facility] 450 [place] [address] Nurse Practitioner Colon & Rectal 05/24/25 Delmy Hoffman PA-C 909 [facility] [place] [address] Assigned Surgical Provider 06/14/25 documented as of this encounter
--- OUTSIDE RECORDS SUMMARY | 2025-08-13 18:53 | XMS_ITS | Encounter Summary ---
Author Organization [place] Address [address] [place] [address] Care Team Providers Care Machinist Automotive Name Role Phone Misti Harrison MD Unavailable Misti Harrison MD Unavailable Rhianna Hess MD Unavailable Bell Little MD Primary Care Provid er Siddhartha Cardoso MD Unavailable [phone] Rhianna Hess MD Unavailable Bell Little MD Unavailable [phone] [facility] Primary Ca re Provider Barbi Guy MD Unavailable Etta Ocampo MD Unavailable [phone] Rhina Osullivan MD Unavailable Unavailable Ashley Diaz APRN BINDERY HELPER Unavaila ble Delmy Hoffman PA-C Unavailable [phone] Julieta Zelaya MD Primary Care Provider [phone] Encounter Details Date Type Department Care Team (Late st Contact Info) Description 05/29/2022 MyC Medical Advice [facility] 2024 [place] [address] Andrea Barraza Social History Tobacco [...] st Contact Info) Description 08/31/2025 12:40 PM INTELLIGENCE GROUP SUPERVISOR Therapy Visit [address] [phone] [place] [address] [address] [place] [address] 09/06/2025 10:10 AM INTELLIGENCE GROUP SUPERVISOR Therapy Visit [address] [phone] [place] [address] [address] [place] [address] 09/20/2025 10:10 AM INTELLIGENCE GROUP SUPERVISOR Therapy Visit [address] [phone] [place] [address] [address] [place] [address] documented as of this encounter Visit Diagnoses Not on filedocumented in this encounter Additional Health Concerns Assessment Noted Time PHQ-9 Depression Total Score: 0 11/14/19 8:41 AM INTELLIGENCE GROUP SUPERVISOR documented as of this encounter Care Teams Machinist Automotive Relationship Specialty Start Date End Date Bell Little MD 2024 [place] [address] PCP - General Pediatrics 04/11/21 08/18/23 Clinic - [place] [address] [place] [phone] PCP - General Clinic 08/19/23 08/02/25 Julieta Zelaya MD [address] [place] [id number] PCP - General Family Medicine 08/03/25 [place] [address] [place] [address] neurodiagnostic technician & Neurology - Child & Adolescent Psychiatry 11/29/19 Misti Harrison MD [facility] [address] [address] Assigned Behavioral Health Provider 07/14/20 04/12/24 Rhianna Hess MD 2024 [place] [address] Assigned PCP 11/19/20 08/23/22 Siddhartha Cardoso MD [address] [place] [address] Assigned Pediatric Specialist Provider 04/27/22 07/25/23 Rhianna Hess MD 2025 [place] [address] Assigned PCP 08/24/22 05/09/23 Bell Little MD 1021 [facility] 100 [place] [address] Assigned PCP 05/10/23 10/15/23 Barbi Guy MD 717 [facility] 370 [place] [address] Assigned PCP 10/16/23 06/13/24 Etta Ocampo MD [address] [facility] [address] [facility] 100 [place], [place] [address] Assigned PCP 06/14/24 Rhina Osullivan MD 1099 [facility] 100 [place] [address] Resident Family Medicine 05/24/25 Ashley Diaz, TRAFFIC INSPECTOR BINDERY HELPER 420 [facility] 450 [place] [address] Nurse Practitioner Colon & Rectal 05/24/25 Delmy Hoffman PA-C 909 [place], [place] [address] Assigned Surgical Provider 06/14/25 documented as of this encounter
--- OUTSIDE RECORDS SUMMARY | 2025-08-13 18:53 | XMS_ITS | Encounter Summary ---
Author Organization [place] Address [address] [place] [address]. [place] [address] Care Team Providers Care Cartridge Loading Operator Name Role Phone Misti Harrison MD Unavailable [facility] Primary Ca re Provider Etta Ocampo MD Unavailable [phone] Rhina Osullivan MD Unavailable Unavailable Ashley Diaz APRN AUDIOVISUAL PRODUCTION SPECIALIST Unavaila ble Delmy Hoffamn PA-C Unavailable [phone] Encounter Details Date Type Department Care Team (Latest Contact Info) Description 07/18/2025 Travel Social History Tobacco Use Types Packs/Day [...] st Contact Info) Description 08/31/2025 12:40 PM CUT ROLL MACHINE OPERATOR Therapy Visit [address] [place] [phone] [place] [address] [address] [place] [address] 09/06/2025 10:10 AM CUT ROLL MACHINE OPERATOR Therapy Visit [address] [place] [phone] [place] [address] [address] [place] [address] 09/20/2025 10:10 AM CUT ROLL MACHINE OPERATOR Therapy Visit [address] [facility] [address] [place] [phone] [place] [address] [address] [place] [address] documented as of this encounter Visit Diagnoses Not on filedocumented in this encounter Additional Health Concerns Assessment Noted Time PHQ-9 Depression Total Score: 3 05/05/20 24 12:58 PM CDT documented as of this encounter Care Teams Cartridge Loading Operator Relationship Specialty Start Date End Date Clinic - [facility] 2535 [place] [phone] PCP - General Clinic 08/19/23 08/02/25 Misti Harrison MD [address] [place], [place] [address] applied exercise physiologist & Neurology - Child & Adolescent Psychiatry 11/29/19 Etta Ocampo MD 1099 [facility] 100 [place] [address] Assigned PCP 06/14/24 Rhina Osullivan MD 1099 [facility] 100 [place] [address] Resident Family Medicine 05/24/25 Ashley Diaz APRN AUDIOVISUAL PRODUCTION SPECIALIST [address] [place] [address] 450 [place] [address] Nurse Practitioner Colon & Rectal 05/24/25 Delmy Hoffman PA-C 909 [place], [place] [address] Assigned Surgical Provider 06/14/25 documented as of this encounter
--- OUTSIDE RECORDS SUMMARY | 2025-08-13 18:53 | XMS_ITS | Encounter Summary ---
Author Organization [place] Address [address] [place] [address] Care Team Providers Care Shaper And Presser Name Role Phone Bell Little MD Primary Care Provid er Misti Harrison MD Unavailable Misti Harrison MD Unavailable Ashley Lopez MD Unavailable [phone] Rhianna Hess MD Unavailable Lisa Singh DO Primary Care Provider [phone] Bell Little MD Primary Care Provid er Siddhartha Cardoso MD Unavailable [phone] Rhianna Hess MD Unavailable Bell Little MD Unavailable + [phone] [facility] Provider Barbi Guy MD Unavailable Etta Ocampo MD Unavailable [phone] Rhina Osullivan MD Unavailable Unavailable Ashley Diaz APRN ADMINISTRATIVE RESIDENT Unavaila ble Delmy Hoffman PA-C Unavailable [phone] Julieta Zelaya MD Primary Care Provider [phone] Encounter Details Date Type Department Care Team (Late st Contact Info) Description 11/23/2020 MyC Medical Advice [facility] 2535 [place] [address] Bell Little MD 1021 [facility] [address] [place], [place] [phone] Social History Tobacco Use Types Packs/Day Years [...] encounter Miscellaneous Notes * Telephone Encounter - Bell Little MD - 11/28/2020 11:06 AM ECONOMIC RESEARCH ANALYST If this is a pre-op then acute spot is fine If this is a pre-op plus a well check then 20 minutes is not enough time (can use 2 acutes if we have them for 40 min) OR if we have to use 20 mintues only then tell mom it will be a VERY quick well check plus pre-op (andwrite this in the rooming notes) Bell Little MD OMIC RESEARCH ANALYST documented in this encounter Plan of Treatment Upcoming Encounters Date Type Department Care Team (Late st Contact Info) Description 08/31/2025 12:40 PM ECONOMIC RESEARCH ANALYST Therapy Visit [facility] [address] [facility] [address] [place] [address] [place] [address] [place] [address] 09/06/2025 10:10 AM ECONOMIC RESEARCH ANALYST Therapy Visit [facility] [address] [place] [phone] [place] [address] [place] [address] 09/20/2025 10:10 AM ECONOMIC RESEARCH ANALYST Therapy Visit [facility] [address] [facility] [address] [place] [phone] [place] [address] [place] [address] documented as of this encounter Visit Diagnoses Not on filedocumented in this encounter Additional Health Concerns Assessment Noted Time PHQ-9 Depression Total Score: 0 11/14/19 8:41 AM ECONOMIC RESEARCH ANALYST documented as of this encounter Care Teams Shaper And Presser Relationship Specialty Start Date End Date Bell Little MD PCP - General Pediatrics 07/11/17 12/11/20 Lisa Singh DO 2024 [place] [address] PCP - General 12/12/20 04/10/21 Bell Little MD PCP - General Pediatrics 04/11/21 08/18/23 [facility] - [address] [phone] PCP - General Clinic 08/19/23 08/02/25 Julieta Zelaya MD [address] [place] [address] PCP - General Family Medicine 08/03/25 Misti Harrison MD [facility] [address] [address] field cane scaler helper & Neurology - Child & Adolescent Psychiatry 11/29/19 Misti Harrison MD [facility] [address] [address] Assigned Behavioral Health Provider 07/14/20 04/12/24 Ashley Lopez MD [address] [place] [address] Assigned Musculoskeletal Provider 11/19/20 05/17/22 Rhianna Hess MD [address] [place] [address] Assigned PCP 11/19/20 08/23/22 Siddhartha Cardoso MD [address] [place] [address] Assigned Pediatric Specialist Provider 04/27/22 07/25/23 Rhianna Hess MD 202 [place] [address] Assigned PCP 08/24/22 05/09/23 Bell Little MD [address] [place] [address] Assigned PCP 05/10/23 10/15/23 Barbi Guy MD [address] [place] [address] 370 [place] [address] Assigned PCP 10/16/23 06/13/24 Etta Ocampo MD 1099 [facility] 100 [place], [place] [address] Assigned PCP 06/14/24 Rhina Osullivan MD [address] [address] Resident Family Medicine 05/24/25 Ashley Diaz APRN ADMINISTRATIVE RESIDENT 420 [facility] 450 [place], [place] [address] Nurse Practitioner Colon & Rectal 05/24/25 Delmy Hoffman PA-C 909 [place] [address] Assigned Surgical Provider 06/14/25 documented as of this encounter
--- OUTSIDE RECORDS SUMMARY | 2025-08-13 18:53 | XMS_ITS | Encounter Summary ---
Author Organization [place] Address [address] [place] [address] Care Team Providers Care Rhinestone Setter Name Role Phone Misti Harrison MD Unavailable Misti Harrison MD Unavailable Ashley Lopez MD Unavailable [phone] Rhianna Hess MD Unavailable Lisa Singh DO Primary Care Provider [phone] Bell Little MD Primary Care Provid er Siddhartha Cardoso MD Unavailable [phone] Rhianna Hess MD Unavailable Bell Little MD Unavailable + [phone] [facility] Primary Mo re Provider Barbi Guy MD Unavailable Etta Ocampo MD Unavailable [phone] Rhina Osullivan MD Unavailable Unavailable Ashley Diaz APRN TRANSFUSION AIDE Unavaila ble Delmy Hoffman PA-C Unavailable [phone] Julieta Zelaya MD Primary Care Provider [phone] Encounter Details Date Type Department Care Team (Late Contact Info) Description 01/17/2021 MyC Medical Advice [facility] [address] 1st Floor, [address] [place] [address] Misti Harrison MD [address] [place] [address] [address]275 [place] [address] Social History Tobacco Use Types [...] (Late Contact Info) Description 08/31/2025 12:40 PM HEALTHCARE ECONOMICS CONSULTANT Therapy Visit [facility] [address] [facility] [address] [place] [phone] [place] [address] [place], [place] [address] 09/06/2025 10:10 AM HEALTHCARE ECONOMICS CONSULTANT Therapy Visit [facility] [address] [facility] [address] [place] [phone] [place] [address] [place], [place] [phone] 09/20/2025 10:10 AM HEALTHCARE ECONOMICS CONSULTANT Therapy Visit [facility] [address] [facility] [address] [place] [phone] [place] [address] [facility] 300 [place] [address] documented as of this encounter Visit Diagnoses Not on filedocumented in this encounter Additional Health Concerns Assessment Noted Time PHQ-9 Depression Total Score: 0 11/14/19 8:41 AM HEALTHCARE ECONOMICS CONSULTANT documented as of this encounter Care Teams Rhinestone Setter Relationship Specialty Start Date End Date Lisa Singh DO 2024 [place] [address] PCP - General 12/12/20 04/10/21 Bell Little MD 2024 [place] [address] PCP - General Pediatrics 04/11/21 08/18/23 Clinic - [facility] 2535 [place] [phone] PCP - General Clinic 08/19/23 08/02/25 Julieta Zelaya MD 1687 [place] [address] PCP - General Family Medicine 08/03/25 Misti Harrison MD [address] [place], [place] [address] [place] [address] metal bed assembler & Neurology - Child & Adolescent Psychiatry 11/29/19 Misti Harrison MD 2312 [address] 6[address] [facility] [address]275 [place] [address] Assigned Behavioral Health Provider 07/14/20 04/12/24 Ashley Lopez MD 909 [place] [address] Assigned Musculoskeletal Provider 11/19/20 05/17/22 Rhianna Hess MD [address] [place] [address] Assigned PCP 11/19/20 08/23/22 Siddhartha Cardoso MD 2450 [facility] 505 [place] [address] Assigned Pediatric Specialist Provider 04/27/22 07/25/23 Rhianna Hess MD 2025 [place] [address] Assigned PCP 08/24/22 05/09/23 Bell Little MD 1021 [facility] E [facility] 100 [place] [address] Assigned PCP 05/10/23 10/15/23 Barbi Guy MD 717 [facility] 370 [place] [address] Assigned PCP 10/16/23 06/13/24 Etta Ocampo MD 1099 [facility] 100 [place] [address] Assigned PCP 06/14/24 Rhina Osullivan MD 1099 AILYN CABELLO [facility] 100 [place] [address] Resident Family Medicine 05/24/25 Ashley Diaz APRN TRANSFUSION AIDE [address] [place] [address] 450 [place] [address] Nurse Practitioner Colon & Rectal 05/24/25 Delmy Hoffman PA-C [address] [place] [address] Assigned Surgical Provider 06/14/25 documented as of this encounter
--- OUTSIDE RECORDS SUMMARY | 2025-08-13 18:53 | XMS_ITS | Encounter Summary ---
Author Organization [place] Address [address] [place] [address] Care Team Providers Care Field Reviewer Name Role Phone Misti Harrison MD Unavailable Msiti Harrison MD Unavailable Ashley Lopez MD Unavailable [phone] Rhianna Hess MD Unavailable Bell Little MD Primary Care Provid er Siddhartha Cardoso MD Unavailable [phone] Rhianna Hess MD Unavailable Bell Little MD Unavailable + [phone] [facility] re Provider Barbi Guy MD Unavailable Etta Ocampo MD Unavailable [phone] Rhina Osullivan MD Unavailable Unavailable Ashley Diaz APRN TREATMENT COUNSELOR Unavaila ble Delmy Hoffman PA-C Unavailable [phone] Julieta Zelaya MD Primary Care Provider [phone] Encounter Details Date Type Department Care Team (Late st Contact Info) Description 10/18/2021 MyC Medical Advice [facility] 2024 [place] [address] Misti Harrison MD [address] [place] [address] Generalized anxiety disorder; Separation anxiety disorder Social [...] have Coronavirus / COVID-19? No / Unsure 09/18/2021 2:17 PM DIRECTOR GRAPHICS documented as of this encounter Miscellaneous Notes * Telephone Encounter - Aelisha Lovett CMA - 10/18/2021 11:24 AM DIRECTOR GRAPHICS Refill request received from: Pharmacy ?? Requested medication(s): FLUoxetine (PROZAC) 10 MG capsule ?? Last appointment: 03/28/2021 - [facility], 09/18/2021 - [facility] ?? Any no showed/ canceled visits since last appointment? No ?? Recommended follow up timeframe from last visit: 4-6 weeks - [facility], 2-3 months - [facility] ?? Follow up appointment scheduled for: 12/04/2021- [facility], 11/08/2021 - [facility] ?? Months of medication pended per [facility] refill protocol: 3 months ?? Request was sent to [facility] for approval ?? If patient is due for follow up Appointment required for further refills [phone] was placed in the sig of the medication and encounter was routed to scheduling pool to encourage follow up. ?? Medication pended by: Aleisha Lovett CMA CTOR GRAPHICS documented in this encounter Plan of Treatment Upcoming Encounters Date Type Department Care Team (Late st Contact Info) Description 08/31/2025 12:40 PM DIRECTOR GRAPHICS Therapy Visit [address] [place] [phone] [place] [address] [place], [place] [phone] 09/06/2025 10:10 AM DIRECTOR GRAPHICS Therapy Visit [address] [phone] [place] [address] [place] [address] 09/20/2025 10:10 AM DIRECTOR GRAPHICS Therapy Visit [address] [place] [phone] [place] [address] [place], [place] [phone] documented as of this encounter Visit Diagnoses Diagnosis Generalized anxiety disorder Separation anxiety disorder documented in this encounter Additional Health Concerns Assessment Noted Time PHQ-9 Depression Total Score: 0 11/14/19 21 8:41 AM DIRECTOR GRAPHICS documented as of this encounter Care Teams Field Reviewer Relationship Specialty Start Date End Date Bell Little MD [address] [place] [address] PCP - General Pediatrics 04/11/21 08/18/23 Clinic - [address] [phone] PCP - General Clinic 08/19/23 08/02/25 Julieta Zelaya MD [address] [place] [address] PCP - General Family Medicine 08/03/25 Misti Harrison MD [facility] [address] [address] health insurance sales agent & Neurology - Child & Adolescent Psychiatry 11/29/19 Misit Harrison MD [address] [address] Assigned Behavioral Health Provider 07/14/20 04/12/24 Ashley Lopez MD 9 [place] [address] Assigned Musculoskeletal Provider 11/19/20 05/17/22 Rhianna Hess MD [address] [place] [address] Assigned PCP 11/19/20 08/23/22 Siddhartha Cardoso MD [address] [address] Assigned Pediatric Specialist Provider 04/27/22 07/25/23 Rhianna Hess MD 5 [place] [address] Assigned PCP 08/24/22 05/09/23 Bell Little MD 1021 Sandi [address] 100 [place], [place] [phone] Assigned PCP 05/10/23 10/15/23 Barbi Guy MD 717 [facility] [address] [place], [place] [address] Assigned PCP 10/16/23 06/13/24 Etta Ocampo MD [address] [place], [place] [address] Assigned PCP 06/14/24 Rhina Osullivan MD [address] [facility] 100 [place] [address] Resident Family Medicine 05/24/25 Ashley Diaz APRN TREATMENT COUNSELOR 420 [facility] 450 [place] [address] Nurse Practitioner Colon & Rectal 05/24/25 Delmy Hoffman PA-C 909 [facility] SE [place], [place] [address] Assigned Surgical Provider 06/14/25 documented as of this encounter
--- OUTSIDE RECORDS SUMMARY | 2025-08-13 18:53 | XMS_ITS | Encounter Summary ---
Author Organization [place] Address [address] [place] [address] Care Team Providers Care Electrician Assistant Name Role Phone Bell Little MD Primary Care Provid er Bell Little MD Unavailable +[phone] Misti Harrison MD Unavailable Venkatesh Valenzuela NP Unavailable +[phone] Ashley Lopez MD Unavailable + [phone] Misti Harrison MD Unavailable Ashley Lopez MD Unavailable + [phone] Rhianna Hess MD Unavailable Lisa Singh DO Primary Care Provider [phone] Bell Little MD Primary Care Provid er Siddhartha Cardoso MD Unavailable + [phone] Rhianna Hess MD Unavailable Bell Little MD Unavailable +[phone] [facility] Provider Barbi Guy MD Unavailable Etta Ocampo MD Unavailable +[phone] Rhina Osullivan MD Unavailable Unavailable Ashley Diaz APRN CABLE SYSTEMS INSTALLER Unavaila ble Delmy Hoffman PA-C Unavailable +[phone] Julieta Zelaya MD Primary Care Provider [phone] Encounter Details Date Type Department Care Team (Late Contact Info) Description 10/30/[address] [facility] Pediatric [facility]ty [facility] [address] 1[address] Floor, [address] [place] [address] Misti Harrison MD [address] [place] [address] Social History Tobacco Use Types [...] (Late Contact Info) Description 08/31/2025 12:40 PM COMMUNICATION INSTRUCTOR Therapy Visit [facility] [address] [facility] 300 [place] [address] [place] [address] [facility] 300 [place], [place] [address] 09/06/2025 10:10 AM COMMUNICATION INSTRUCTOR Therapy Visit [facility] [address]322 [facility] [address] [place] [address] [place] [address] [place] [address] 09/20/2025 10:10 AM COMMUNICATION INSTRUCTOR Therapy Visit [facility] [address] [place] [address] [place] [address] [place] [address] [place] [address] documented as of this encounter Visit Diagnoses Not on filedocumented in this encounter Additional Health Concerns Assessment Noted Time PHQ-9 Depression Total Score: 5 11/17/19 20 8:44 AM COMMUNICATION INSTRUCTOR documented as of this encounter Care Teams Electrician Assistant Relationship Specialty Start Date End Date Bell Little MD PCP - General Pediatrics 07/11/17 12/11/20 Lisa Singh DO 2024 [place] [address] PCP - General 12/12/20 04/10/21 Bell Little MD PCP - General Pediatrics 04/11/21 08/18/23 Clinic - [facility] [address] [place] [address] PCP - General Clinic 08/19/23 08/02/25 Julieta Zelaya MD 1687 [place] [address] PCP - General Family Medicine 08/03/25 Bell Little MD 1021 [place] [facility] [address] [place] [address] Assigned PCP 11/10/16 11/18/20 Misti Harrison MD [address] [place] [address] greenskeeper supervisor & Neurology - Child & Adolescent Psychiatry 11/29/19 Venkatesh Valenzuela, RN DOCUMENT IMPROVEMENT SPECIALIST [address] [facility] [address] Assigned Pediatric Specialist Provider 07/14/20 11/18/20 Ashley Lopez MD [address] [place] [address] Assigned Musculoskeletal Provider 07/14/20 11/11/20 Misti Harrison MD [facility] [place] [address] Assigned Behavioral Health Provider 07/14/20 04/12/24 Ashley Lopez MD [address] [place] [address] Assigned Musculoskeletal Provider 11/19/20 05/17/22 Rhianna Hess MD [address] [place], [place] [address] Assigned PCP 11/19/20 08/23/22 Siddhartha Cardoso MD [address] 505 [place] [address] Assigned Pediatric Specialist Provider 04/27/22 07/25/23 Rhianna Hess MD [address] [place] [address] Assigned PCP 08/24/22 05/09/23 Bell Little MD 1021 [place] [facility] [address] [place], [place] [address] Assigned PCP 05/10/23 10/15/23 aBrbi Guy MD [address]17 [facility] [address] [place], [place] [address] Assigned PCP 10/16/23 06/13/24 Etta Ocampo MD [address] [place], [place] [address] Assigned PCP 06/14/24 Rhina Osullivan MD [address] [facility] 100 [place] [address] Resident Family Medicine 05/24/25 Aslhey Diaz, VICKI CABLE SYSTEMS INSTALLER 420 [facility] 450 [place] [address] Nurse Practitioner Colon & Rectal 05/24/25 Delmy Hoffman PA-C 909 [facility] [place] [address] Assigned Surgical Provider 06/14/25 documented as of this encounter
--- OUTSIDE RECORDS SUMMARY | 2025-08-13 18:54 | XMS_ITS | Encounter Summary ---
Author Organization [place] Address [address] [place] [address] Care Team Providers Care Yacht Captain Name Role Phone Bell Little MD Primary Care Provid er Bell Little MD Unavailable [phone] Misti Harrison MD Unavailable Venkatesh Valenzuela NP Unavailable [phone] Ashley Lopez MD Unavailable + [phone] Misti Harrison MD Unavailable Ashley Lopez MD Unavailable + [phone] Rhianna Hess MD Unavailable Lisa Singh DO Primary Care Provider [phone] Bell Little MD Primary Care Provid er Siddhartha Cardoso MD Unavailable + [phone] Rhianna Hess MD Unavailable Bell Little MD Unavailable +[phone] [facility] Provider Barbi Guy MD Unavailable Etta Ocampo MD Unavailable +[phone] Rhina Osullivan MD Unavailable Unavailable Ashley Diaz APRN INDUSTRIAL ROOF PLUMBER Unavaila ble Delmy Hoffman PA-C Unavailable +[phone] Julieta Zelaya MD Primary Care Provider [phone] Encounter Details Date Type Department Care Team (Late st Contact Info) Description 12/13/2019 MyC Medical Advice [facility] [place] [id number] [address] [address] Misti Harrison MD [facility] [address] [address] Social History Tobacco Use Types [...] (Late Contact Info) Description 08/31/2025 12:40 PM CLOSET BUILDER Therapy [facility] [address] [facility] 300 [place] [phone] [place] [address] [facility] 300 [place], [place] [phone] 09/06/2025 10:10 AM CLOSET BUILDER Therapy Visit [facility] [address]43 [facility] [address] [place] [address] [place] [address] [place] [address] 09/20/2025 10:10 AM CLOSET BUILDER Therapy Visit [facility] [address]37 [facility] [address] [place] [address] [place] [address] [place] [address] documented as of this encounter Visit Diagnoses Not on filedocumented in this encounter Additional Health Concerns Assessment Noted Time PHQ-9 Depression Total Score: 5 11/17/19 20 8:44 AM CLOSET BUILDER documented as of this encounter Care Teams Yacht Captain Relationship Specialty Start Date End Date Bell Little MD PCP - General Pediatrics 07/11/17 12/11/20 Lisa Singh DO 2024 [place] [address] PCP - General 12/12/20 04/10/21 Bell Little MD PCP - General Pediatrics 04/11/21 08/18/23 Clinic - [facility] [address] [place] [phone] PCP - General Clinic 08/19/23 08/02/25 Julieta Zelaya MD 1687 [place] [address] PCP - General Family Medicine 08/03/25 Bell Little MD 1021 [place] [facility] [address] 100 [place] [address] Assigned PCP 11/10/16 11/18/20 Misti Harrison MD [address] [place] [address] boat cleaning supervisor & Neurology - Child & Adolescent Psychiatry 11/29/19 Venkatesh Valenzuela, REGULATORY LEADER [address] [facility] [place] [address] Assigned Pediatric Specialist Provider 07/14/20 11/18/20 Ashley Lopez MD [address] [place] [address] Assigned Musculoskeletal Provider 07/14/20 11/11/20 Misti Harrison MD [address] [place] [address] Assigned Behavioral Health Provider 07/14/20 04/12/24 Ashley Lopez MD [address] [place] [address] Assigned Musculoskeletal Provider 11/19/20 05/17/22 Rhianna Hess MD [address] [place], [place] [address] Assigned PCP 11/19/20 08/23/22 Siddhartha Cardoso MD [address] [place] [address] 505 [place], [place] 308994 Assigned Pediatric Specialist Provider 04/27/22 07/25/23 Rhianna Hess MD [address] [place] [address] Assigned PCP 08/24/22 05/09/23 Bell Little MD [address] [place], [place] [address] Assigned PCP 05/10/23 10/15/23 Barbi Guy MD 717 [facility] [address] [place], [place] 65[address] Assigned PCP 10/16/23 06/13/24 Etta Ocampo MD [address] [place], [place] [address] Assigned PCP 06/14/24 Rhina Osullivan MD [address] [place] [address] Resident Family Medicine 05/24/25 Ashley Diaz, VICKI INDUSTRIAL ROOF PLUMBER 420 [facility] 450 [place] [address] Nurse Practitioner Colon & Rectal 05/24/25 Delmy Hoffman PA-C 909 [facility] [place] [address] Assigned Surgical Provider 06/14/25 documented as of this encounter
--- OUTSIDE RECORDS SUMMARY | 2025-08-13 18:54 | XMS_ITS | Encounter Summary ---
Author Organization [place] Address [address] [place] [address] Care Team Providers Care Parent Educator Name Role Phone Bell Little MD Primary Care Provid er Bell Little MD Unavailable [phone] Misti Harrison MD Unavailable Venkatesh Valenzuela NP Unavailable Ashley Lopez MD Unavailable + [phone] Misti Harrison MD Unavailable Ashley Lopez MD Unavailable + [phone] Rhianna Hess MD Unavailable iLsa Singh DO Primary Care Provider [phone] Bell Little MD Primary Care Provid er Siddhartha Cardoso MD Unavailable + [phone] Rhianna Hess MD Unavailable Bell Little MD Unavailable [phone] [facility] Provider Barbi Guy MD Unavailable Etta Ocampo MD Unavailable +[phone] Rhina Osullivan MD Unavailable Unavailable Ashley Diaz APRN VEGETABLE FARMER Unavaila ble Delmy Hoffman PA-C Unavailable [phone] Julieta Zelaya MD Primary Care Provider [phone] Encounter Details Date Type Department Care Team (Late st Contact Info) Description 12/16/2019 MyC Medical Advice [facility] [place] [id number] [address] [address] Misti Harrison MD [facility]2 [address] [address] Social History Tobacco Use Types [...] (Late Contact Info) Description 08/31/2025 12:40 PM VAN LOADER Therapy Visit [facility] [address] [facility] 300 [place] [phone] [place] [address] [facility] 300 [place], [place] [address] 09/06/2025 10:10 AM VAN LOADER Therapy Visit [facility] [address] [facility] [address] [place] [address] [place] [address] [place] [address] 09/20/2025 10:10 AM VAN LOADER Therapy Visit [facility] [address] [facility] [address] [place] [address] [place] [address] [place] [address] documented as of this encounter Visit Diagnoses Not on filedocumented in this encounter Additional Health Concerns Assessment Noted Time PHQ-9 Depression Total Score: 5 11/17/19 20 8:44 AM VAN LOADER documented as of this encounter Care Teams Parent Educator Relationship Specialty Start Date End Date Bell Little MD PCP - General Pediatrics 07/11/17 12/11/20 Lisa Singh DO 2024 [place] [address] PCP - General 12/12/20 04/10/21 Bell Little MD PCP - General Pediatrics 04/11/21 08/18/23 Clinic - [facility] [address] [place] [phone] PCP - General Clinic 08/19/23 08/02/25 Julieta Zelaya MD 1687 [place] [address] PCP - General Family Medicine 08/03/25 Bell Little MD 1021 [facility] [address] 100 [place] [address] Assigned PCP 11/10/16 11/18/20 Misti Harrison MD [address] [place] [address] medical parasitologist & Neurology - Child & Adolescent Psychiatry 11/29/19 Venkatesh Valenzuela, AGRICULTURAL EXTENSION SPECIALIST [address] [facility] [place] [address] Assigned Pediatric Specialist Provider 07/14/20 11/18/20 Ashley Lopez MD [address] [place] [address] Assigned Musculoskeletal Provider 07/14/20 11/11/20 Misti Harrison MD [address] [place] [address] Assigned Behavioral Health Provider 07/14/20 04/12/24 Ashley Lopez MD [address] [place] [address] Assigned Musculoskeletal Provider 11/19/20 05/17/22 Rhianna Hess MD [address] [place], [place] 4[address] Assigned PCP 11/19/20 08/23/22 Siddhartha Cardoso MD [address]50 [place] [address] 505 [place], [place] 929904 Assigned Pediatric Specialist Provider 04/27/22 07/25/23 Rhianna Hess MD [address] [place] [address] Assigned PCP 08/24/22 05/09/23 Bell Little MD [address] [place], [place] [address] Assigned PCP 05/10/23 10/15/23 Barbi Guy MD 717 [facility] [address] [place], [place] 49[address]45 Assigned PCP 10/16/23 06/13/24 Etta Ocampo MD [address] [place], [place] [address] Assigned PCP 06/14/24 Rhina Osullivan MD [address] [place] [address] Resident Family Medicine 05/24/25 Ashley Diaz, VICKI VEGETABLE FARMER 420 [facility] 450 [place] [address] Nurse Practitioner Colon & Rectal 05/24/25 Delmy Hoffman PA-C 909 [facility] [place] [address] Assigned Surgical Provider 06/14/25 documented as of this encounter
--- OUTSIDE RECORDS SUMMARY | 2025-08-13 18:54 | XMS_ITS | Encounter Summary ---
Author Organization [place] Address [address] [place] [address] Care Team Providers Care Finance Manager Name Role Phone Bell Little MD Primary Care Provid er Bell Little MD Unavailable [phone] Misti Harrison MD Unavailable Venkatesh Valenzuela NP Unavailable [phone] Ashley Lopez MD Unavailable + [phone] Misti Harrison MD Unavailable Ashley Lopez MD Unavailable + [phone] Rhianna Hess MD Unavailable Lisa Singh DO Primary Care Provider [phone] Bell Little MD Primary Care Provid er Siddhartha Cardoso MD Unavailable + [phone] Rhianna Hess MD Unavailable Bell Little MD Unavailable +[phone] [facility] Provider Barbi Guy MD Unavailable Etta Ocampo MD Unavailable +[phone] Rhina Osullivan MD Unavailable Unavailable Ashley Diaz APRN CHIEF SCIENCE OFFICER Unavaila ble Delmy Hoffman PA-C Unavailable [phone] Julieta Zelaya MD Primary Care Provider [phone] Encounter Details Date Type Department Care Team (Late st Contact Info) Description 02/15/2020 MyC Medical Advice [facility] Mental Health & Addiction [place] [id number] [address] [address] Misti Harrison MD [facility] [address] [address] Social History Tobacco Use Types [...] (Late Contact Info) Description 08/31/2025 12:40 PM FIELD ASSESSOR Therapy Visit [facility] [address] [facility] 300 [place] [phone] [place] [address] [address] [place], [place] [address] 09/06/2025 10:10 AM FIELD ASSESSOR Therapy Visit [facility] [address] [facility] [address] [place] [address] [place] [address] [place] [address] 09/20/2025 10:10 AM FIELD ASSESSOR Therapy Visit [facility] [address]10 [facility] [address] [place] [address] [place] [address] [place] [address] documented as of this encounter Visit Diagnoses Not on filedocumented in this encounter Additional Health Concerns Assessment Noted Time PHQ-9 Depression Total Score: 5 11/17/19 20 8:44 AM FIELD ASSESSOR documented as of this encounter Care Teams Finance Manager Relationship Specialty Start Date End Date Bell Little MD PCP - General Pediatrics 07/11/17 12/11/20 Lisa Singh DO 2024 [place] [address] PCP - General 12/12/20 04/10/21 Bell Little MD PCP - General Pediatrics 04/11/21 08/18/23 Clinic - [facility] [address] [place] [phone] PCP - General Clinic 08/19/23 08/02/25 Julieta Zelaya MD 1687 [place] [address] PCP - General Family Medicine 08/03/25 Bell Little MD 1021 [facility] [address] [place] [address] Assigned PCP 11/10/16 11/18/20 Misti Harrison MD [address] [place] [address] home health care respiratory therapist & Neurology - Child & Adolescent Psychiatry 11/29/19 Venkatesh Valenzuela, AUTOMOBILE CONTRACT CLERK [address] [facility] [place] [place] [address] Assigned Pediatric Specialist Provider 07/14/20 11/18/20 Ashley Lopez MD [address] [place] [address] Assigned Musculoskeletal Provider 07/14/20 11/11/20 Misti Harrison MD [address] [place] [address] Assigned Behavioral Health Provider 07/14/20 04/12/24 Ashley Lopez MD [address] [place] [address] Assigned Musculoskeletal Provider 11/19/20 05/17/22 Rhianna Hess MD [address] [place], [place] [address] Assigned PCP 11/19/20 08/23/22 Siddhartha Cardoso MD [address] 505 [place], [place] 5447[address] Assigned Pediatric Specialist Provider 04/27/22 07/25/23 Rhianna Hess MD [address] [place] [address] Assigned PCP 08/24/22 05/09/23 Bell Little MD [address] [place], [place] [address] Assigned PCP 05/10/23 10/15/23 Barbi Guy MD 717 [facility] [address] [place], [place] 3[address] Assigned PCP 10/16/23 06/13/24 Etta Ocampo MD [address] [place], [place] [address] Assigned PCP 06/14/24 Rhina Osullivan MD [address] [place] [address] Resident Family Medicine 05/24/25 Ashley Diaz, VICKI CHIEF SCIENCE OFFICER 420 [facility] 450 [place] [address] Nurse Practitioner Colon & Rectal 05/24/25 Delmy Hoffman PA-C 909 [facility] [place] [address] Assigned Surgical Provider 06/14/25 documented as of this encounter
--- OUTSIDE RECORDS SUMMARY | 2025-08-13 18:54 | XMS_ITS | Encounter Summary ---
Author Organization [place] Address [address] [place] [address] Care Team Providers Care Operations And Maintenance Technican Name Role Phone Bell Little MD Primary Care Provid er Bell Little MD Unavailable [phone] Misti Harrison MD Unavailable Venkatesh Valenzuela NP Unavailable [phone] Ashley Lopez MD Unavailable + [phone] Misti Harrison MD Unavailable Ashley Lopez MD Unavailable + [phone] Rhianna Hess MD Unavailable Lisa Singh DO Primary Care Provider [phone] Bell Little MD Primary Care Provid er Siddhartha Cardoso MD Unavailable + [phone] Rhianna Hess MD Unavailable Bell Little MD Unavailable +[phone] [facility] Provider Barbi Guy MD Unavailable Etta Ocampo MD Unavailable +[phone] Rhina Osullivan MD Unavailable Unavailable Ashley Diaz APRN TRANSITIONAL NURSE Unavaila ble Delmy Hoffman PA-C Unavailable +[phone] Julieta Zelaya MD Primary Care Provider [phone] Encounter Details Date Type Department Care Team (Late st Contact Info) Description 11/18/2019 MyC Medical Advice [facility] 2535 [place] [address] Bell Little MD 1021 [facility] 100 [place], [place] [phone] Social History Tobacco Use Types Packs/Day Years [...] st Contact Info) Description 08/31/2025 12:40 PM FX ARTIST Therapy Visit [facility] [address] [facility] [address] [place] [phone] [place] [address] [facility] 300 [place], [place] [phone] 09/06/2025 10:10 AM FX ARTIST Therapy Visit [facility] [address] [facility] [address] [place] [phone] [place] [address] [place] [address] 09/20/2025 10:10 AM FX ARTIST Therapy Visit [facility] [address] [facility] [address] [place] [address] [place] [address] [place] [address] documented as of this encounter Visit Diagnoses Not on filedocumented in this encounter Additional Health Concerns Assessment Noted Time PHQ-9 Depression Total Score: 5 11/17/19 20 8:44 AM FX ARTIST documented as of this encounter Care Teams Operations And Maintenance Technican Relationship Specialty Start Date End Date Bell Little MD PCP - General Pediatrics 07/11/17 12/11/20 Lisa Singh DO 2024 [place] [address] PCP - General 12/12/20 04/10/21 Bell Little MD PCP - General Pediatrics 04/11/21 08/18/23 Clinic - [facility] 2535 [place] [phone] PCP - General Clinic 08/19/23 08/02/25 Julieta Zelaya MD 1687 [place] [address] PCP - General Family Medicine 08/03/25 Bell Little MD 1021 [facility] E [facility] 100 [place] [address] Assigned PCP 11/10/16 11/18/20 Misti Harrison MD [address] [address] draughtsman & Neurology - Child & Adolescent Psychiatry 11/29/19 Venkatesh Valenzuela, TOOL/DIE MAKER [address] [facility] [place] [address] Assigned Pediatric Specialist Provider 07/14/20 11/18/20 Ashley Lopez MD [address] [place] [address] Assigned Musculoskeletal Provider 07/14/20 11/11/20 Misti Harrison MD [address] [address] Assigned Behavioral Health Provider 07/14/20 04/12/24 Ashley Lopez MD [address] [place] [address] Assigned Musculoskeletal Provider 11/19/20 05/17/22 Rhianna Hess MD [address] [place] [address] Assigned PCP 11/19/20 08/23/22 Siddhartha Cardoso MD 2450 [facility] 505 [place] [address] Assigned Pediatric Specialist Provider 04/27/22 07/25/23 Rhianna Hess MD [address] [place] [address] Assigned PCP 08/24/22 05/09/23 Bell Little MD [address] [place], [place] [address] Assigned PCP 05/10/23 10/15/23 Barbi Guy MD 717 [facility] [address] [place], [place] [address] Assigned PCP 10/16/23 06/13/24 Etta Ocamop MD [address] [place], [place] [address] Assigned PCP 06/14/24 Rhina Osullivan MD [address] [place] [address] Resident Family Medicine 05/24/25 Ashley Diaz, BASKET BRAIDER TRANSITIONAL NURSE 420 [facility] 450 [place] [address] Nurse Practitioner Colon & Rectal 05/24/25 Delmy Hoffman PA-C 909 [place] [address] Assigned Surgical Provider 06/14/25 documented as of this encounter
[2025-08-13 19:07] VITALS: BP 117/73; PULSE 100; RESP 16; TEMP 36.6; O2SAT 97; BMI 25.3
--- NOTE | 2025-08-13 19:20 | CRLHL7_ITS ---
For Patients: As a result of the Cures Act, medical imaging exams and procedure reports are released immediately into your electronic medical record. You may view this report before your referring provider. If you have questions, please contact your health care provider. INDICATION: Nose Injury, fall and hit nose TECHNIQUE: Nasal bone radiograph 3 views COMPARISON: None FINDINGS: Bone: Nondisplaced bilateral nasal bone fractures are noted. The anterior inferior nasal spine is unremarkable in appearance. Sinus: The visualized paranasal sinuses are unremarkable in appearance. Soft tissue: Unremarkable. No radiopaque foreign bodies are seen. IMPRESSION: 1. Nondisplaced bilateral nasal bone fractures are noted. Dictated by Randall Pina MD @ 08/13/2025 7:45:57 PM Dictated by: Randall Pina MD @ 08/13/2025 19:46:09 (Electronically Signed)
--- NOTE | 2025-08-13 19:23 | ED.GENADULT ---
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 She was preparing for a dance event. This happened this afternoon. She had a scratch on the external part of her nose her left nose was bleeding pretty steadily and now it stopped. She denies significant headache neck pain she feels she has got tenderness behind her nose. She has been healthy. She takes bupropion and fluoxetine. She is here with her sister and father. Related Data Home Medications ?Medication ?Instructions ?Recorded ?Confirmed bupropion HCl 150 mg 24 hr tablet, 150 mg PO QAM 07/01/24 07/01/24 extended release fluoxetine 20 mg capsule 20 mg PO DAILY 07/01/24 07/01/24 Allergies Allergy/AdvReac Type Severity Reaction Status Date / Time No Known Drug Allergies Allergy Verified 07/01/24 13:52 Review of Systems Status of ROS: Reports: 6 or more systems reviewed and unremarkable except as noted in History and below Exam Narrative: Exam Narrative: Objective: The patient has a scratch over her nose. Nasal inspection shows some friability of the left nasal mucosa along the septum, there is a little more soft tissue swelling on the right side of the septum. Perhaps even some slight septal deviation to the right. There is an open airway both sides however . No septal hematoma noted on either side. She has palpable tenderness over her nasal bridge externally. There is no active bleeding internally. Const: Vital Signs, click to edit/add: Vital Signs - 24 hr 08/13/25 19:07 Temperature 97.8 F Pulse Rate [Left P ulse Oximeter] 100 Respiratory Rate 16 Blood Pressure [Ri ght Upper Arm] 117/73 Pulse Oximetry 97 Oxygen Delivery Me thod Room Air Course Vital Signs Vital signs: Initial Vital Signs Temperature 97.8 F 08/13/25 19:07 Temperature Source Temporal Artery Scan 08/13/25 19:07 Pulse Rate 100 08/13/25 19:07 Pulse Rhythm Regular 08/13/25 19:07 Respiratory Rate 16 08/13/25 19:07 Blood Pressure 117/73 08/13/25 19:07 Blood Pressure Mean 87 08/13/25 19:07 Blood Pressure Position Sitting 08/13/25 19:07 Pulse Oximetry 97 08/13/25 19:07 Oxygen Delivery Method Room Air 08/13/25 19:07 Vital Signs Temperature 97.8 F 08/13/25 19:07 Pulse Rate 100 08/13/25 19:07 Respiratory Rate 16 08/13/25 19:07 Blood Pressure 117/73 08/13/25 19:07 Pulse Oximetry 97 08/13/25 19:07 Oxygen Delivery Method Room Air 08/13/25 19:07 Temperature 97.8 F 08/13/25 19:07 Pulse Rate 100 08/13/25 19:07 Respiratory Rate 16 08/13/25 19:07 Blood Pressure 117/73 08/13/25 19:07 Pulse Oximetry 97 08/13/25 19:07 Oxygen Delivery Method Room Air 08/13/25 19:07 Medical Decision Making MDM Narrative Medical decision making narrative: [age] year white female who fell on her nose. She has no head injury symptoms, she has no pain in her neck or back. No other injuries. She is ambulatory without difficulty. She has nasal swelling and tenderness, perhaps mild lead rightward deviated septum but no septal hematoma. Will check a quick x-ray to see if there is any marked abnormality. I would recommend at that point they follow-up with Dr Arizmendi in the next 7-10 days our ENT specialist. At that time her swelling should be down the patient should be able to get assessment of her septum and intranasal structures. She was comfortable the plan. I would recommend light activity in the interim, no contact sports, no heavy exertional activity. Avoid trauma to the nose as possible. Tylenol or Advil as needed, ice to the external nose as needed. Addendum 7:30 p.m.: The patient has a nasal fracture, not markedly displaced. Her septal view shows just a minimal rightward been but actually fairly well aligned. Patient will be discharged home, light activity, no contact sports, ice, Tylenol Advil as needed, follow-up with ENT as recommended. Discharge Plan Discharge Clinical Impression: Injury of nose Patient Disposition: Home, Self-Care Condition: Stable Additional Instructions: Recommend follow-up with Dr. arizmendi in 7-10 days. Advil or Tylenol as needed, ice to the nasal bridge as tolerated. Perhaps 3-4 minutes 3 times a day for few days. Light activity recommended, no contact sports. Please give ENT number for them to contact Activity Level: Light activity Discharge Diet: Regular Prescriptions: No Action bupropion HCl 150 mg tablet extended release 24 hr 150 mg PO QAM fluoxetine 20 mg capsule 20 mg PO DAILY Follow Up/Referrals: Provider,Not a Local [Primary Care Provider, Family Practice] Stand Alone Forms: [email or web address] Info Instructions
== END 2025-08-13 19:39 | disposition home or self-care (01) ==
LOC: ED 19:26
PROVIDERS: Emergency Provider Family Medicine
DX: S02.2XXA Fracture of nasal bones, initial encounter for closed fracture (principal); S00.31XA Abrasion of nose, initial encounter; W01.198A Fall on same level from slipping, tripping and stumbling with subsequent striking against other object, initial encounter; Y93.41 Activity, dancing; Y92.89 Other specified places as the place of occurrence of the external cause
CPT/HCPCS: 70160; 99283; 99284